=== PATIENT | male | born 1965 | race Caucasian/White ===

== ENCOUNTER 2017-04-18 20:29 | Emergency (ER) | payer BC, OTHER ==
[~2017-04-18] VITALS: Ht 185.4 cm; Wt 71.7 kg
[~2017-04-18 20:29] MED LIST: DPKEC500 PO; IBUP200C11 PO; KPP/250 PO
[2017-04-18 20:32] VITALS: TEMP 36.3; Ht 185.4 cm; Wt 71.7 kg
[2017-04-18] MEDS ORDERED: DPKEC250 PO (21:20)
[2017-04-18] MEDS ORDERED: ONDANSETRON INJ 2 MG/ML 2 ML VIAL IV STA (21:35)
[2017-04-18] MEDS ORDERED: SODIUM CHLORIDE 0.9% 1000ML 1,000 ML IV STA (21:35)
--- NOTE | 2017-04-18 21:39 | EMERGENCY ROOM VISIT NOTE ---
History Report prepared by Rajesh: Bobby Wolff Under the Supervision of: Dr. Bimal Ferreira D.O. First contact with patient: 21:31 Chief Complaint: DIZZY Stated Complaint: NAUSEA,DIZZY,FEVER,MIGRAINE Nursing Triage Summary: Pt c/o dizziness, nausea, mid abd pain since Friday. "I've been jane wobbly". Hx of Epilepsy History of Present Illness The patient is a 52 year old male who presents to the Emergency Room with complaints of a headache that began 2 days ago. He has a past medical history of migraines, and this is quite normal for him. He also has a history of epilepsy. However, his symptoms worsened today. 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 He denies any fevers, vomiting, diarrhea, or abnormal urinary symptoms. Source of History: patient Onset: 2 days ago Position: head Symptom Intensity: moderate Quality: ache Timing: worsening Associated Symptoms: + nausea, + abdominal pain, No fevers, No vomiting, No diarrhea, No urinary symptoms Note: He is also dizzy. Review of Systems See HPI for pertinent positives and negatives. A total of ten systems were reviewed and were otherwise negative. Past Medical & Surgical Medical Problems: (1) Epilepsy Unspec W/O Mention Intractable Epilepsy (2) Low back pain (3) Nasal Bone Fx-Open (4) Spasm of back muscles (5) Tobacco Use Disorder Family History Cancer Diabetes mellitus Lung disease Seizures Social History Smoking Status: Current Some Day Smoker Alcohol Use: none Housing Status: lives alone Occupation Status: employed Current/Historical Medications Scheduled Divalproex Sodium (Divalproex Sodium Dr), 1,000 MG PO BID Divalproex Sodium (Divalproex Sodium Dr), 250 MG PO BID Scheduled PRN Ibuprofen (Advil Migraine), 200 MG PO BID PRN for Headache Allergies Coded Allergies: Mushroom (Verified Allergy, Unknown, ., 02/05/16) Physical Exam Vital Signs Date Time Temp Pulse Resp B/P (MAP) Pulse Ox O2 Delivery O2 Flow Rate FiO2 04/18/17 21:47 61 18 113/78 96 Room Air 04/18/17 21:41 98 Room Air 04/18/17 21:12 96 Room Air 04/18/17 21:11 67 18 109/75 96 Room Air 04/18/17 21:02 68 04/18/17 20:32 36.3 91 18 107/75 97 Room Air Physical Exam GENERAL: Awake, alert, well-appearing, in no distress HENT: Normocephalic, atraumatic. Oropharynx unremarkable. Poor dentition. EYES: Normal conjunctiva. Sclera non-icteric. NECK: Supple. No nuchal rigidity. FROM. No JVD. RESPIRATORY: Clear to auscultation. CARDIAC: Regular rate, normal rhythm. Extremities warm and well perfused. Pulses equal. ABDOMEN: Soft, non-distended. No tenderness to palpation. No rebound or guarding. No masses. RECTAL: Deferred. MUSCULOSKELETAL: Chest examination reveals no tenderness. The back is symmetrical on inspection without obvious abnormality. There is no CVA tenderness to palpation. No joint edema. LOWER EXTREMITIES: Calves are equal size bilaterally and non-tender. No edema. No discoloration. NEURO: Normal sensorium. No sensory or motor deficits noted. SKIN: No rash or jaundice noted. Medical Decision & Procedures Laboratory Results 04/18/17 21:10 Red Blood Count 4.26, Mean Corpuscular Volume 90.4, Mean Corpuscular Hemoglobin 31.9, Mean Corpuscular Hemoglobin Concent 35.3, Mean Platelet Volume 10.1, Neutrophils (%) (Auto) 73.3, Lymphocytes (%) (Auto) 18.7, Monocytes (%) (Auto) 7.5, Eosinophils (%) (Auto) 0.3, Basophils (%) (Auto) 0.1, Neutrophils # (Auto) 5.47, Lymphocytes # (Auto) 1.40, Monocytes # (Auto) 0.56, Eosinophils # (Auto) 0.02, Basophils # (Auto) 0.01 04/18/17 21:10 Test 04/18/17 21:10 White Blood Count 7.47 K/uL (4.8-10.8) Red Blood Count 4.26 M/uL (4.7-6.1) Hemoglobin 13.6 g/dL (14.0-18.0) Hematocrit 38.5 % (42-52) Mean Corpuscular Volume 90.4 fL (80-100) Mean Corpuscular Hemoglobin 31.9 pg (25-34) Mean Corpuscular Hemoglobin Concent 35.3 g/dl (32-36) Platelet Count 154 K/uL (130-400) Mean Platelet Volume 10.1 fL (7.4-10.4) Neutrophils (%) (Auto) 73.3 % Lymphocytes (%) (Auto) 18.7 % Monocytes (%) (Auto) 7.5 % Eosinophils (%) (Auto) 0.3 % Basophils (%) (Auto) 0.1 % Neutrophils # (Auto) 5.47 K/uL (1.4-6.5) Lymphocytes # (Auto) 1.40 K/uL (1.2-3.4) Monocytes # (Auto) 0.56 K/uL (0.11-0.59) Eosinophils # (Auto) 0.02 K/uL (0-0.5) Basophils # (Auto) 0.01 K/uL (0-0.2) RDW Standard Deviation 43.2 fL (36.4-46.3) RDW Coefficient of Variation 13.1 % (11.5-14.5) Immature Granulocyte % (Auto) 0.1 % Immature Granulocyte # (Auto) 0.01 K/uL (0.00-0.02) Anion Gap 7.0 mmol/L (3-11) Est Creatinine Clear Calc Drug Dose 77.9 ml/min Estimated GFR () 87.7 Estimated GFR (Non- 75.7 BUN/Creatinine Ratio 29.3 (10-20) Calcium Level 8.4 mg/dl (8.5-10.1) Total Bilirubin 0.2 mg/dl (0.2-1) Direct Bilirubin < 0.1 mg/dl (0-0.2) Aspartate Amino Transf (AST/SGOT) 15 U/L (15-37) Alanine Aminotransferase (ALT/SGPT) 21 U/L (12-78) Alkaline Phosphatase 41 U/L (45-117) Total Protein 6.3 gm/dl (6.4-8.2) Albumin 3.2 gm/dl (3.4-5.0) Laboratory results reviewed by me Medications Administered Medications (Trade) Dose Ordered Sig/Juan Route Start Time Stop Time Status Last Admin Dose Admin Sodium Chloride 1,000 ml @ 999 mls/hr Q1H1M STAT IV 04/18/17 21:35 04/18/17 22:35 04/18/17 21:44 999 MLS/HR Ondansetron HCl (Zofran Inj) 4 mg NOW STAT IV 04/18/17 21:35 04/18/17 21:37 DC 04/18/17 21:44 4 MG ECG Indication: nausea Rate (beats per minute): 64 Rhythm: sinus rhythm Findings: RBBB, no acute ischemic change, other (Normal axis) ED Course 2130: The patient was evaluated in room B4B. A complete history and physical exam was performed. 2134: Ordered Zofran Inj 4 mg IV, Sodium Chloride 1000 ml @ 999 mls/hr IV 2215: I reevaluated the patient. Discussed results and discharge instructions: He verbalized understanding and agreement. The patient is ready for discharge. Medical Decision Differential diagnoses include dehydration, metabolic derangement, viral syndrome, and gastroenteritis. 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 I suspect that his symptoms are suggestive of dehydration. Patient states much improved at 2218 on reexamination. Patient is nonfocal neurologically. Medication Reconcilliation Current Medication List: was personally reviewed by me Blood Pressure Screening Patient's blood pressure: Normal blood pressure Blood pressure disposition: Did not require urgent referral Impression Primary Impression: Dizziness Additional Impression: Mild dehydration Scribe Attestation The scribe's documentation has been prepared under my direction and personally reviewed by me in its entirety. I confirm that the note above accurately reflects all work, treatment, procedures, and medical decision making performed by me. Departure Information Dispostion Home / Self-Care Referrals Faraz Downey, Corina.O. (PCP) Forms HOME CARE DOCUMENTATION FORM, IMPORTANT VISIT INFORMATION Patient Instructions ED Dehydration, My [facility] Health Problem Qualifiers
[2017-04-18 21:41] VITALS: O2SAT 98
[2017-04-18 21:45] LABS: BASO % 0.1 %; BASO ABS # 0.01 K/uL (0-0.2); COMPLETE YES; EOS % 0.3 %; HEMATOCRIT 38.5 % (42-52); IG% 0.1 %; LYMPH % 18.7 %; MEAN CELL VOLUME 90.4 fL (80-100); MEAN CORPUSCULAR HEMOGLOBIN 31.9 pg (25-34); MEAN CORPUSCULAR HGB CONC 35.3 g/dl (32-36); MEAN PLATELET VOLUME 10.1 fL (7.4-10.4); MONO % 7.5 %; NEUT % 73.3 %; PLATELET COUNT 154 K/uL (130-400); RED BLOOD COUNT 4.26 M/uL (4.7-6.1); WHITE BLOOD COUNT 7.47 K/uL (4.8-10.8)
[2017-04-18 21:52] LABS: ALT/SGPT 21 U/L (12-78); BLOOD UREA NITROGEN 32 mg/dl (7-18); BUN/CREATININE RATIO 29.3 (10-20); CALCIUM 8.4 mg/dl (8.5-10.1); CARBON DIOXIDE 27 mmol/L (21-32); CHLORIDE 103 mmol/L (98-107); GLUCOSE 197 mg/dl (70-99); POTASSIUM 3.7 mmol/L (3.5-5.1); SODIUM 137 mmol/L (136-145)
[2017-04-18 21:55] LABS: ALKALINE PHOSPHATASE 41 U/L (45-117); AST/SGOT 15 U/L (15-37)
[2017-04-18 22:26] VITALS: BP 127/80; PULSE 75; O2SAT 100
== END 2017-04-18 22:43 | disposition home or self-care (01) ==
LOC: C.EDB 20:30
DX: R42 Dizziness and giddiness (principal); E86.0 Dehydration; G40.909 Epilepsy, unspecified, not intractable, without status epilepticus; F17.210 Nicotine dependence, cigarettes, uncomplicated; Z80.9 Family history of malignant neoplasm, unspecified; Z83.3 Family history of diabetes mellitus; Z82.0 Family history of epilepsy and other diseases of the nervous system; Z79.899 Other long term (current) drug therapy

== ENCOUNTER 2017-07-17 21:35 | Emergency (ER) | payer OTHER ==
[~2017-07-17] VITALS: Ht 185.4 cm; Wt 68.4 kg
[~2017-07-17 21:35] MED LIST changes: +DPKEC250 PO; -KPP/250 PO
[2017-07-17 21:42] VITALS: Ht 185.4 cm; Wt 68.4 kg
--- NOTE | 2017-07-17 22:03 | EMERGENCY ROOM VISIT NOTE ---
History Report prepared by Rajesh: Leonard Tobin Under the Supervision of: Dr. Melodie Clark D.O. First contact with patient: 21:48 Chief Complaint: SEIZURE Stated Complaint: POSSIBLE SEIZURE RELATED SX History of Present Illness The patient is a 52 year old male with a history of epilepsy who presents to the Emergency Room with complaints of a possible seizure episode that most likely occurred yesterday. He says that he has not had a seizure "in years", but notes that he does not remember anything yesterday, and thinks that he slept through all of yesterday. 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 The patient states that he woke up this morning with soreness around his mouth, gums, and lips. He notes that he has been taking his medications (Depakote and Keppra). He denies any recent illnesses, falls, bruises or other trauma. He also denies any changes in his medications recently. He adds that he has a family history of seizures. He states that the only thing he can think of recently was that at work recently it has been hot, and says that he should be drinking more electrolytes, but he states that he has been keeping up with drinking water. The patient says that he is not aware of any triggers of his seizures. Currently, he states that he feels a little dizzy, with a bit of a headache. He denies any urinary incontinence. Source of History: patient, nursing staff Onset: Most likely occurred yesterday Position: other (global - possible seizure) Symptom Intensity: woke up with facial soreness Quality: other (does not remember any of yesterday) Timing: other (episode) Associated Symptoms: + headache, No urinary symptoms Note: Associated symptoms: Currently dizzy. Has soreness around mouth, gums, lips. Denies recent illnesses or falls. Denies bruises. Review of Systems See HPI for pertinent positives & negatives. A total of 10 systems reviewed and were otherwise negative. Past Medical & Surgical Medical Problems: (1) Epilepsy Unspec W/O Mention Intractable Epilepsy (2) Low back pain (3) Nasal Bone Fx-Open (4) Spasm of back muscles (5) Tobacco Use Disorder Family History Cancer Diabetes mellitus Lung disease Seizures Social History Smoking Status: Light Tobacco Smoker Alcohol Use: none Housing Status: lives alone Occupation Status: employed Current/Historical Medications Scheduled Divalproex Sodium (Divalproex Sodium Dr), 1,000 MG PO BID Divalproex Sodium (Divalproex Sodium Dr), 250 MG PO BID Levetiracetam (Keppra), 500 MG PO BID Scheduled PRN Ibuprofen (Advil Migraine), 200 MG PO BID PRN for Headache Allergies Coded Allergies: Mushroom (Verified Allergy, Unknown, "ENDED UP IN HOSPITAL", 07/17/17) Physical Exam Vital Signs Date Time Temp Pulse Resp B/P (MAP) Pulse Ox O2 Delivery O2 Flow Rate FiO2 07/18/17 01:44 36.6 74 18 119/87 98 07/18/17 01:30 74 18 119/87 98 Room Air 07/18/17 00:37 64 18 129/83 98 Room Air 07/17/17 22:50 67 18 107/58 98 Room Air 07/17/17 21:42 36.6 79 18 121/76 97 Room Air Physical Exam GENERAL: alert, well appearing, well nourished, no distress, non-toxic, odd affect, poor personal hygiene EYE EXAM: normal conjunctiva, PERRL and EOM's grossly intact OROPHARYNX: no exudate, no erythema, lips, buccal mucosa, and tongue has no evidence of contusion, and mucous membranes are moist NECK: supple, no nuchal rigidity, no adenopathy, non-tender LUNGS: Clear to auscultation. Normal chest wall mechanics HEART: no murmurs, S1 normal and S2 normal ABDOMEN: abdomen soft, non-tender, normo-active bowel sounds, no masses, no rebound or guarding. BACK: Back is symmetrical on inspection and there is no deformity, no midline tenderness, no CVA tenderness. SKIN: no rashes and no bruising UPPER EXTREMITIES: upper extremities are grossly normal. LOWER EXTREMITIES: No pitting edema. NEURO EXAM: Normal sensorium, cranial nerves II-XII grossly intact, normal speech, no gross weakness of arms, no gross weakness of legs. Medical Decision & Procedures ER Provider Diagnostic Interpretation: Radiology results have been interpreted by the radiologist and reviewed by me. CT OF THE HEAD WITHOUT CONTRAST CLINICAL HISTORY: Possible seizure. COMPARISON STUDY: Head CT March 22, 2016. CT DOSE: 614.27 mGy.cm TECHNIQUE: Helical axial images of the head were obtained without IV contrast. Automated exposure control was utilized for the study. A dose lowering technique was utilized adhering to the principles of ALARA. FINDINGS: No acute intracranial hemorrhage, midline shift or mass effect is present. Ventricular system is normal. Basilar cisterns are patent. There are no extra-axial collections. Ellis-white differentiation is maintained. There are no findings to suggest acute dural sinus thrombosis or acute territorial infarct. Old nasal bone deformity is noted. There is no acute calvarial fracture. Bilateral mastoid air cells are partially opacified. This is unchanged since previous exams. IMPRESSION: No acute intracranial findings. Electronically signed by: Tin Tinoco M.D. 07/17/2017 10:59 PM Dictated Date/Time: 07/17/2017 10:55 PM CHEST ONE VIEW PORTABLE CLINICAL HISTORY: Altered mental status. COMPARISON STUDY: Chest radiograph March 07, 2007. FINDINGS: There are several old bilateral rib fractures. No pneumothorax or pleural effusion is present. Pulmonary vascularity is normal. Cardiomediastinal silhouette is normal. There is a possible 2.3 cm airspace opacity with the left upper lung. This is likely artifactual. IMPRESSION: No definite acute cardiopulmonary findings. Equivocal 2.3 cm left upper lung airspace opacity. This is likely artifactual however a small focus of pneumonia or less likely a pulmonary nodule could appear similar. Short-term follow-up PA and shallow oblique radiographs of the chest are recommended. Electronically signed by: Tin Tinoco M.D. 07/17/2017 11:04 PM Dictated Date/Time: 07/17/2017 11:01 PM Laboratory Results 07/17/17 22:29 Red Blood Count 3.98, Mean Corpuscular Volume 97.2, Mean Corpuscular Hemoglobin 31.4, Mean Corpuscular Hemoglobin Concent 32.3, Mean Platelet Volume 9.8, Neutrophils (%) (Auto) 62.5, Lymphocytes (%) (Auto) 26.3, Monocytes (%) (Auto) 9.8, Eosinophils (%) (Auto) 0.8, Basophils (%) (Auto) 0.4, Neutrophils # (Auto) 3.11, Lymphocytes # (Auto) 1.31, Monocytes # (Auto) 0.49, Eosinophils # (Auto) 0.04, Basophils # (Auto) 0.02 07/17/17 22:29 Test 12/7/17 22:29 07/17/17 23:14 White Blood Count 4.98 K/uL (4.8-10.8) Red Blood Count 3.98 M/uL (4.7-6.1) Hemoglobin 12.5 g/dL (14.0-18.0) Hematocrit 38.7 % (42-52) Mean Corpuscular Volume 97.2 fL (80-100) Mean Corpuscular Hemoglobin 31.4 pg (25-34) Mean Corpuscular Hemoglobin Concent 32.3 g/dl (32-36) Platelet Count 143 K/uL (130-400) Mean Platelet Volume 9.8 fL (7.4-10.4) Neutrophils (%) (Auto) 62.5 % Lymphocytes (%) (Auto) 26.3 % Monocytes (%) (Auto) 9.8 % Eosinophils (%) (Auto) 0.8 % Basophils (%) (Auto) 0.4 % Neutrophils # (Auto) 3.11 K/uL (1.4-6.5) Lymphocytes # (Auto) 1.31 K/uL (1.2-3.4) Monocytes # (Auto) 0.49 K/uL (0.11-0.59) Eosinophils # (Auto) 0.04 K/uL (0-0.5) Basophils # (Auto) 0.02 K/uL (0-0.2) RDW Standard Deviation 51.6 fL (36.4-46.3) RDW Coefficient of Variation 14.4 % (11.5-14.5) Immature Granulocyte % (Auto) 0.2 % Immature Granulocyte # (Auto) 0.01 K/uL (0.00-0.02) Prothrombin Time 10.7 SECONDS (9.0-12.0) Prothromb Time International Ratio 1.0 (0.9-1.1) Anion Gap 4.0 mmol/L (3-11) Est Creatinine Clear Calc Drug Dose 154.2 ml/min Estimated GFR () 139.0 Estimated GFR (Non- 120.0 BUN/Creatinine Ratio 47.7 (10-20) Calcium Level 8.2 mg/dl (8.5-10.1) Phosphorus Level 2.5 mg/dl (2.5-4.9) Magnesium Level 1.8 mg/dl (1.8-2.4) Total Bilirubin 0.2 mg/dl (0.2-1) Aspartate Amino Transf (AST/SGOT) 9 U/L (15-37) Alanine Aminotransferase (ALT/SGPT) 17 U/L (12-78) Alkaline Phosphatase 35 U/L (45-117) Total Creatine Kinase 67 U/L (39-308) Troponin I < 0.015 ng/ml (0-0.045) Total Protein 6.3 gm/dl (6.4-8.2) Albumin 3.3 gm/dl (3.4-5.0) Globulin 3.0 gm/dl (2.5-4.0) Albumin/Globulin Ratio 1.1 (0.9-2) Thyroid Stimulating Hormone (TSH) 1.110 uIu/ml (0.300-4.500) Valproic Acid (Depakene) Level 73 mcg/ml (50-100) Ethyl Alcohol mg/dL < 3.0 mg/dl (0-3) Urine Color YELLOW Urine Appearance CLEAR (CLEAR) Urine pH 7.0 (4.5-7.5) Urine Specific [place] 1.025 (1.000-1.030) Urine Protein NEG (NEG) Urine Glucose (UA) NEG (NEG) Urine Ketones TRACE (NEG) Urine Occult Blood NEG (NEG) Urine Nitrite NEG (NEG) Urine Bilirubin NEG (NEG) Urine Urobilinogen NEG (NEG) Urine Leukocyte Esterase NEG (NEG) Urine Opiates Screen NEG (NEG) Urine Methadone, Qualitative NEG (NEG) Urine Barbiturates NEG (NEG) Urine Phencyclidine (PCP) Level NEG (NEG) Ur Amphetamine/Methamphetamine NEG (NEG) MDMA (Ecstasy) Screen NEG (NEG) Urine Benzodiazepines Screen NEG (NEG) Urine Cocaine Metabolite NEG (NEG) Urine Marijuana (THC) NEG (NEG) Laboratory results per my review. ECG Indication: other (seizure) Rate (beats per minute): 68 Rhythm: normal sinus Findings: no acute ischemic change, no ectopy, other (normal axis, normal intervals) ED Course 2153: The patient was evaluated in room B7. A complete history and physical exam was performed. 0055: Upon reevaluation, the patient is feeling better without any recurrent symptoms. I discussed the findings and the treatment plan with the patient. He verbalizes agreement and understanding. He will be discharged home. Medical Decision Differential diagnosis includes etiologies such as infection, hypoglycemia, electrolyte abnormalities, cardiac sources, intracerebral event, trauma, toxicologic, neurologic, as well as others were entertained. Unclear etiology of pt's stated complaint, however seizure highly probable given pt's hx, lack of other findings, and small lip lac. Pt typically well controlled with seizure and no clear triggers that he recalls. Denies any recent illness, no fevers/chills. Denies missing meds or any recent med changes. Pt doesn't drive. Sees a neurologist at [facility] once a year. Labs and imaging reassuring. Pt states he awoke in bed, low suspicion for any occult traumatic injury. Do not suspect abnormality on cxr pneumonia given lack of other sx, no fever or leukocytosis. I do not suspect related to drug/ etoh use. Pt well appearing here, tolerating po, and ambulating with a steady gait. DIscussed close f/u with his neurologist, pt couldn't remember the name here, but states has the number at home to call. Discussed sx to watch/return for, continued use of his meds, he verbalized understanding and was agreeable with plan. Medication Reconcilliation Current Medication List: was personally reviewed by me Blood Pressure Screening Patient's blood pressure: Normal blood pressure Impression Primary Impression: Seizure Scribe Attestation The scribe's documentation has been prepared under my direction and personally reviewed by me in its entirety. I confirm that the note above accurately reflects all work, treatment, procedures, and medical decision making performed by me. Departure Information Dispostion Home / Self-Care Referrals Faraz Downey D.O. (PCP) Patient Instructions My [facility] Additional Instructions Please follow up with your neurologist given your suspected recurrent seizure. Please continue your medications as prescribed. Please do not drive or use alcohol. Please continue to eat and drink regularly. If you notice any abnormal headaches, have recurrent episodes of possible seizures, develop vomiting, vision changes, fevers, you've any other new concerns, please return the emergency room.
[2017-07-17] MEDS ORDERED: LEVE250T PO (22:13)
[2017-07-17 22:40] LABS: BASO % 0.4 %; BASO ABS # 0.02 K/uL (0-0.2); COMPLETE YES; EOS % 0.8 %; HEMATOCRIT 38.7 % (42-52); IG% 0.2 %; LYMPH % 26.3 %; LYMPH ABS # 1.31 K/uL (1.2-3.4); MEAN CELL VOLUME 97.2 fL (80-100); MEAN CORPUSCULAR HEMOGLOBIN 31.4 pg (25-34); MEAN CORPUSCULAR HGB CONC 32.3 g/dl (32-36); MEAN PLATELET VOLUME 9.8 fL (7.4-10.4); MONO % 9.8 %; NEUT % 62.5 %; PLATELET COUNT 143 K/uL (130-400); RED BLOOD COUNT 3.98 M/uL (4.7-6.1); WHITE BLOOD COUNT 4.98 K/uL (4.8-10.8)
[2017-07-17 22:51] LABS: PROTHROMBIN TIME (PATIENT) 10.7 SECONDS (9.0-12.0)
[2017-07-17 22:59] LABS: ALT/SGPT 17 U/L (12-78); BLOOD UREA NITROGEN 25 mg/dl (7-18); BUN/CREATININE RATIO 47.7 (10-20); CALCIUM 8.2 mg/dl (8.5-10.1); CARBON DIOXIDE 29 mmol/L (21-32); CHLORIDE 108 mmol/L (98-107); CREATININE 0.53 mg/dl (0.60-1.40); GLUCOSE 94 mg/dl (70-99); MAGNESIUM 1.8 mg/dl (1.8-2.4); POTASSIUM 4.5 mmol/L (3.5-5.1); SODIUM 140 mmol/L (136-145)
--- NOTE | 2017-07-17 23:00 | DIAGNOSTIC IMAGING REPORT ---
CT OF THE HEAD WITHOUT CONTRAST CLINICAL HISTORY: Possible seizure. COMPARISON STUDY: Head CT March 22, 2016. CT DOSE: 614.27 mGy.cm TECHNIQUE: Helical axial images of the head were obtained without IV contrast. Automated exposure control was utilized for the study. A dose lowering technique was utilized adhering to the principles of ALARA. FINDINGS: No acute intracranial hemorrhage, midline shift or mass effect is present. Ventricular system is normal. Basilar cisterns are patent. There are no extra-axial collections. Ellis-white differentiation is maintained. There are no findings to suggest acute dural sinus thrombosis or acute territorial infarct. Old nasal bone deformity is noted. There is no acute calvarial fracture. Bilateral mastoid air cells are partially opacified. This is unchanged since previous exams. IMPRESSION: No acute intracranial findings. Electronically signed by: Tin Tinoco M.D. 07/17/2017 10:59 PM Dictated Date/Time: 07/17/2017 10:55 PM
--- NOTE | 2017-07-17 23:06 | DIAGNOSTIC IMAGING REPORT ---
CHEST ONE VIEW PORTABLE CLINICAL HISTORY: Altered mental status. COMPARISON STUDY: Chest radiograph March 07, 2007. FINDINGS: There are several old bilateral rib fractures. No pneumothorax or pleural effusion is present. Pulmonary vascularity is normal. Cardiomediastinal silhouette is normal. There is a possible 2.3 cm airspace opacity with the left upper lung. This is likely artifactual. IMPRESSION: No definite acute cardiopulmonary findings. Equivocal 2.3 cm left upper lung airspace opacity. This is likely artifactual however a small focus of pneumonia or less likely a pulmonary nodule could appear similar. Short-term follow-up PA and shallow oblique radiographs of the chest are recommended. Electronically signed by: Tin Tinoco M.D. 07/17/2017 11:04 PM Dictated Date/Time: 07/17/2017 11:01 PM
[2017-07-17 23:10] LABS: ALB/GLOB RATIO 1.1 (0.9-2); ALKALINE PHOSPHATASE 35 U/L (45-117); AST/SGOT 9 U/L (15-37); PHOSPHORUS 2.5 mg/dl (2.5-4.9)
[2017-07-17 23:30] LABS: URINE APPEARANCE CLEAR (CLEAR); URINE BILIRUBIN NEG (NEG); URINE COLOR YELLOW; URINE NITRITE NEG (NEG); URINE SPECIFIC GRAVITY 1.025 (1.000-1.030); UROBILINOGEN NEG (NEG); ZZUR CULT IF INDIC CLEAN CATCH NO
[2017-07-17 23:34] LABS: MANUAL MICROSCOPIC REQUIRED? NO; REVIEW REQ? NO
[2017-07-17 23:50] LABS: BENZODIAZEPINE, URINE NEG (NEG); COCAINE,URINE NEG (NEG); PHENCYCLIDINE, URINE NEG (NEG)
[2017-07-18 01:44] VITALS: BP 119/87; PULSE 74; TEMP 36.6; O2SAT 98
== END 2017-07-18 01:45 | disposition home or self-care (01) ==
LOC: C.EDB 21:36
DX: G40.909 Epilepsy, unspecified, not intractable, without status epilepticus (principal); F17.210 Nicotine dependence, cigarettes, uncomplicated; Z80.9 Family history of malignant neoplasm, unspecified; Z83.3 Family history of diabetes mellitus; Z82.0 Family history of epilepsy and other diseases of the nervous system

== ENCOUNTER 2024-10-09 00:59 | Inpatient (IN) ==
[2024-10-09 01:41] LABS: Basophils # (auto) 0.04 K/uL (0.00-0.20); Basophils % (auto) 0.5 %; Eosinophils # (auto) 0.01 K/uL (0.00-0.50); Eosinophils % (auto) 0.1 %; Hemoglobin 13.9 g/dl (14.0-18.0); Immature Granulocytes # (auto) 0.02 K/uL (0.01-0.20); Immature Granulocytes % (auto) 0.2 %; Lymphocytes # (auto) 1.86 K/uL (1.20-3.40); Mean Corpuscular Hemoglobin 30.3 pg (25.0-34.0); Mean Corpuscular Hgb Conc 33.1 g/dL (32.0-36.0); Mean Corpuscular Volume 91.7 fL (80.0-100.0); Monocytes # (auto) 0.58 K/uL (0.11-0.59); Monocytes % (auto) 6.6 %; Neutrophils # (auto) 6.33 K/uL (1.40-6.50); Neutrophils % (auto) 71.6 %; Platelet Count 189 K/uL (130-400); RDW Coefficient of Variation 13.2 % (11.5-14.5); RDW Standard Deviation 44.5 fL (36.4-46.3); Red Blood Count 4.58 M/uL (4.70-6.10); White Blood Count 8.84 K/ul (4.8-10.8)
[2024-10-09 01:55] LABS: Albumin Globulin Ratio 1.6 (0.9-2); Albumin Level 4.2 gm/dl (3.4-5.0); BUN Creatinine Ratio 45.8 (10-20); Bilirubin,Total 0.3 mg/dl (0.2-1.0); Calcium 9.4 mg/dl (8.6-10.3); Creatinine Clr Calc Pharmacy 139.5 ml/min; Globulin 2.6 gm/dl (2.5-4.0); Magnesium 1.8 mg/dl (1.7-2.4); Potassium 4.7 mmol/L (3.5-5.1); Total Protein 6.8 gm/dl (6.0-8.3)
[2024-10-09 01:56] LABS: Acetaminophen < 3 ug/ml (10-30); Salicylate < 3.0 mg/dl (3.0-30)
[2024-10-09 02:11] LABS: Partial Thromboplastin Ratio 0.9; Partial Thromboplastin Time 24 Seconds (21-31); Prothrombin Time 10.9 Seconds (9.0-12.0)
--- NOTE | 2024-10-09 02:56 | CT Scan Report ---
EXAM: CT head/brain wo con CLINICAL HISTORY: Seizure, hx of parkinsons. TECHNIQUE: Axial non-contrast CT scan of the brain was performed from the skull base to the high parietal region. One of the following dose reduction techniques were utilized for this exam: Automated exposure control, adjustment of the mA and/or kV according to patient size, use of iterative reconstruction. CTDI: 75.22 mGy. DLP: 859.95 mGy.cm. COMPARISON: 07/17/2017 CT. FINDINGS: Brain Parenchyma: Normal attenuation of the cerebral hemispheres, cerebellum, and brainstem. Age-related parenchymal volume loss with capacious CSF spaces. No acute brain hemorrhage or major territorial infarct. Ventricular System: No evidence of hydrocephalus or ventricular enlargement. Subarachnoid Spaces: No evidence of subarachnoid hemorrhage or extra-axial fluid collections. Cerebellum and Brainstem: No masses, lesions, or areas of abnormal densities. Orbits: No evidence of orbital masses or abnormal densities. Sinuses: Mucosal thickening of both maxillary antra with air-fluid leveling noted on the left. Minimal opacification of the ethmoid air cells. Mastoid Air Cells: Unchanged opacification and hypo-pneumatization of the mastoid air cells. Skull: Unchanged left nasal bone deformity/old fracture. Unchanged right occipital bone posterior. No acute displaced fractures. IMPRESSION: 1. No acute brain hemorrhage or major territorial infarct. 2. Newly appreciated mucosal thickening/partial opacification of the mastoid air cells and minimal opacification of the ethmoid sinus. Clinical correlation is advised to assess for sinusitis. 3. Unchanged hypopneumatization and partial opacification of the mastoid air cells. 4. No other significant interval change. Electronically signed by Gianna Cavanaugh 10-09-2024 02:56 AM
--- NOTE | 2024-10-09 04:25 | Emergency Department Note ---
History of Present Illness General Chief complaint: Seizure Stated complaint: Possible Seizure Time Seen by Provider: 10/09/24 01:08 History of Present Illness Provider complaint: Possible seizure 59-year-old male with history of Parkinson's, seizure disorder presents to the emergency department for possible seizure. Patient works at [employer] and while working he reportedly passed out. Patient reports a seizure yesterday. Patient states he does not remember what happened. Patient [place] any headache or neck pain. No falls. No fevers. Home Medications Medication Instructions Recorded Confirmed Type divalproex 250 mg tablet,delayed 250 mg PO BID 04/21/19 10/09/24 History release divalproex 500 mg tablet,delayed 1,000 mg PO BID 04/21/19 10/09/24 History release levetiracetam 250 mg tablet 500 mg PO BID 04/21/19 10/09/24 History tgeievn-ykmaxpdqbzdek-jngnahjm 250 1 tab PO BID PRN Headache 06/04/19 10/09/24 History mg-250 mg-65 mg tablet (Excedrin Migraine) ibuprofen 200 mg tablet 200 mg PO Q6H PRN Pain 06/04/19 10/09/24 History carbidopa ER 50 mg-levodopa 200 mg 1 tab PO BID 10/09/24 10/09/24 History tablet,extended release Allergies Allergy/AdvReac Type Severity Reaction Status Date / Time mushroom Allergy Unknown "ENDED UP Verified 10/09/24 04:03 IN HOSPITAL" Past Med/Surg History Problem List (Updated 10/09/24 @ 04:25 by Hemanth Zhu MD) Seizure-like activity (Acute) Grand mal seizure (Acute) Seizure (Acute) Medical History Parkinson disease Epilepsy Surgical History No significant past surgical history Family History Other Lung cancer Social History Smoking Status: Light tobacco smoker Preferred Language: Hebrew marital status: Single Current Living Situation: Alone current occupational status: employed Feels Safe at Home: Yes Physical Exam Vital Signs Vital Signs - 24 hr 10/09/24 01:05 10/09/24 01:20 10/09/24 02:00 Temperature 36.5 C Temperature Source Oral Pulse Rate 85 80 Pulse Rate [Apical] 80 Respiratory Rate 24 20 Blood Pressure 144/85 H Blood Pressure [Left Arm] 131/97 Blood Pressure Mean 104 Blood Pressure Mean [Left Arm] 108 Pulse Oximetry 96 94 Oxygen Delivery Method Room Air Room Air Sepsis Recent Fever Within 48 Hours No Sepsis New/Unexplained Change in Mental Status No Sepsis Action Taken by Nursing No Action Required 10/09/24 03:00 Temperature Temperature Source Pulse Rate Pulse Rate [Apical] 72 Respiratory Rate 18 Blood Pressure Blood Pressure [Left Arm] 117/67 Blood Pressure Mean Blood Pressure Mean [Left Arm] 83 Pulse Oximetry 93 Oxygen Delivery Method Room Air Sepsis Recent Fever Within 48 Hours Sepsis New/Unexplained Change in Mental Status Sepsis Action Taken by Nursing Physical Exam GENERAL: He is oriented to person, place, and time. HENT: Exam performed. - Head: Normocephalic and atraumatic. NECK: Normal range of motion. Neck supple. No JVD present. No rigidity. No tracheal deviation and normal range of motion present. CV: Normal rate, regular rhythm, normal heart sounds and intact distal pulses. There is no peripheral edema. Palpable radial pulses bue. PULM/CHEST: Effort normal and breath sounds normal. No respiratory distress. No stridor. He has no wheezes. He has no rales. ABD: The abdomen is soft. He has no distension. No mass is present. There is no tenderness. There is no rebound, no guarding, no Bonilla's sign and no tenderness at McBurney's point. Rovsig negative. MUSC/SKEL: Normal range of motion. There is no peripheral edema, tenderness or deformity. NEURO: He is alert and oriented to person, place, and time. Patient has tremor. He has normal strength. No cranial nerve deficit or sensory deficit. Coordination and gait normal. PSYCH: Bizarre affect Course Course 0108: The patient was evaluated in room B9. A complete history and physical exam was performed Cardiac monitoring: An order was placed for continuous cardiac monitoring. The monitor shows a rate of 80 with sinus rhythm interpreted by me Patient presents with large amount of pills randomly placed in an empty prescription bottle stating take in case of emergency. The pills. Different size and shape and it is not clear what they are for. 0315: Vital signs stable. Labs and imaging are unremarkable. Is unclear if the patient had a seizure or syncopal episode. Patient will be admitted for possible workup of seizure versus syncope. Medical Decision Making Laboratory Data Attestation: I reviewed the patient's lab results. 10/09/24 01:16 10/09/24 01:16 Lab Results 10/09/24 Range/Units 01:16 WBC 8.84 (4.8-10.8) K/ul RBC 4.58 L (4.70-6.10) M/uL Hgb 13.9 L (14.0-18.0) g/dl Hct 42.0 (42.0-52.0) % MCV 91.7 (80.0-100.0) fL MCH 30.3 (25.0-34.0) pg MCHC 33.1 (32.0-36.0) g/dL RDW Std Deviation 44.5 (36.4-46.3) fL RDW Coeff of Alley 13.2 (11.5-14.5) % Plt Count 189 (130-400) K/uL MPV 10.0 (9.4-12.4) fL Immature Gran % (Auto) 0.2 % Neut % (Auto) 71.6 % Lymph % (Auto) 21.0 % Swift % (Auto) 6.6 % Eos % (Auto) 0.1 % Baso % (Auto) 0.5 % Neut # (Auto) 6.33 (1.40-6.50) K/uL Lymph # (Auto) 1.86 (1.20-3.40) K/uL Swift # (Auto) 0.58 (0.11-0.59) K/uL Eos # (Auto) 0.01 (0.00-0.50) K/uL Baso # (Auto) 0.04 (0.00-0.20) K/uL Immature Gran # (Auto) 0.02 (0.01-0.20) K/uL PT 10.9 (9.0-12.0) Seconds INR 1.0 (0.9-1.1) APTT 24 (21-31) Seconds PTT Ratio 0.9 Sodium 133 L (136-145) mmol/L Potassium 4.7 (3.5-5.1) mmol/L Chloride 100 (98-107) mmol/L Carbon Dioxide 27 (21-32) mmol/L Anion Gap 6 (3-11) BUN 27 H (6-23) mg/dl Creatinine 0.59 L (0.6-1.4) mg/dl Est Cr Clr Drug Dosing 139.5 ml/min eGFR 110.39 BUN/Creatinine Ratio 45.8 H (10-20) Glucose 86 (70-99(Fasting)) mg/dl Lactate 1.5 (0.4-2.0) mmol/L Calcium 9.4 (8.6-10.3) mg/dl Magnesium 1.8 (1.7-2.4) mg/dl Total Bilirubin 0.3 (0.2-1.0) mg/dl AST 16 (13-39) U/L ALT 11 (7-52) U/L Alkaline Phosphatase 44 (34-104) U/L Ammonia 49.0 (18-72) umol/L Total Protein 6.8 (6.0-8.3) gm/dl Albumin 4.2 (3.4-5.0) gm/dl Globulin 2.6 (2.5-4.0) gm/dl Albumin/Globulin Ratio 1.6 (0.9-2) Prolactin 20.85 ng/ml Salicylates < 3.0 L (3.0-30) mg/dl Acetaminophen < 3 L (10-30) ug/ml Ethyl Alcohol mg/dL < 10.0 (<10.0) mg/dl Imaging Data Radiologist's Impression: Head CT 10/09/24 01:05 EXAM: CT head/brain wo con CLINICAL HISTORY: Seizure, hx of parkinsons. TECHNIQUE: Axial non-contrast CT scan of the brain was performed from the skull base to the high parietal region. One of the following dose reduction techniques were utilized for this exam: Automated exposure control, adjustment of the mA and/or kV according to patient size, use of iterative reconstruction. CTDI: 75.22 mGy. DLP: 859.95 mGy.cm. COMPARISON: 07/17/2017 CT. FINDINGS: Brain Parenchyma: Normal attenuation of the cerebral hemispheres, cerebellum, and brainstem. Age-related parenchymal volume loss with capacious CSF spaces. No acute brain hemorrhage or major territorial infarct. Ventricular System: No evidence of hydrocephalus or ventricular enlargement. Subarachnoid Spaces: No evidence of subarachnoid hemorrhage or extra-axial fluid collections. Cerebellum and Brainstem: No masses, lesions, or areas of abnormal densities. Orbits: No evidence of orbital masses or abnormal densities. Sinuses: Mucosal thickening of both maxillary antra with air-fluid leveling noted on the left. Minimal opacification of the ethmoid air cells. Mastoid Air Cells: Unchanged opacification and hypo-pneumatization of the mastoid air cells. Skull: Unchanged left nasal bone deformity/old fracture. Unchanged right occipital bone posterior. No acute displaced fractures. IMPRESSION: 1. No acute brain hemorrhage or major territorial infarct. 2. Newly appreciated mucosal thickening/partial opacification of the mastoid air cells and minimal opacification of the ethmoid sinus. Clinical correlation is advised to assess for sinusitis. 3. Unchanged hypopneumatization and partial opacification of the mastoid air cells. 4. No other significant interval change. Electronically signed by Gianna Cavanaugh 10-09-2024 02:56 AM MDM Narrative 0108: The patient was evaluated in room B9. A complete history and physical exam was performed Cardiac monitoring: An order was placed for continuous cardiac monitoring. The monitor shows a rate of 80 with sinus rhythm interpreted by me Patient presents with large amount of pills randomly placed in an empty prescription bottle stating take in case of emergency. The pills. Different size and shape and it is not clear what they are for. 0315: Vital signs stable. Labs and imaging are unremarkable. Is unclear if the patient had a seizure or syncopal episode. Patient will be admitted for possible workup of seizure versus syncope. Impression & Plan Seizure-like activity Discharge Plan Visit Data Chief Complaint: Seizure Stated Complaint: Possible Seizure ED Provider: Hemanth Zhu Discharge Problem: Seizure-like activity Patient Disposition: Being Evaluated by Hospitalist Forms Stand Alone Forms: [facility] Prescriptions Prescriptions: No Action divalproex 250 mg tablet,delayed release (DR/EC) 250 mg PO BID Rx Instructions: takes at 0300 and 1500 divalproex 500 mg tablet,delayed release (DR/EC) 1,000 mg PO BID Rx Instructions: takes at 0300 and 1500 levetiracetam 250 mg tablet 500 mg PO BID Rx Instructions: takes at 0300 and 1500 ibuprofen 200 mg Tablet 200 mg PO Q6H PRN (Reason: Pain) Excedrin Migraine 250-250-65 mg Tablet 1 tab PO BID PRN (Reason: Headache) Patient Comments: Patient states he normally takes daily. (06/03/19) carbidopa-levodopa 50-200 mg tablet extended release 1 tab PO BID Referrals Referrals: Faraz Downey, [Primary Care Provider] -
[2024-10-09] MEDS: DIVALPROEX DELAY RELEASE 500 MG TAB PO STA (05:16)
[2024-10-09] MEDS: DIVALPROEX DELAY RELEASE 250 MG TABEC PO STA (05:17)
[2024-10-09] MEDS: LORazepam 1 MG TAB SL STA (05:17)
[2024-10-09] MEDS: CARBIDOPA/LEVODOPA 50/200MG EXT REL TAB PO STA (05:17)
[2024-10-09] MEDS: levETIRAcetam 500 MG TAB PO STA (05:17)
--- NOTE | 2024-10-09 05:59 | History & Physical Report ---
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 Patient works in [employer]. Around 12 midnight at work he seems to have passed out and had a possible seizures. Patient does not remember anything. Patient says he does not remember anything from 12 midnight -1 30 a.m. when he woke up in the ER. Patient has tremors in his extremities. Patient states he has Parkinson's and takes carbidopa levodopa. Denies any headache. No fevers. No runny nose or sore throat. No cough. Appetite is okay. Denies chest pain or shortness of breath. No nausea. No abdominal pain. Normal bowel improvements. Currently hemodynamics are okay. Patient lives alone. Says his family is in [place]. States he takes his medications at 3 AM and 3 PM because of his work. Seizure-like activity Patient has history of seizures At work around midnight patient possibly had seizures possible syncope? 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 Patient works in [employer]. A round 12 midnight at work he seems to have passed out and had a possible seizures. Patient does not remember anything. Patient says he does not remember anything from 12 midnight -1 30 a.m. when he woke up in the ER. Patient has tremors in his extremities. Patient states he has Parkinson's and takes carbidopa levodopa. Denies any headache. No fevers. No runny nose or sore throat. No cough. Appetite is okay. Denies chest pain or shortness of breath. No nausea. No abdominal pain. Normal bowel improvements. Currently hemodynamics are okay. Patient lives alone. Says his family is in [place]. States he takes his medications at 3 AM and 3 PM because of his work. Past medical history. As mentioned above. Past surgical history. Colonoscopy. Reconstruction of the nose. Social history. Smoked average of 0.3 pack a day for 17 years. Alcohol rarely. No drug use. Family history. No family history on file Allergies Allergy/AdvReac Type Severity Reaction Status Date / Time mushroom Allergy Unknown "ENDED UP Verified 10/09/24 04:03 IN HOSPITAL" Home Medications Medication Instructions Recorded Confirmed Type divalproex 250 mg tablet,delayed 250 mg PO UD 04/21/19 10/09/24 History release divalproex 500 mg tablet,delayed 1,000 mg PO UD 04/21/19 10/09/24 History release levetiracetam 250 mg tablet 500 mg PO UD 04/21/19 10/09/24 History wiwwtvx-utzbuqoblfkij-epsrpqrc 250 1 tab PO BID PRN Headache 06/04/19 10/09/24 History mg-250 mg-65 mg tablet (Excedrin Migraine) ibuprofen 200 mg tablet 200 mg PO Q6H PRN Pain 06/04/19 10/09/24 History carbidopa ER 50 mg-levodopa 200 mg 1 tab PO UD 10/09/24 10/09/24 History tablet,extended release Past Med/Surg History Problem List (Updated 10/09/24 @ 04:25 by Hemanth Zhu MD) Seizure-like activity (Acute) Grand mal seizure (Acute) Seizure (Acute) Medical History Parkinson disease Epilepsy Surgical History No significant past surgical history Family History Other Lung cancer Social History Smoking Status: Current every day smoker Tobacco Type: Cigarettes Cigarettes Per Day: 5-6; Second Hand Exposure: No; Do You Dip or Chew Tobacco: No; Tobacco Cessation Education Requested by Patient: No Hx Alcohol Use: Yes Alcohol type: beer Hx Substance Use: No Preferred Language: Belarusian Communication Ability: Effective [employer] Required: No Beliefs That Will Affect Care: None marital status: Single Current Living Situation: Alone current occupational status: employed Feels Safe at Home: Yes Safety Concerns: Feels Safe At This Time Assistive Devices: Brace/Splint/Immobilizer Assistive Devices Comment: back brace Review of Systems Review of Systems: All systems reviewed & are unremarkable except as noted in HPI & below Physical Exam Physical Exam: General- Not in distress. Tremors of extremities more in upper extremity Head- atraumatic Eyes- PERRL. ENT- oropharynx clear Neck- supple, no JVD. Lungs- clear to auscultation no wheezing or crackles Heart- regular rate and rhythm; no murmur, no gallop. Abdomen- normal bowel sounds, soft, nontender, no distension Extremities- no pretibial edema, no erythema seen Neuro- alert, oriented PERRL, having tremors, no facial palsy; no dysarthria; motor 5/5 bilaterally; Results & Data Results & Data Vital Signs (Past 12 Hours) Vital Signs Temp Pulse Pulse Resp BP BP Pulse Ox 10/09/24 04:53 74 18 152/65 H 96 10/09/24 03:00 72 18 117/67 93 10/09/24 02:00 80 20 131/97 94 10/09/24 01:20 80 10/09/24 01:05 36.5 C 85 24 144/85 H 96 O2 Del Method 10/09/24 04:53 Room Air 10/09/24 03:00 Room Air 10/09/24 02:00 Room Air 10/09/24 01:20 10/09/24 01:05 Room Air Diagnostic Findings Laboratory Results WBC 8.84 K/ul (4.8-10.8) 10/09/24 01:16 RBC 4.58 M/uL (4.70-6.10) L 10/09/24 01:16 Hgb 13.9 g/dl (14.0-18.0) L 10/09/24 01:16 Hct 42.0 % (42.0-52.0) 10/09/24 01:16 MCV 91.7 fL (80.0-100.0) 10/09/24 01:16 MCH 30.3 pg (25.0-34.0) 10/09/24 01:16 MCHC 33.1 g/dL (32.0-36.0) 10/09/24 01:16 RDW Std Deviation 44.5 fL (36.4-46.3) 10/09/24 01:16 RDW Coeff of Alley 13.2 % (11.5-14.5) 10/09/24 01:16 Plt Count 189 K/uL (130-400) 10/09/24 01:16 MPV 10.0 fL (9.4-12.4) 10/09/24 01:16 Immature Gran % (Auto) 0.2 % 10/09/24 01:16 Neut % (Auto) 71.6 % 10/09/24 01:16 Lymph % (Auto) 21.0 % 10/09/24 01:16 [place] % (Auto) 6.6 % 10/09/24 01:16 Eos % (Auto) 0.1 % 10/09/24 01:16 Baso % (Auto) 0.5 % 10/09/24 01:16 Neut # (Auto) 6.33 K/uL (1.40-6.50) 10/09/24 01:16 Lymph # (Auto) 1.86 K/uL (1.20-3.40) 10/09/24 01:16 [place] # (Auto) 0.58 K/uL (0.11-0.59) 10/09/24 01:16 Eos # (Auto) 0.01 K/uL (0.00-0.50) 10/09/24 01:16 Baso # (Auto) 0.04 K/uL (0.00-0.20) 10/09/24 01:16 Immature Gran # (Auto) 0.02 K/uL (0.01-0.20) 10/09/24 01:16 PT 10.9 Seconds (9.0-12.0) 10/09/24 01:16 INR 1.0 (0.9-1.1) 10/09/24 01:16 APTT 24 Seconds (21-31) 10/09/24 01:16 PTT Ratio 0.9 10/09/24 01:16 Sodium 133 mmol/L (136-145) L 10/09/24 01:16 Potassium 4.7 mmol/L (3.5-5.1) 10/09/24 01:16 Chloride 100 mmol/L (98-107) 10/09/24 01:16 Carbon Dioxide 27 mmol/L (21-32) 10/09/24 01:16 Anion Gap 6 (3-11) 10/09/24 01:16 BUN 27 mg/dl (6-23) H 10/09/24 01:16 Creatinine 0.59 mg/dl (0.6-1.4) L 10/09/24 01:16 Est Cr Clr Drug Dosing 139.5 ml/min 10/09/24 01:16 eGFR 110.39 10/09/24 01:16 BUN/Creatinine Ratio 45.8 (10-20) H 10/09/24 01:16 Glucose 86 mg/dl (70-99(Fasting)) 10/09/24 01:16 Lactate 1.5 mmol/L (0.4-2.0) 10/09/24 01:16 Calcium 9.4 mg/dl (8.6-10.3) 10/09/24 01:16 Magnesium 1.8 mg/dl (1.7-2.4) 10/09/24 01:16 Total Bilirubin 0.3 mg/dl (0.2-1.0) 10/09/24 01:16 AST 16 U/L (13-39) 10/09/24 01:16 ALT 11 U/L (7-52) 10/09/24 01:16 Alkaline Phosphatase 44 U/L (34-104) 10/09/24 01:16 Ammonia 49.0 umol/L (18-72) 10/09/24 01:16 Total Protein 6.8 gm/dl (6.0-8.3) 10/09/24 01:16 Albumin 4.2 gm/dl (3.4-5.0) 10/09/24 01:16 Globulin 2.6 gm/dl (2.5-4.0) 10/09/24 01:16 Albumin/Globulin Ratio 1.6 (0.9-2) 10/09/24 01:16 Prolactin 20.85 ng/ml 10/09/24 01:16 Salicylates < 3.0 mg/dl (3.0-30) L 10/09/24 01:16 Acetaminophen < 3 ug/ml (10-30) L 10/09/24 01:16 Ethyl Alcohol mg/dL < 10.0 mg/dl (<10.0) 10/09/24 01:[address] 10/09/24 01:05 EXAM: CT head/brain wo con CLINICAL HISTORY: Seizure, hx of parkinsons. TECHNIQUE: Axial non-contrast CT scan of the brain was performed from the skull base to the high parietal region. One of the following dose reduction techniques were utilized for this exam: Automated exposure control, adjustment of the mA and/or kV according to patient size, use of iterative reconstruction. CTDI: 75.22 mGy. DLP: 859.95 mGy.cm. COMPARISON: 07/17/2017 CT. FINDINGS: Brain Parenchyma: Normal attenuation of the cerebral hemispheres, cerebellum, and brainstem. Age-related parenchymal volume loss with capacious CSF spaces. No acute brain hemorrhage or major territorial infarct. Ventricular System: No evidence of hydrocephalus or ventricular enlargement. Subarachnoid Spaces: No evidence of subarachnoid hemorrhage or extra-axial fluid collections. Cerebellum and Brainstem: No masses, lesions, or areas of abnormal densities. Orbits: No evidence of orbital masses or abnormal densities. Sinuses: Mucosal thickening of both maxillary antra with air-fluid leveling noted on the left. Minimal opacification of the ethmoid air cells. Mastoid Air Cells: Unchanged opacification and hypo-pneumatization of the mastoid air cells. Skull: Unchanged left nasal bone deformity/old fracture. Unchanged right occipital bone posterior. No acute displaced fractures. IMPRESSION: 1. No acute brain hemorrhage or major territorial infarct. 2. Newly appreciated mucosal thickening/partial opacification of the mastoid air cells and minimal opacification of the ethmoid sinus. Clinical correlation is advised to assess for sinusitis. 3. Unchanged hypopneumatization and partial opacification of the mastoid air cells. 4. No other significant interval change. Electronically signed by Gianna Cavanaugh 10-09-2024 02:56 AM ECG Additional Comments: ECG. Normal sinus rhythm rate of 75. QTc 413. Code Status & VTE Plan VTE Prophylaxis Plan VTE Prophylaxis will be ordered: Yes
--- OUTSIDE RECORDS SUMMARY | 2024-10-09 06:04 | External Medical Summary | Summary of Care ---
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 Active Acetaminophen 500 MG Oral Tablet (TYLENOL) Take 1 Tablet by mouth in the morning and 1 Tablet before bedtime. Active Divalproex Sodium 250 MG Oral Tablet Delayed Release (Flash TEJEDA)Indications:Gener alized nonconvulsive epilepsy without intractable epilepsy (HCC) Take 1 Tablet by mouth in the morning and 1 Tablet before bedtime. 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 180 Tablet 3 04/26/2024 Active Divalproex Sodium 500 MG Oral Tablet Delayed Release (Flash TEJEDA)Indications:Gener alized nonconvulsive epilepsy without intractable epilepsy (HCC),Myoclonus TAKE 2 TABLETS BY MOUTH TWICE A DAY 360 Tablet 3 05/26/2024 Active Divalproex Sodium 500 MG Oral Tablet Delayed Release (Flash TEJEDA)Indications:Gener alized nonconvulsive epilepsy without intractable epilepsy (HCC),Myoclonus TAKE 2 TABLETS BY MOUTH TWICE A DAY 360 Tablet 3 06/04/2023 4 Discontinued documented as of this encounter (statuses as of 05/26/2024) Active Problems Problem Noted Date Diagnosed Date Mixed action and resting tremor 01/20/2023 Migraine variant 03/16/2019 Tobacco abuse 11/04/2017 Generalized nonconvulsive ep ilepsy without intractable epilepsy 08/07/2016 Breakthrough seizure 08/07/2016 Cephalalgia 05/30/2015 No advance directive on file 03/19/2005 Overview: No, Advance Directive brochure offered , patient declined. 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 Convulsions documented as of this encounter (statuses as of 05/26/2024) Resolved Problems Problem Noted Date Diagnosed Date Resolved Date Headache 07/23/2004 05/30/2015 documented as of this encounter (statuses as of 05/26/2024) Immunizations Name Administration Dates Next Due Pneumococcal Conjugate Vacc, 13 Valent (Prevnar) 05/30/2015 Pneumococcal Polysaccharide PPV23 (Pneumovax) 07/25/2010 Seasonal Influenza Vac., MDV , IM, 0.5 mL (Fluzone) 05/25/2014,10/14/2012,07/25/2010 05/16/2013 Seasonal Influenza, PF, 6 M & above, IM , (FluLaval or Fluzone) 08/12/2023,07/16/2022,06/26/2021,11/0 12/2019,05/04/2018,05/06/2017 Seasonal Influenza, Ghadaiva nehal, No Preserve, IM 05/10/2016,05/30/2015 TDAP (age 10 and older)(Boostrix) 06/26/2021 TDAP, Age 7 and older, IM (Adacel) 06/13/2010 documented as of this encounter Social History Tobacco Use Types Packs/Day Years Used Date Smoking Tobacco: Every Day Cigarettes 0.3 17 Smokeless Tobacco: Never Comments:believes smoking he lps epilepsy Alcohol Use Standard Drinks/Week Comments Yes 0 (1 standard drink = 0.6 oz pur e alcohol) very rarely PHQ-2 Answer Date Recorded PHQ-2 Score 0 06/16/2020 Utilities Answer Date Recorded Do you have trouble paying y our heating, water, or electric bill? (Adult - for ages 18 years and over) Not on file 01/27/2024 Is your family able to pay t he heat, water, or electric bill? (Household - for ages 0-17 years) Not on file 01/27/2024 Does your family have access to good internet? (Household - for ages 0-17 years) Not on file 01/27/2024 Social Connections Answer Date Recorded How often do you feel lonely or isolated from those around you? (Adult - for ages 18 years and over) Not on file 01/27/2024 Sex and Gender Information Value Date Recorded Sex Assigned at Not on file Gender Identity Not on file Sexual Orientation Not on file Job Start Date Occupation Industry Not on file Not on file Not on file documented as of this encounter Miscellaneous Notes * Telephone Encounter - Charlene Bains DO - 05/26/2024 4:12 PM EDTSigned Prescriptions: Disp Refills Divalproex Sodium 500 MG Oral Tablet Delay*360 Ta*3 Sig: TAKE 2 TABLETS BY MOUTH TWICE A DAY Authorizing Provider: CHARLENE BAINS * Telephone Encounter - Brianna Fong CMA - 05/26/2024 3:27 PM EDTPending Prescriptions: Disp Refills Divalproex Sodium 500 MG Oral Tablet Delay*360 Ta*3 Sig: TAKE 2 TABLETS BY MOUTH TWICE A DAY * Telephone Encounter - Brianna Fong CMA - 05/26/2024 3:26 PM EDT Did you pend patient's preferred pharmacy and medication before forwarding?yes Pharmacy: [id number] Pending Prescriptions: Disp Refills Divalproex Sodium 500 MG Oral Tablet Essie*360 Ta*3 Sig: TAKE 2 TABLETS BY MOUTH TWICE A DAY Last Visit: 08/12/2023 (in office), Visit date not found (telemedicine) Next Visit: Visit date not found If no future appointments scheduled, and last appointment is greater than a year ago, please schedule patient for a follow-up appointment Last date the medication was ordered: 06/04/23 Urine Drug Screen:No results found for this or any previous visit. Patient Phone Numbers [employer] [phone] Labs: Lab Results Component Value Date/Time CREAT 0.7 08/12/2023 12:15 PM CREAT 0.8 03/31/2019 10:35 AM POTASSIUM 4.9 08/12/2023 12:15 PM POTASSIUM 4.5 03/31/2019 10:35 AM TSH 1.45 08/12/2023 12:15 PM TSH 0.50 04/09/2006 04:47 PM LDL 87 08/12/2023 12:15 PM LDL 68 05/04/2018 12:29 PM LDL NOT APPLICABLE 05/04/2018 12:29 PM ALT 18 08/12/2023 12:15 PM ALT 23 03/31/2019 10:35 AM HGBA1C 5.2 03/25/2016 10:25 AM * Telephone Encounter - Brandan Aranda - 05/26/2024 4:08 AM EDTPending Prescriptions: Disp Refills Divalproex Sodium 500 MG Oral Tablet Delay*360 Ta*3 Sig: TAKE 2TABLETS BY MOUTH TWICE A DAY documented in this encounter Plan of Treatment Upcoming Encounters Date Type Department Care Team (Late st Contact Info) Description 10/26/2024 1:40 PM EDT Office Visit Neurology [facility] [address] [place] [address] Lazaro Garcia MD [address] [place] [address] Scheduled Procedures Name Priority Associated Diagnoses Date/Ti me COLONOSCOPY FLEXIBLE PROXIMA L DIAGNOSTIC Recall Encounter for screening colonoscopy Health Maintenance Due Date Last Done Comments Cologuard 02/02/2008 Fecal Occult Blood Test 02/02/2008 Sigmoidoscopy 02/02/2008 Zoster Vaccines (1 of 2) 2013 Depression Screening 06/16/2021 06/16/2020 COVID-19 Vaccine (1 - season) 2024 Influenza Vaccine (FLU shot) (#1) 2024 08/12/2023, 07/16/2022, 06/26/2021, Additional history exists Colonoscopy 08/02/2025 08/02/2015, 08/02/2015 Colorectal Cancer Screening 08/02/2025 Pneumococcal Vaccine: Pediatrics (0 to 5 Years) and At-Risk Patients (6 to 64 Years) (3 of 3 - PPSV23 or PCV20) 02/02/2028 05/30/2015, 07/25/2010 Lipid Panel 08/12/2028 08/12/2023, 04/12, 04/14/2013, Additional history exists DTap/Tdap Vaccines (3 - Td or Tdap) 06/26/2031 06/26/2021, 06/13/2010 HPV (Gardasil) Vaccine Aged Out No lo nger eligible based on patient's age to complete this topic Hepatitis B Vaccine Aged Out No longe r eligible based on patient's age to complete this topic MENINGOCOCCAL (MENACTRA/MENVEO) Aged Out No longer eligible based on patient's age to complete this topic documented as of this encounter Medical Devices Not on filedocumented as of this encounter Visit Diagnoses Diagnosis 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
--- OUTSIDE RECORDS SUMMARY | 2024-10-09 06:04 | External Medical Summary | Summary of Care ---
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 Active Acetaminophen 500 MG Oral Tablet (TYLENOL) Take 1 Tablet by mouth in the morning and 1 Tablet before bedtime. 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 180 Tablet 3 04/26/20 24 Active Divalproex Sodium 500 MG Oral Tablet Delayed Release (Flash TEJEDA)Indications:Gen eralized nonconvulsive epilepsy without intractable epilepsy (HCC),Myoclonus TAKE 2 TABLETS BY MOUTH TWICE A DAY 360 Tablet 3 05/26/20 24 Active Divalproex Sodium 250 MG Oral Tablet Delayed Release (Flash TEJEDA)Indications:Gen eralized nonconvulsive epilepsy without intractable epilepsy (HCC) TAKE 1 TABLET BY MOUTH IN THE MORNING AND BEFORE BEDTIME 180 Tablet 3 07/28/20 24 Active Divalproex Sodium 250 MG Oral Tablet Delayed Release (Flash TEJEDA)Indications:Gen eralized nonconvulsive epilepsy without intractable epilepsy (HCC) Take 1 Tablet by mouth in the morning and 1 Tablet before bedtime. 180 Tablet 3 08/12/19 24 024 Discontinued documented as of this encounter (statuses as of 07/28/2024) Active Problems Problem Noted Date Diagnosed Date Mixed action and resting tremor 01/20/2023 Migraine variant 03/16/2019 Tobacco abuse 11/04/2017 Generalized nonconvulsive ep ilepsy without intractable epilepsy 08/07/2016 Breakthrough seizure 08/07/2016 Cephalalgia 05/30/2015 No advance directive on file 03/19/2005 Overview (03/19/2005): No, Advance Directive brochure offered , patient declined. 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 Convulsions documented as of this encounter (statuses as of 07/28/2024) Resolved Problems Problem Noted Date Diagnosed Date Resolved Date Headache 07/23/2004 05/30/2015 documented as of this encounter (statuses as of 07/28/2024) Immunizations Name Administration Dates Next Due Pneumococcal Conjugate Vacc, 13 Valent (Prevnar) 05/30/2015 Pneumococcal Polysaccharide PPV23 (Pneumovax) 07/25/2010 Seasonal Influenza Vac., MDV , IM, 0.5 mL (Fluzone) 05/25/2014,10/14/2012,07/25/2010 05/16/2013 Seasonal Influenza, PF, 6 M & above, IM , (FluLaval or Fluzone) 08/12/2023,07/16/2022,06/26/2021,11/0 12/2019,05/04/2018,05/06/2017 Seasonal Influenza, Domo calvert, No Preserve, IM 05/10/2016,05/30/2015 TDAP (age 10 [...] Answer Date Recorded PHQ-2 Score 0 06/16/2020 Sex and Gender Information Value Date Recorded Sex Assigned at Not on file Legal Sex Male 5:36 AM EST Gender Identity Not on file Sexual Orientation Not on file 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 Not on file Not on file documented as of this encounter Miscellaneous Notes * Telephone Encounter - Charlene Bains DO - 07/28/2024 4:48 PM ESTSigned Prescriptions: Disp Refills Divalproex Sodium 250 MG Oral Tablet Delay*180 Ta*3 Sig: TAKE 1 TABLET BY MOUTH IN THE MORNING AND BEFORE BEDTIME Authorizing Provider: CHARLENE BAINS * Telephone Encounter - Nasreen Nathan LPN - 07/28/2024 2:42 PM ESTPending Prescriptions: Disp Refills Divalproex Sodium 250 MG Oral Tablet Delay*180 Ta*3 Sig: TAKE 1 TABLET BY MOUTH IN THE MORNING AND BEFORE BEDTIME * Telephone Encounter - Nasreen Nathan LPN - 07/28/2024 2:41 PM EST Did you pend patient's preferred pharmacy and medication before forwarding?yes Pharmacy: [id number] Pending Prescriptions: Disp Refills Divalproex Sodium 250 MG Oral Tablet Essie*180 Ta*3 Sig: TAKE 1 TABLET BY MOUTH IN THE MORNING AND BEFORE BEDTIME Last Visit: 08/12/2023 (in office), Visit date not found (telemedicine) Next Visit: Visit date not found If no future appointments scheduled, and last appointment is greater than a year ago, please schedule patient for a follow-up appointment Last date the medication was ordered: 08/12/23 Is this request for a controlled substance?No Urine Drug Screen:No results found for this or any previous visit. Patient Phone Numbers Labs: Lab Results Component Value Date/Time CREAT [...] * Telephone Encounter - Brandan Aranda - 07/28/2024 2:01 PM ESTPending Prescriptions: Disp Refills Divalproex Sodium 250 MG Oral Tablet Delay*180 Ta*3 Sig: TAKE 1TABLET BY MOUTH IN THE MORNING AND BEFORE BEDTIME documented in this encounter Plan of Treatment Upcoming Encounters Date Type Department Care Team (Late st Contact Info) Description 10/26/2024 1:40 PM EDT Office Visit Neurology [facility] [place] [address] [place] [address] Lazaro Garcia MD [address] [place] [address] Scheduled Procedures Name Priority Associated Diagnoses Date/Ti me COLONOSCOPY FLEXIBLE PROXIMA L DIAGNOSTIC Recall Encounter for screening colonoscopy Health Maintenance Due Date Last Done Comments Cologuard 02/02/2008 Fecal Occult Blood Test 02/02/2008 Sigmoidoscopy 02/02/2008 Zoster Vaccines (1 of 2) 2013 Depression Screening 06/16/2021 06/16/2020 COVID-19 Vaccine ( season) 2024 Influenza Vaccine (FLU shot) (#1) [...] nonconvulsive epilepsy without mention of intractable epilepsy documented in this encounter Care Teams Orthotic/Prosthetic Clinician Relationship Specialty Start Date End Date Charlene Bains DO [address] [place] [address] PCP - General Family Medicine 05/10/16 documented as of this encounter
--- OUTSIDE RECORDS SUMMARY | 2024-10-09 06:04 | External Medical Summary | Summary of Care ---
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 Name Role Phone Faraz Downey DO Primary Care Provider [phone] Reason for Visit * Reason Comments NEW PATIENT Parkinsons * Evaluate & Treat - Unlimited Visits (Within 10 days (routine)) - Pending Review Specialty Diagnoses / Procedures Referred By Radhika holland Referred To Contact Neurology Diagnoses Parkinson's disease without dyskinesia or fluctuating manifestations (HCC) Lisa Rose PA-C [address] [facility] [place] [address] Referral ID Status Reason Start Date Expiration Date Visits Requested Visits Authorized [id number] Pending Review Specialty Services Required 12/16/[phone] Encounter Details Date Type Department Care Team (Latest Contact Info) Description 04/26/2024 1:00 PM EDT Office Visit Neurology [facility] [address] [facility] [place] [address] Lazaro Garcia MD [address] [place] [address] Parkinson's disease without dyskinesia or fluctuating manifestations (HCC)*; 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 Active Acetaminophen 500 MG Oral Tablet (TYLENOL) Take 1 Tablet by mouth in the morning and 1 Tablet before bedtime. Active Divalproex Sodium 500 MG Oral Tablet Delayed Release (Jihanakote )Indications:Gener alized nonconvulsive epilepsy without intractable epilepsy (HCC),Myoclonus TAKE 2 TABLETS BY MOUTH TWICE A DAY 360 Tablet 3 06/04/2023 Active Divalproex Sodium 250 MG Oral Tablet [...] at 3pm. 180 Tablet 3 04/26/2024 Active Carbidopa-Levodopa 25-100 MG Oral Tablet (Sinemet) TAKE 1 TABLET BY MOUTH THREE TIMES A DAY 90 Tablet 5 03/12/2024 4 Discontinue d(Medicatio n/Dose Changed) documented as of this encounter (statuses as of 04/26/2024) Active Problems Problem Noted Date Diagnosed Date Mixed action and resting tremor 01/20/2023 Migraine variant 03/16/2019 Tobacco abuse 11/04/2017 Generalized nonconvulsive ep ilepsy without intractable epilepsy 08/07/2016 Breakthrough seizure 08/07/2016 Cephalalgia 05/30/2015 No advance directive on file 03/19/2005 Overview: No, Advance Directive brochure offered , patient declined. 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 Convulsions documented as of this encounter (statuses as of 04/26/2024) Resolved Problems Problem Noted Date Diagnosed Date Resolved Date Headache 07/23/2004 05/30/2015 documented as of this encounter (statuses as of 04/26/2024) Immunizations Name Administration Dates Next Due Pneumococcal Conjugate Vacc, 13 Valent (Prevnar) 05/30/2015 Pneumococcal Polysaccharide PPV23 (Pneumovax) 07/25/2010 Seasonal Influenza, PF, 6 M & above, IM , (FluLaval or Fluzone) 08/12/2023,07/16/2022,06/26/2021,1112/2019,05/04/2018,05/06/2017 Seasonal Influenza, Quadriva lent, No Preserve, IM 05/10/2016,05/30/2015 Seasonal Influenza, Trivalen t, (IIV3), with Preserv, (Fluzone) 05/25/2014,10/14/2012,07/25/2010 05/16/2013 TDAP (age 10 and older)(Boostrix) 06/26/2021 TDAP, [...] on file documented as of this encounter Last Filed Vital Signs Vital Sign Reading Time Taken Comments Blood Pressure 118/68 04/26/2024 12:58 PM EDT Pulse 86 04/26/2024 12:58 PM EDT Temperature 35.4 C (95.8 F) 04/26/2024 1 2:58 PM EDT Respiratory Rate - - Oxygen Saturation 97% 04/26/2024 12: 58 PM EDT Inhaled Oxygen Concentration - - Weight 68.8 kg (151 lb 11.2 oz) 024 12:58 PM EDT Height - - Body Mass Index 20.64 08/12/2023 11:37 AM EST documented in this encounter Progress Notes * Lazaro Garcia MD - 04/26/2024 12:40 PM EDT 04/26/2024 12:40 PM Edis Crockett 59 year old male REF: LISA ROSE [address] [place] [address] (office) [phone] (fax) Asked by Faraz Downey DO to render opinion regarding follow-up management of Parkinson's CC: No chief complaint on file. 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 His DaTSCAN showed asymmetric radiotracer uptake with more truncation on the right than the left, nevertheless he has had symptoms in his right hand with a resting tremor and decreased arm swing. Henoticed symptoms about a year ago. He was started on low-dose carbidopa levodopa 25/100 3 times a day. He was levodopa responsive. He is also on Keppra 500 milligrams twice a day and 750 milligrams of Depakote twice a day. He has not had seizures for a while. He feel that Carbidopa/Levodopa was working but not completely. He took Dilantin for years. 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 He was not always taking it on an empty stomach. His first dose of C/L is at 4PM (he takes it on an empty stomach). He takes the second dose at 2:30AM. He was taking 2 tablets at 4PM. He has no hallucinations. 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 juvenile myoclonic seizures [G25.3] 09/08/2002 Convulsions (HCC) [R56.9] MEDICATIONS: Current Outpatient Medications Medication Sig Dispense Refill ibuprofen (MOTRIN) 200 MG Tablet Take 2 Tablets by mouth in the morning and 2 Tablets before bedtime. Acetaminophen 500 MG Oral Tablet (TYLENOL) Take 1 Tablet by mouth in the morning and 1 Tablet before bedtime. Divalproex Sodium 500 MG Oral Tablet Delayed Release (Depakote DR) TAKE 2 TABLETS BY MOUTH TWICE A DAY 360 Tablet 3 Divalproex Sodium 250 MG Oral Tablet Delayed Release (Depakote DR) Take 1 Tablet by mouth in the morning and 1 Tablet before bedtime. 180 Tablet 3 levETIRAcetam 250 MG Oral Tablet (Keppra) TAKE 2 TABLETS BY MOUTH IN THE MORNING AND BEFORE [id number] Tablet 11 Carbidopa-Levodopa 25-100 MG Oral Tablet (Sinemet) TAKE 1 TABLET BY MOUTH THREE TIMES A DAY 90 Tablet 5 No current facility-administered medications for this visit. 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 Occupation: [employer] Comment: the [employer] Tobacco Use Smoking status: Every Day Current packs/day: 0.25 Average packs/day: 0.3 packs/day for 17.0 years (4.3 ttl pk-yrs) Types: Cigarettes Smokeless tobacco: Never Tobacco comments: believes smoking helps epilepsy Vaping Use Vaping status: Never Used Substance and Sexual Activity Alcohol use: Yes Comment: very rarely Drug use: No Sexual activity: Not Currently Other Topics Concern Service No Blood Transfusions No Caffeine Concern No Occupational Exposure No Hobby Hazards No Sleep Concern No Stress Concern No Weight Concern No Special Diet No Back Care No Exercise Yes Comment: walks Bike Helmet Not Asked Seat Belt Not Asked Self-Exams Not Asked Social History Narrative born in [place], [place] lives in [facility] since 01/1998 Social Determinants of Health Financial Resource Strain: Not on file Food Insecurity: Not on file Transportation Needs: Not on file Social Connections: Unknown (01/27/2024) Social Connections How often do you feel lonely or isolated from those around you? 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 Family Status Relation Status Mo Alive lives out the area in [place], raised by Beverly, a stepmother Fa at age 73 former heavy smoker, diabetes diagnosed at age 64, lives in [facility] Alive asthma, medical discharge from [facility] Alive Bro Alive diabetes at age 48, regional truck driver Sis Alive Sis MVA PGFA at age 85 natural causes, Parkinsons MGFA at age 73 hemolytic anemia MGMA at age 78s natural causes PGMA at age 78 cancer of colon REVIEW OF SYSTEMS: The patient denies new cardiac, lung, kidney, liver, skin, thyroid, bladder, or digestive problems.The patient also denies acute changes in hearing or vision. Otherwise, all other systems are negative or as noted above. There were no vitals taken for this visit. The patient is a 59 year old male who is well developed and appears to be their stated age. NEUROLOGIC EXAMINATION: He has mild bradykinesia on the right and resting tremor on the same side which increases in amplitude when he walks. Mild cogwheeling rigidity. No hypophonia or hypomimia. IMPRESSION: The patient has well-controlled tremor dominant Parkinson's which has responded to immediate release carbidopa levodopa. He was not always taking the medication on an empty stomach and not fully adhering to the dosing. He would benefit from a slow release twice a day dosing. RECOMMENDATIONS: I will switch the patient to carbidopa/levodopa 50/200 twice a day. He will stay on Depakote 750 milligrams twice a day and Keppra 500 milligrams twice a day. He can follow up with me again in 6 months. Thank-you for letting me participate in the care of this patient. Lazaro Garcia MD Neurology [address] [facility] [address] Please send copy to requesting physician, Faraz Downey DO documented in this encounter Nursing Notes * Palmira Iniguez LPN - 04/26/2024 12:58 PM EDT Chief Complaint Patient presents with NEW PATIENT Parkinsons documented in this encounter Plan of Treatment Upcoming Encounters Date Type Department Care Team (Late st Contact Info) Description 10/26/2024 1:40 PM EDT Office Visit Neurology [facility] [address] [facility] [place], [place] [address] Lazaro Garcia MD [address] [place] [address] Scheduled Procedures Name Priority Associated Diagnoses Date/Ti me COLONOSCOPY FLEXIBLE PROXIMA L DIAGNOSTIC Recall Encounter for screening colonoscopy Health Maintenance Due Date Last Done Comments Cologuard 02/02/2008 Fecal Occult Blood Test 02/02/2008 Sigmoidoscopy 02/02/2008 Zoster Vaccines (1 of 2) 2013 Depression Screening 06/16/2021 06/16/2020 COVID-19 Vaccine ( - 2023- season) 2024 Influenza Vaccine (FLU shot) (#1) [...] as of this encounter Visit Diagnoses Diagnosis Parkinson's disease without dyskinesia or fluctuating manifestations (HCC)- Primary 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
--- OUTSIDE RECORDS SUMMARY | 2024-10-09 06:04 | External Medical Summary | Summary of Care ---
Author Name Unknown Organization [facility] Address [address] [place] [facility] [place] [address] Phone [phone] Care Team Providers Care Solutions Engineer Name Role Phone Faraz Downey DO Primary Care Provider [phone] Reason for Visit * Reason Comments Return Neuro Encounter Details Date Type Department Care Team (Late st Contact Info) Description 08/12/2024 1:30 PM EST Office Visit Neurology [facility] [place] [address] [facility] [place] [address] Sera Gonzalez PA-C [address] [facility] [place] [id number] Parkinson's disease without dyskinesia or fluctuating manifestations (HCC)* Allergies Active Allergy Reactions Criticality Noted Date Comments Food (See Comments) Other (Please comment) 07/11 mushrooms documented as of this encounter (statuses as of 08/12/2024) Medications ibuprofen (MOTRIN) 200 MG Tablet Take 2 Tablets by mouth in the morning and 2 Tablets before bedtime. Active Acetaminophen 500 MG Oral Tablet (TYLENOL) Take 1 Tablet by mouth in the morning and 1 Tablet before bedtime. 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 180 Tablet 3 4 Active Divalproex Sodium 500 MG Oral Tablet Delayed Release (Flash TO)Indications:Gene ralized nonconvulsive epilepsy without intractable epilepsy (HCC),Myoclonus TAKE 2 TABLETS BY MOUTH TWICE A DAY 360 Tablet 3 4 Active Divalproex Sodium 250 MG Oral Tablet Delayed Release (Flash TO)Indications:Gene ralized nonconvulsive epilepsy without intractable epilepsy (HCC) TAKE 1 TABLET BY MOUTH IN THE MORNING AND BEFORE BEDTIME 180 Tablet 3 4 Active documented as of this encounter (statuses as of 08/12/2024) Active Problems Problem Noted Date Diagnosed Date Mixed action and resting tremor 01/20/2023 Migraine variant 03/16/2019 Tobacco abuse 11/04/2017 Generalized nonconvulsive ep ilepsy without intractable epilepsy 08/07/2016 Breakthrough seizure 08/07/2016 Cephalalgia 05/30/2015 No advance directive on file 03/19/2005 Overview (03/19/2005): No, Advance Directive brochure offered , patient declined. 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 Convulsions documented as of this encounter (statuses as of 08/12/2024) Resolved Problems Problem Noted Date Diagnosed Date Resolved Date Headache 07/23/2004 05/30/2015 documented as of this encounter (statuses as of 08/12/2024) Immunizations Name Administration Dates Next Due Pneumococcal Conjugate Vacc, 13 Valent (Prevnar) 05/30/2015 Pneumococcal Polysaccharide PPV23 (Pneumovax) 07/25/2010 Seasonal Influenza Vac., MDV , IM, 0.5 mL (Fluzone) 05/25/2014,10/14/2012,07/25/2010 05/16/2013 Seasonal Influenza, PF, 6 M & above, IM , (FluLaval or Fluzone) 08/12/2023,07/16/2022,06/26/2021,11/0 12/2019,05/04/2018,05/06/2017 Seasonal Influenza, Quadriva lent, No Preserve, IM 05/10/2016,05/30/2015 TDAP (age 10 [...] file Not on file Not on file 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 Not on file Not on file Not on file documented as of this encounter Last Filed Vital Signs Vital Sign Reading Time Taken Comments Blood Pressure 118/60 08/12/2024 1:32 PM EST Pulse 89 08/12/2024 1:32 PM EST Temperature 36.5 C (97.7 F) 08/12/2024 1:32 PM ES T Respiratory Rate 16 08/12/2024 1:32 PM EST Oxygen Saturation 96% 08/12/2024 1:32 PM EST Inhaled Oxygen Concentration - - Weight 69.6 kg (153 lb 8 oz) 08/12/2024 1:32 PM EST Height - - Body Mass Index 20.88 08/12/2023 11:37 AM EST documented in this encounter Progress Notes * Sera Gonzalez PA-C - 08/12/2024 1:30 PM EST HISTORY & PHYSICAL EXAMINATION - NEUROLOGY Name: Edis Crockett Date: 08/12/2024 Time: 7:37 AM Chief Complaint Patient presents with Return Neuro SUBJECTIVE: Edis Crockett is a 59 year old male who presents today for follow- up of primary generalized epilepsy (juvenile myoclonic epilepsy) and Parkinson's disease. He was last seen by Dr. Garcia on 04/26/24: "His DaTSCAN showed asymmetric radiotracer uptake withmore truncation on the right than the left, nevertheless he has had symptoms in his right hand witha resting tremor and decreased arm swing. He noticed symptoms about a year ago. He was started on low-dose carbidopa levodopa 25/100 3 times a day. He was levodopa responsive. He is also on Keppra 500 milligrams twice a day and 750 milligrams of Depakote twice a day. He has not had seizures for a while. The patient has well-controlled tremor dominant Parkinson's [...] follow up with me again in 6 months." Today states he made this appointment due to worsening tremor. He is taking carbidopa/levodopa regularly, around 2:00 p.m. and 2:00 a.m.. Has been trying to take it on an empty stomach. Tolerating well. Feels his tremor has worsened since the end of April. Otherwise feels okay. No change in gait. No recent falls. Denies lightheadedness. 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 Acetaminophen 500 MG Oral Tablet (TYLENOL) Take 1 Tablet by mouth in the morning and 1 Tablet before bedtime. levETIRAcetam 250 MG Oral Tablet (Keppra) TAKE 2 TABLETS BY MOUTH IN THE MORNING AND BEFORE [id number] Tablet 11 Carbidopa-Levodopa ER 50-200 MG Oral Tablet Extended Release (Sinemet CR) Take 1 tablet per mouth twice a day at 3AM and at 3pm. 180 Tablet 3 Divalproex Sodium 500 MG Oral Tablet Delayed Release (Depakote DR) TAKE 2 TABLETS BY MOUTH TWICE A DAY 360 Tablet 3 Divalproex Sodium 250 MG Oral Tablet Delayed Release (Depakote DR) TAKE 1 TABLET BY MOUTH IN THE MORNING AND BEFORE BEDTIME 180 Tablet 3 No current facility-administered medications for this visit. Family History: No family history on file. SOCIAL HISTORY: Social History Tobacco Use Smoking status: Every Day Current packs/day: 0.25 Average packs/day: 0.3 packs/day for 17.0 years (4.3 ttl pk-yrs) Types: Cigarettes Smokeless tobacco: Never Tobacco comments: believes smoking helps epilepsy Vaping Use Vaping status: Never Used Substance Use Topics Alcohol use: Yes Comment: very rarely Drug use: No REVIEW OF SYSTEMS: As above OBJECTIVE: Physical Examination: BP 118/60 | Pulse 89 | Temp 36.5 C (97.7 F) (Tympanic) | Resp 16 | Wt 69.6 kg (153 lb 8 oz) | SpO2 96% | BMI 20.88 kg/m | BSA 1.88 m General appearance: healthy, alert, no distress Physical Exam: Constitutional: Appearance normally developed,well nourished,no deformities,well groomed Head and face: No hypophonia or decreased blink normocephalic,atraumatic Respiratory: normal effort,clear to auscultation Cardiovascular: normal heart sounds and regular rhythm Psychiatric: normal judgement and insight,normal mood,normal affect NEUROLOGIC EXAMINATION: Mental Status Exam: alert,oriented to time, place, person,normal recent memory,normal remote memory,normal attention span,normal concentration,normal language,normal fund of knowledge Cranial Nerves: CN 5 - Facial sensation intact and equal bilaterally CN 7 - no facial assymetry CN 8 - hearing grossly intact Coordination: Prominent right hand resting tremor. Gait/station: Arises from chair easily, normal gait with good turn. Tremor increases with ambulation. Muscle exam: Mild cogwheel rigidity right wrist LABORATORY: Results for orders placed or performed in visit on 08/12/23 CBC Result Value Ref Range WBC 6.39 4.00 - 10.80 K/uL RBC 4.03 4.50 - 5.25 M/uL HGB 12.5 (L) 14.0 - 16.8 g/dL HCT 38.8 (L) 40.0 - 48.4 % MCV 96.3 82.0 - 99.5 fL MCH 31.0 27.0 - 34.0 pg MCHC 32.2 32.0 - 36.0 g/dL RDW 13.8 11.5 - 15.5 % PLT 170 140 - 400 K/uL MPV 9.9 6.6 - 11.1 fL Results for orders placed or performed in visit on 08/12/23 LIPID PANEL WITH DIRECT LDL IF TG IS HIGH Result Value Ref Range Triglycerides 66 <=174 mg/dL Cholesterol 166 <200 mg/dL HDL Cholesterol 66 >39 mg/dL Non-HDL Cholesterol 100 <=159 mg/dL LDL Cholesterol 87 <=129 mg/dL Lab Results Component Value Date/Time TSH - [facility] 1.45 08/12/2023 12:15 PM TSH - [facility] 0.50 04/09/2006 04:47 PM Review of prior Studies: IMPRESSION/PLAN: Edis Crockett is a 59 year old male who presents today for follow- up of primary generalized epilepsy (juvenile myoclonic epilepsy) and Parkinson's disease. Tremor predominant Parkinson's disease with worsening tremor. Currently taking carbidopa/levodopa 50/200 twice daily. Discussed medication options including adding Artane. Will send a message to Dr. Garcia for continuity of care and update patient with recommendations. Follow up as scheduled. I spent a total of 30 minutes on the date of service in preparation, delivery, and documentation of the care provided to Edis Crockett. Angela Pradhan MD available for direct consultation. Sera Gonzalez PA-C, Neurology [address] [address] 08/12/2024 2:10 PM documented in this encounter Nursing Notes * Fanny Marquis MED ASSIST - 08/12/2024 1:31 PM EST Chief Complaint Patient presents with Return Neuro documented in this encounter Plan of Treatment Upcoming Encounters Date Type Department Care Team (Late st Contact Info) Description 10/26/2024 1:40 PM EDT Office Visit Neurology [facility] [place] [address] [facility] [place] [address] Lazaro Garcia MD [address] [place] [address] Scheduled Procedures Name Priority Associated Diagnoses Date/Ti me COLONOSCOPY FLEXIBLE PROXIMA L DIAGNOSTIC Recall Encounter for screening colonoscopy Health Maintenance Due Date Last Done Comments Cologuard 02/02/2008 Fecal Occult Blood Test 02/02/2008 Sigmoidoscopy 02/02/2008 Zoster Vaccines (1 of 2) 2013 Pneumococcal Vaccine: 50+ Years (3 of 3 - PCV20 or PCV21) 05/30/2020 05/30/2015, 07/25/2010 Depression Screening 06/16/2021 06/16/2020 COVID-19 Vaccine ( season) 2024 Influenza Vaccine (FLU shot) (#1) 2024 08/12/2023, 07/16/2022, 06/26/2021, Additional history exists Colonoscopy 08/02/2025 08/02/2015, 08/02/2015 Colorectal Cancer Screening 08/02/2025 Lipid Panel 08/12/2028 08/12/2023, 04/12, 04/14/2013, Additional [...] without dyskinesia or fluctuating manifestations (HCC)- Primary documented in this encounter Care Teams Solutions Engineer Relationship Specialty Start Date End Date Faraz Downey DO [address] [facility] [place] [address] PCP - General Family Medicine 05/10/16 documented as of this encounter
[2024-10-09] MEDS ORDERED: NITROGLYCERIN SL 0.4 MG/TAB TAB SL PRN (06:28)
[2024-10-09] MEDS ORDERED: POLYETHYLENE (MIRALAX) 17 GM PACK PO PRN (06:28)
[2024-10-09] MEDS ORDERED: LORazepam 2 MG/1 ML VIAL IV PRN (06:28)
[2024-10-09] MEDS ORDERED: NON-FORMULARY MEDICATION (Aspirin-Acetaminophen-Caffeine [Excedrin Migraine] 250-250-65 mg PO PRN (06:28)
[2024-10-09] MEDS ORDERED: ACETAMINOPHEN 325 MG TAB PO PRN (06:28)
[2024-10-09] MEDS: SODIUM CHLORIDE 0.9% 1,000 ML IV SCH (07:06)
[2024-10-09 08:01] LABS: Basophils # (auto) 0.03 K/uL (0.00-0.20); Basophils % (auto) 0.4 %; Eosinophils # (auto) 0.05 K/uL (0.00-0.50); Eosinophils % (auto) 0.6 %; Hematocrit (blood only) 37.4 % (42.0-52.0); Hemoglobin 12.6 g/dl (14.0-18.0); Immature Granulocytes # (auto) 0.02 K/uL (0.01-0.20); Immature Granulocytes % (auto) 0.2 %; Lymphocytes # (auto) 2.93 K/uL (1.20-3.40); Lymphocytes % (auto) 35.3 %; Mean Corpuscular Hemoglobin 30.9 pg (25.0-34.0); Mean Corpuscular Hgb Conc 33.7 g/dL (32.0-36.0); Mean Corpuscular Volume 91.7 fL (80.0-100.0); Mean Platelet Volume 9.8 fL (9.4-12.4); Monocytes # (auto) 0.86 K/uL (0.11-0.59); Monocytes % (auto) 10.4 %; Neutrophils % (auto) 53.1 %; Platelet Count 160 K/uL (130-400); RDW Coefficient of Variation 13.1 % (11.5-14.5); RDW Standard Deviation 44.5 fL (36.4-46.3); Red Blood Count 4.08 M/uL (4.70-6.10); White Blood Count 8.29 K/ul (4.8-10.8)
[2024-10-09 08:09] LABS: BUN Creatinine Ratio 27.5 (10-20); Calcium 8.7 mg/dl (8.6-10.3); Creatinine Clr Calc Pharmacy 102.2 ml/min; Magnesium 1.8 mg/dl (1.7-2.4); Potassium 4.2 mmol/L (3.5-5.1)
[2024-10-09 08:15] VITALS: RESP 20
[2024-10-09] MEDS: ENOXAPARIN INJ 40 MG/0.4 ML SYR SQ SCH (09:03)
--- NOTE | 2024-10-09 12:24 | Neurology Consultation ---
Date of Consultation October 09, 2024 Assessment & Plan (1) Syncope and collapse: No Driving per [place] state law following syncopal event Communicated directly with primary/hospitalist team Recommend continued work up to include the following: CTA head & neck MRI brain and cervical spine with and without contrast Echocardiogram as part of complete workup Monitor orthostatic vital signs Continue to monitor/control blood pressure & blood glucose Recommend continue current antiepileptic medications Continue to monitor serum valproic acid level Recommend obtain EEG Provide seizure precautions Utilize benzodiazepines emergently for any breakthrough clinical seizure like activity Continue frequent neurological assessments Obtain stat CT brain without contrast for any acute neurological decline Continue to monitor telemetry closely Recommend ZioPatch at DC if no evidence of arrhythmia during inpatient monit oring Continue to monitor renal and hepatic function, keep euvolemic Metabolic workup should include hgbA1c, fasting lipids Ok from neurology perspective for VTE prophylaxis PT/OT/SLT to eval and treat Recommend eval for MALENA and consider outpatient polysomnography (2) Seizure-like activity: See above Telehealth Consultation Telehealth Information Telehealth Information: I performed this visit using a real-time telehealth connection between my location and the patients location ([facility]). After connecting through interactive tele-video, patient was identified by name and date of and/or wristband check.Patient (or authorized healthcare r epresentative) was informed that this was a telemedicine visit and it was being conducted confidentially over secure lines. My office door was closed and no one else was present in the room with me.Patient (or authorized healthcare brewery representative) provided consent to proceed with the visit, expressed an understanding of privacy and security of the telemedicine visit, and gave permission to have a hospital brewery representative in the room in order to assist with the visit and to conduct portions of the visit, as needed. I informed the patient (or authorized healthcare brewery representative) that I reviewed their record and presented the opportunity for them to ask any questions regarding the visit today. The patient agreed to participate. History of Present Illness Reason for Consultation: Possible seizure Requesting Physician: Dr. Gilbert Attending Physician: Allan Iraheta MD History of Present Illness 59yo right handed male with documented past medical hx of epilepsy, Parkinson's Disease presented to ER following episode of syncope versus seizure while he was at work overnight. He has undergone a CT brain without contrast, personally reviewed, revealing no overt evidence of hemorrhage or acute intracranial pathology. He denies recent changes in medication. Reports continued adherence with antiseizure medications. States he usually works until 2-3AM and remembers going to work without incident and remember it being about 12 midnight then cannot recall any events until about 1:30AM when he was in hospital. He is unable to recall visual auditory olfactory gustatory or gastrointestinal sensation leading up to the event. There was no reported loss of bowel or bladder. No evidence of tongue biting. Currently he has no reported cephalgia but reports cervicalgia. Denies chest pain/palpitations or shortness of breath. No reported changes in vision hearing or paresthesia. Denies recent fevers chills nausea vomiting changes in bowels or bladder. No reported recent weight loss or weight gain. Denies recent medication changes, recent illness or sick contacts, no reported recent travel. I have performed televideo consultation. He is alert & oriented; able to answer all questions appropriately, name objects on televideo monitor, repeat phrases and perform complex/embedded commands without deficit. Neurological exam is non lateralizing/nonfocal in terms of motor strength and coordination. There is no overt evidence of facial asymmetry. I do not appreciate dysarthria. There is noted BUE tremor. Allergies Allergy/AdvReac Type Severity Reaction Status Date / Time mushroom Allergy Unknown "ENDED UP Verified 10/09/24 04:03 IN HOSPITAL" Home Medications Medication Instructions Recorded Confirmed Type divalproex 250 mg tablet,delayed 250 mg PO UD 04/21/19 10/09/24 History release divalproex 500 mg tablet,delayed 1,000 mg PO UD 04/21/19 10/09/24 History release levetiracetam 250 mg tablet 500 mg PO UD 04/21/19 10/09/24 History uyyhtzn-ywcubyycdhvgk-cuvxgcjc 250 1 tab PO BID PRN Headache 06/04/19 10/09/24 History mg-250 mg-65 mg tablet (Excedrin Migraine) ibuprofen 200 mg tablet 200 mg PO Q6H PRN Pain 06/04/19 10/09/24 History carbidopa ER 50 mg-levodopa 200 mg 1 tab PO UD 10/09/24 10/09/24 History tablet,extended release Patient History Medical History Parkinson disease Epilepsy Surgical History No significant past surgical history Family History Other Lung cancer Social History Smoking Status: Current every day smoker Tobacco Type: Cigarettes Cigarettes Per Day: 5-6; Second Hand Exposure: No; Do You Dip or Chew Tobacco: No; Tobacco Cessation Education Requested by Patient: No Hx Alcohol Use: Yes Alcohol type: beer Hx Substance Use: No Preferred Language: Jamaican Communication Ability: Effective Black Topper Required: No Beliefs That Will Affect Care: None marital status: Single Current Living Situation: Alone current occupational status: employed Feels Safe at Home: Yes Safety Concerns: Feels Safe At This Time Assistive Devices: Brace/Splint/Immobilizer Assistive Devices Comment: back brace Physical Exam Neurological Examination: Mental Status: Awake and alert. Oriented to person, place, and time. Fluency naming repetition and comprehension appear grossly intact. Affect remains appropriate. CN testing: I: Deferred II:Reports no changes in visual acuity III/IV/: No evidence of gaze preference, hippus, nystagmus or roving eye movements V: Facial sensation reportedly grossly intact to light touch bilaterally VII: Facial movements appear without evidence of asymmetry VIII: Hearing appears grossly intact to loud voice bilaterally IX/X: Palate is unable to be accurately visualized via telemedicine XI: Shoulder shrug appears symmetric/ grossly intact bilaterally XII: Tongue protrudes midline without evidence of biting Motor exam: Strength appears grossly intact/symmetric in all extremities Sensory: Sensation is reportedly grossly intact throughout Coordination: There is tremor BUE, resting and intentional Reflexes: Deferred Gait: Deferred Results & Data Vital Signs (Past 12 Hours) Vital Signs Temp Pulse Pulse Pulse Resp BP BP 10/09/24 08:14 36.3 C L 96 H 90 20 145/93 H 10/09/24 08:00 72 10/09/24 06:28 10/09/24 06:02 36.4 C L 65 16 129/76 10/09/24 05:43 73 16 141/82 H 10/09/24 04:53 74 18 152/65 H 10/09/24 03:00 72 18 117/67 10/09/24 02:00 80 20 131/97 10/09/24 01:20 80 10/09/24 01:05 36.5 C 85 24 144/85 H Pulse Ox Pulse Ox O2 Del Method O2 Del Method 10/09/24 08:14 96 Room Air 10/09/24 08:00 10/09/24 06:28 96 Room Air 10/09/24 06:02 96 Room Air 10/09/24 05:43 97 Room Air 10/09/24 04:53 96 Room Air 10/09/24 03:00 93 Room Air 10/09/24 02:00 94 Room Air 10/09/24 01:20 10/09/24 01:05 96 Room Air Laboratory Results Abnormal lab results 10/09/24 10/09/24 10/09/24 Range/Units 01:16 07:39 07:44 RBC 4.58 L 4.08 L (4.70-6.10) M/uL Hgb 13.9 L 12.6 L (14.0-18.0) g/dl Hct 37.4 L (42.0-52.0) % [place] # (Auto) 0.86 H (0.11-0.59) K/uL Sodium 133 L (136-145) mmol/L Carbon Dioxide 33 H (21-32) mmol/L BUN 27 H (6-23) mg/dl Creatinine 0.59 L (0.6-1.4) mg/dl BUN/Creatinine Ratio 45.8 H 27.5 H (10-20) Salicylates < 3.0 L (3.0-30) mg/dl Acetaminophen < 3 L (10-30) ug/ml Valproic Acid 121 H (50-100) mcg/ml Diagnostic Findings Head CT 10/09/24 01:05 EXAM: CT head/brain wo con CLINICAL HISTORY: Seizure, hx of parkinsons. TECHNIQUE: Axial non-contrast CT scan of the brain was performed from the skull base to the high parietal region. One of the following dose reduction techniques were utilized for this exam: Automated exposure control, adjustment of the mA and/or kV according to patient size, use of iterative reconstruction. CTDI: 75.22 mGy. DLP: 859.95 mGy.cm. COMPARISON: 07/17/2017 CT. FINDINGS: Brain Parenchyma: Normal attenuation of the cerebral hemispheres, cerebellum, and brainstem. Age-related parenchymal volume loss with capacious CSF spaces. No acute brain hemorrhage or major territorial infarct. Ventricular System: No evidence of hydrocephalus or ventricular enlargement. Subarachnoid Spaces: No evidence of subarachnoid hemorrhage or extra-axial fluid collections. Cerebellum and Brainstem: No masses, lesions, or areas of abnormal densities. Orbits: No evidence of orbital masses or abnormal densities. Sinuses: Mucosal thickening of both maxillary antra with air-fluid leveling noted on the left. Minimal opacification of the ethmoid air cells. Mastoid Air Cells: Unchanged opacification and hypo-pneumatization of the mastoid air cells. Skull: Unchanged left nasal bone deformity/old fracture. Unchanged right occipital bone posterior. No acute displaced fractures. IMPRESSION: 1. No acute brain hemorrhage or major territorial infarct. 2. Newly appreciated mucosal thickening/partial opacification of the mastoid air cells and minimal opacification of the ethmoid sinus. Clinical correlation is advised to assess for sinusitis. 3. Unchanged hypopneumatization and partial opacification of the mastoid air cells. 4. No other significant interval change. Electronically signed by Gianna Cavanaugh 10-09-2024 02:56 AM Medications Administered Home Medications Medication Instructions Recorded Confirmed Last Taken divalproex 250 mg tablet,delayed 250 mg PO UD 04/21/19 10/09/24 06/04/19 release divalproex 500 mg tablet,delayed 1,000 mg PO UD 04/21/19 10/09/24 06/04/19 release levetiracetam 250 mg tablet 500 mg PO UD 04/21/19 10/09/24 06/04/19 lvhtqcj-cfkzrlieglovm-outrmyan 250 1 tab PO BID PRN Headache 06/04/19 10/09/24 06/04/19 mg-250 mg-65 mg tablet (Excedrin Migraine) ibuprofen 200 mg tablet 200 mg PO Q6H PRN Pain 06/04/19 10/09/24 06/04/19 400 mg carbidopa ER 50 mg-levodopa 200 mg 1 tab PO UD 10/09/24 10/09/24 Unknown tablet,extended release Active Medications Generic Name Dose Route Start Last Admin Trade Name Freq PRN Reason Stop Dose Admin Enoxaparin Sodium 40 mg 10/09/24 09:00 10/09/24 09:03 Enoxaparin Inj 40 Mg/0.4 Ml Syr SQ 11/08/24 06:27 40 mg Q24H GALILEA Administration Sodium Chloride 1,000 mls @ 80 mls/hr 10/09/24 06:28 10/09/24 07:06 Nss IV 10/10/24 06:27 80 mls/hr .[id number] GALILEA Administration
--- NOTE | 2024-10-09 13:15 | Communication Note ---
Patient seen and examined at bedside. Mr. Crockett is doing ok today. He states he takes all meds as prescribed. Feels relatively close to baseline. States he feels fairly certain he had a seizure, but has not had seizures in quite a while. Neurology consulted, recommended imaging which has been ordered. EEG and labs ordered as well. Date of Service: October 09, 2024
[2024-10-09] MEDS: GADOBUTROL 30ML VIAL IV ONE (14:20)
[2024-10-09] MEDS: OPTIRAY 320 125ml IV ONE (14:39)
--- NOTE | 2024-10-09 14:43 | Magnetic Resonance Report ---
HISTORY: Seizure at work early this morning. On multiple seizure medications TECHNIQUE: Multiplanar multiecho MR imaging of the brain was performed prior to and following uneventful administration of 6.3 mL of Gadavist IV contrast. COMPARISON: Head CT without contrast dated 10/09/2024. FINDINGS: The cerebellar tonsils do not extend below the foramen magnum. The sella is not expanded. Included upper cervical spinal cord is unremarkable. No areas of restricted diffusion to suggest acute infarct.The brain parenchyma demonstrates normal signal intensity on T2 weighted imaging. There is mild diffuse volume loss. Ventricular caliber is appropriate. Fourth ventricle is midline. The basal cisterns are patent. The globes and orbits are unremarkable. Moderate maxillary sinus mucosal thickening. No air-fluid levels. Bilateral mastoid effusion. Major intracranial flow voids are maintained. No abnormal intracranial enhancement. IMPRESSION: 1. No evidence of acute infarct, intracranial hemorrhage, enhancing mass, or mass effect. 2. Mild diffuse volume loss. Electronically signed by Medhat Whittaker 10-09-2024 2:42 PM
--- NOTE | 2024-10-09 15:09 | CT Scan Report ---
HISTORY: New onset seizure TECHNIQUE: Helical CT angiography of the neck was performed following uneventful administration of 115 mL of Optiray 320 IV contrast. Images are presented in axial, sagittal, and coronal reformats. Coronal and sagittal 3D MIP reconstructions are also provided COMPARISON: None. FINDINGS: Arch vessel origins are incompletely included. The common carotid arteries are patent. The internal carotid arteries are patent. Carotid bifurcations are unremarkable. The cervical vertebral arteries are patent. Intradural vertebral arteries are patent. The left vertebral artery is slightly dominant. The included lung apices are clear. The soft tissues of the neck are unremarkable. The included intracranial contents are unremarkable. Globes and orbits are unremarkable. Maxillary sinus mucosal thickening. Mild degenerative changes of the cervical spine. No acute osseous abnormality. IMPRESSION: No evidence of cervical arterial occlusion, focal hemodynamically significant stenosis, or dissection. Electronically signed by Medhat Whittaker 10-09-2024 3:09 PM
--- NOTE | 2024-10-09 15:12 | CT Scan Report ---
HISTORY: New onset seizure TECHNIQUE: Helical CT angiography of the head following uneventful administration 115 mL of Optiray 320 IV contrast. Images are presented in axial and coronal reformats. Coronal and sagittal 3D MIP reconstructions are also provided. COMPARISON: None FINDINGS: The distal internal carotid arteries are patent. Both A1 segments are present and patent. Patent anterior communicating artery. The anterior cerebral artery branches are patent. The M1 and proximal M2 segment branches are patent. The more distal MCA branches appear symmetric. The superior sagittal sinus and transverse sinuses appear patent. The intradural vertebral arteries are patent. Basilar artery is patent. The posterior cerebral arteries are patent. No enhancing intracranial mass or vascular malformation is evident. The globes and orbits are unremarkable. The soft tissues of the skull base and scalp are unremarkable. There is mucosal thickening of the maxillary sinuses with mucous retention cysts or polyps. No paranasal sinus air-fluid levels. Mastoid air cells are well aerated. IMPRESSION: 1. No evidence of central vessel occlusion or focal hemodynamically significant stenosis. 2. No enhancing intracranial mass or vascular malformation is evident. Electronically signed by Medhat Whittaker 10-09-2024 3:11 PM
[2024-10-09] MEDS: DIVALPROEX DELAY RELEASE 250 MG TABEC PO SCH (16:10)
[2024-10-09] MEDS: DIVALPROEX DELAY RELEASE 500 MG TAB PO SCH (16:10)
[2024-10-09] MEDS: CARBIDOPA/LEVODOPA 50/200MG EXT REL TAB PO SCH (16:11)
[2024-10-09] MEDS: levETIRAcetam 500 MG TAB PO SCH (16:12)
[2024-10-09 16:50] VITALS: BP 128/82; TEMP 97.5; O2SAT 99
[2024-10-09 17:07] LABS: Appearance Urine Clear (Clear); Bacteria Urine Automated 4+ (None Seen); Bilirubin Urine Negative (Negative); Blood Urine Negative (Negative); Cast Urine Automated 0-2 /lpf (0-2); Color Urine Yellow; Epithelial Cell Urine Auto 0-2 /hpf (0-2); Glucose Urine UA Negative (Negative); Ketones Urine Negative (Negative); Leukocyte Esterase Urine 1+ (Negative); Nitrite Urine Positive (Negative); Protein Urine Negative (Negative); RBC Urine Automated 0-2 /hpf (0-2); Specific Gravity Urine 1.039 (1.000-1.030); Urobilinogen Urine Negative (Negative); WBC Urine Automated 0-5 /hpf (0-5); pH Urine 7.5 (4.5-7.5)
[2024-10-09] MEDS ORDERED: cefTRIAXone SODIUM 2,000 MG/50 ML BAG IV SCH (17:30)
[2024-10-09 17:36] LABS: Amphetamines+Metham, Urine Neg (Neg); Barbiturates, Urine Neg (Neg); Benzodiazepine, Urine Neg (Neg); Cocaine, Urine Neg (Neg); Fentanyl, Urine Neg (Neg); MDMA (Ecstacy), Urine Neg (Neg); Marijuana, Urine Neg (Neg); Methadone, Urine Neg (Neg); Opiate, Urine Neg (Neg); Phencyclidine, Urine Neg (Neg)
--- NOTE | 2024-10-09 17:51 | Discharge Summary ---
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 Patient works in [employer]. Around 12 midnight at work he seems to have passed out and had a possible seizures. Patient does not remember anything. Patient says he does not remember anything from 12 midnight -1 30 a.m. when he woke up in the ER. Patient has tremors in his extremities. Patient states he has Parkinson's and takes carbidopa levodopa. Denies any headache. No fevers. No runny nose or sore throat. No cough. Appetite is okay. Denies chest pain or shortness of breath. No nausea. No abdominal pain. Normal bowel improvements. Currently hemodynamics are okay. Patient lives alone. Says his family is in [place]. States he takes his medications at 3 AM and 3 PM because of his work. 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 Admitted to medicine for possible seizure. On medicine, neurology consulted, recommended EEG and imaging. Imaging unrevealing for cause of seizure. EEG performed. Patient insisted on going home before EEG read and final neurology recs, understands workup for breakthrough seizure not complete. On 10/09/2024 patient discharged home, will need f/u with neurology and PCP. Of note, urine positive for bacteria and infection, could be cause of lowered seizure threshold. 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 Patient works in [employer]. Around 12 midnight at work he seems to have passed out and had a possible seizures. Patient does not remember anything. Patient says he does not remember anything from 12 midnight -1 30 a.m. when he woke up in the ER. Patient has tremors in his extremities. Patient states he has Parkinson's and takes carbidopa levodopa. Denies any headache. No fevers. No runny nose or sore throat. No cough. Appetite is okay. Denies chest pain or shortness of breath. No nausea. No abdominal pain. Normal bowel improvements. Currently hemodynamics are okay. Patient lives alone. Says his family is in [place]. States he takes his medications at 3 AM and 3 PM because of his work. Past medical history. As mentioned above. Past surgical history. Colonoscopy. Reconstruction of the nose. Social history. Smoked average of 0.3 pack a day for 17 years. Alcohol rarely. No drug use. Family history. No family history on file Discharge Exam Gen: A&O 3 NAD HEENT: NCAT, EOMI, not icteric. External ears normal. No rhinorrhea. Moist mucous membranes. Neck: Supple, full range of motion, no observable masses, No meningeal sign. Lungs: No Respiratory distress. CV: RRR, no edema. Abdomen: Soft, nondistended, No rebound tenderness. MSK: No joint swelling, no redness. Skin: No rashes, petechiae, lesions. Normal color per patient. Neuro: Normal Gait, Grossly intact. Pill roll tremor in hands noted, flattened facial expressions also noted Psych: Appropriate for situation. Updated Medication List Medication Instructions Recorded Confirmed Type divalproex 250 mg tablet,delayed 250 mg PO UD 04/21/19 10/09/24 History release divalproex 500 mg tablet,delayed 1,000 mg PO UD 04/21/19 10/09/24 History release levetiracetam 250 mg tablet 500 mg PO UD 04/21/19 10/09/24 History xgiyoti-nngseauefwews-igducpww 250 1 tab PO BID PRN Headache 06/04/19 10/09/24 History mg-250 mg-65 mg tablet (Excedrin Migraine) ibuprofen 200 mg tablet 200 mg PO Q6H PRN Pain 06/04/19 10/09/24 History carbidopa ER 50 mg-levodopa 200 mg 1 tab PO UD 10/09/24 10/09/24 History tablet,extended release ciprofloxacin HCl 500 mg tablet 500 mg PO BID 5 days #10 tabs 10/09/24 Rx Hospital Stay Data Consultations 10/09/24 03:15 ED Decision to Admit Stat 10/09/24 08:00 Consult Neurology Routine Diagnostic Imagining Performed 10/09/24 01:05 CT head/brain wo con Stat 10/09/24 12:57 MR brain wo/w con Urgent 10/09/24 12:58 CTA head w con [CT angio head w con] Urgent CTA neck with con [CT angio neck with con] Urgent Pending Results Patient Have Any Pending Studies at Discharge: No Discharge Instructions Given to Patient (Per Discharging Provider) 1. Please do not miss any doses of your seizure medication. 2. Follow up with PCP and neurologist within next month. 3. Finish course of antibiotics for UTI. Total Time Total Time Spent Total Time Spent (In Minutes): I spent a total of 35 minutes in direct patient care, including [id number] time with the patient and/or family, reviewing medical records, ordering and reviewing diagnostic tests, and coordinating care with other healthcare providers. This time includes: history taking, physical examination, medical decision making, counseling, ECG interpretation, imaging interpretation, lab interpretation, orders, and education, excluding time spent in the performance of separately billed services.
[2024-10-09 17:53] VITALS: PULSE 96
[2024-10-09] MEDS ORDERED: CIPROFLOXACIN 500 MG TAB PO STA (18:13)
--- NOTE | 2024-10-11 06:34 | Electroencephalogram ---
EEG Procedure Note Date of Service October 09, 2024 Start / End Times Start Time: 1529 End Time: [address] Esequiel Lemus History A 59 yo M w history of epilepsy. EEG performed for evaluation of epileptiform activity. Home Medication List Medication Instructions Recorded Confirmed Type divalproex 250 mg tablet,delayed 250 mg PO UD 04/21/19 10/09/24 History release divalproex 500 mg tablet,delayed 1,000 mg PO UD 04/21/19 10/09/24 History release levetiracetam 250 mg tablet 500 mg PO UD 04/21/19 10/09/24 History fhzfwdu-hmnzdqfmhknxt-ktdnzbse 250 1 tab PO BID PRN Headache 06/04/19 10/09/24 History mg-250 mg-65 mg tablet (Excedrin Migraine) ibuprofen 200 mg tablet 200 mg PO Q6H PRN Pain 06/04/19 10/09/24 History carbidopa ER 50 mg-levodopa 200 mg 1 tab PO UD 10/09/24 10/09/24 History tablet,extended release ciprofloxacin HCl 500 mg tablet 500 mg PO BID 5 days #10 tabs 10/09/24 Rx Inpatient Medication List Discontinued Medications Carbidopa/Levodopa (Carbidopa/Levodopa 50/200mg Ext Rel Tab) 1 tab PO NOW STA Stop: 10/09/24 04:53 Last Admin: 10/09/24 05:17 Dose: 1 tab Documented By: CARLOS Carbidopa/Levodopa (Carbidopa/Levodopa 50/200mg Ext Rel Tab) 1 tab PO BID@0300,1500 [facility] Stop: 11/08/24 14:59 Last Admin: 10/09/24 16:11 Dose: 1 tab Documented By: MISAEL Divalproex Sodium (Divalproex Delay Release 500 Mg Tab) 1,000 mg PO NOW STA Stop: 10/09/24 04:51 Last Admin: 10/09/24 05:16 Dose: 1,000 mg Documented By: AN Divalproex Sodium (Divalproex Delay Release 250 Mg Tabec) 250 mg PO NOW STA Stop: 10/09/24 04:51 Last Admin: 10/09/24 05:17 Dose: 250 mg Documented By: AN Divalproex Sodium (Divalproex Delay Release 250 Mg Tabec) 250 mg PO BID@0300,1500 [facility] Stop: 11/08/24 14:59 Last Admin: 10/09/24 16:10 Dose: 250 mg Documented By: MISAEL Divalproex Sodium (Divalproex Delay Release 500 Mg Tab) 1,000 mg PO BID@0300,1500 [facility] Stop: 11/08/24 14:59 Last Admin: 10/09/24 16:10 Dose: 1,000 mg Documented By: MISAEL Enoxaparin Sodium (Enoxaparin Inj 40 Mg/0.4 Ml Syr) 40 mg SQ Q24H [facility]A Stop: 11/08/24 06:27 Last Admin: 10/09/24 09:03 Dose: 40 mg Documented By: MISAEL Gadobutrol (Gadobutrol 30ml Vial) 6.3 ml IV ONCE ONE Stop: 10/09/24 14:25 Last Admin: 10/09/24 14:20 Dose: 6.3 ml Documented By: LASHAY Sodium Chloride (Nss) 1,000 mls @ 80 mls/hr IV .[id number] [facility] Stop: 10/10/24 06:27 Last Admin: 10/09/24 07:06 Dose: 80 mls/hr Documented By: CK Ioversol (Optiray 320 125ml) 115 ml IV ONCE ONE Stop: 10/09/24 14:39 Last Admin: 10/09/24 14:39 Dose: 115 ml Documented By: ALFREDO Levetiracetam (Levetiracetam 500 Mg Tab) 500 mg PO NOW STA Stop: 10/09/24 04:54 Last Admin: 10/09/24 05:17 Dose: 500 mg Documented By: CARLOS Levetiracetam (Levetiracetam 500 Mg Tab) 500 mg PO BID@0300,1500 [facility] Stop: 11/08/24 14:59 Last Admin: 10/09/24 16:12 Dose: 500 mg Documented By: MISAEL Lorazepam (Lorazepam 1 Mg Tab) 1 mg SL NOW STA Stop: 10/09/24 03:15 Last Admin: 10/09/24 05:17 Dose: 1 mg Documented By: CARLOS Description This is a 21 electrode EEG with a single channel dedicated to limited EKG. The electrodes were placed in accordance with the International 10-20 system. REPORT: At the onset the EEG the patient is awake and the background is symmetric. The posterior dominant rhythm is 9-10 Hz. There is intermittent IV artifact throughout the study. No sleep transients are seen. Interpretation IMPRESSION: This is a normal awake routine EEG. No electrographic seizures are seen. An outpatient routine EEG may be beneficial given the frequent IV artifact noted.
--- NOTE | 2024-10-11 13:49 | Electrocardiogram Report ---
Test Reason : Blood Pressure : */* mmHG Vent. Rate : 75 BPM Atrial Rate : 75 BPM P-R Int : 122 ms QRS Dur : 84 ms QT Int : 370 ms P-R-T Axes : 17 6 31 degrees QTcB Int : 413 ms Poor data quality, interpretation may be adversely affected Normal sinus rhythm Septal infarct , age undetermined Abnormal ECG When compared with ECG of 21-Apr-2019 16:26, Septal infarct is now Present Confirmed by Balwinder Boone ([id number]) on 10/11/2024 1:49:39 PM Referred By: REFERRED SELF Confirmed By: Balwinder Boone
== END 2024-10-09 18:47 | disposition home or self-care (01) | DRG 101 ==
LOC: ED 00:59 → 2S 04:56

== ENCOUNTER 2025-06-06 17:40 | Inpatient (IN) ==
[2025-06-06] MEDS: SODIUM CHLORIDE 0.9% 1,000 ML IV SCH (18:45)
--- NOTE | 2025-06-06 18:57 | Emergency Department Note ---
Impression & Plan AMS (altered mental status), Generalized weakness, Weight loss, Recurrent falls, Unable to care for self ED Provider Note ED Provider Note NAME: PANFILO MILLS AGE:60 SEX: Male : 1965 ARRIVES VIA: private vehicle INFORMANT: Patient ED PROVIDER(s): Melodie Clark DO CHIEF COMPLAINT: confusion, weakness, weight loss, fall HPI: This is a 60-year-old male presents emergency department due to concern for evaluation by friend/advocate at bedside as well as family after recent visit for patient's confusion, weakness, weight loss, and recent falls. Friend who is on the patient for years and has become an advocate helping him as healthcare is at bedside helps to provide history. He states patient did have a fall at home last night when he was trying to open the door for this friend and a fall earlier today. This friend states that family has only recently become aware of his condition and is concerned. The friend did take him to his neurology visit last week as the patient does have a history of Parkinson's and epilepsy. Patient states that one of his medications was decreased and they were concerned as to whether or not the patient was taking it correctly. Friend states that in the interim he did begin to examine all the patient's pill bottles which will scattered all over his apartment and try and put them in a container on a timer to help him remember to appropriately take his medications. Friend is also noticed significant 20+ pound weight loss in the last few months. Friend at bedside states he had been estranged from family however his sister states he has come to see him within the last few days and is concerned for his overall condition. Friend states there is no formal power of senior enterprise architect established. No use of antiplatelet or anticoagulation medication. PAST MEDICAL HISTORY:See Below PAST SURGICAL HISTORY:See Below FAMILY HISTORY:See Below SOCIAL HISTORY:See Below HOME MEDICATIONS:See Below ALLERGIES:See Below VITALS:See Below PHYSICAL EXAMINATION: GENERAL: alert, unwell appearing, well nourished, no distress, non-toxic HEAD: nc/at, small contusion noted central inferior forehead, small infraorbital ecchymosis laterally EYE EXAM: normal conjunctiva, PERRL and EOM's grossly intact OROPHARYNX: no exudate, no erythema, lips, buccal mucosa, and tongue normal and mucous membranes are dry NECK: supple, no nuchal rigidity, no adenopathy, non-tender, FROM LUNGS: Clear to auscultation. Normal chest wall mechanics, no w/r/r HEART: no murmurs, S1 normal and S2 normal CHEST WALL: no crepitus, no step off ABDOMEN: abdomen soft, non-tender, normo-active bowel sounds, no masses, no rebound or guarding. PELVIS: stable to compression, nontender with palpation SKIN: no rashes, petechiae, orbruising UPPER EXTREMITIES: upper extremities are grossly normal. FROM, nml pulses b/l. No evidence of trauma or deformity. LOWER EXTREMITIES: No pitting edema. FROM, nml pulses b/l. No evidence of trauma or deformity. NEURO EXAM: Knows name/place - difficulty answering questions about his health or chronology of events, cranial nerves II-XII grossly intact, normal speech, no facial droop,moving all extremities b/l. Gross sensation intact. No limb ataxia. Vital Signs: reviewed and remarkable Differential Diagnosis: dehydration, stroke, anemia, hypoglycemia, hyponatremia, hypernatremia, urinary tract infection, pneumonia, bronchitis, sepsis, gastroenteritis, additional abdominal pathology, metabolic abnormalities, as well as others were considered MEDICAL DECISION MAKING: This is a 60-year-old male presents the emergency department with a friend/advocate due to concern for increased weakness, weight loss, confusion, and inability to appropriately care for himself. Patient does look alone. Friend has been trying to help manage his ongoing medical issues and also reconnect the patient with family. Patient was afebrile and hemodynamically stable. Did not appear clinically dehydrated. Labs drawn and sent, IV established, EKG and chest were performed at bedside and interpreted by me and patient was monitored on telemetry. Patient was started on IV fluids. No ectopy or dysrhythmia noted. Patient's mental status seem to wax and wane while in the department. No obvious focal neuro deficit. Patient's friend at bedside helps to provide additional history. Patient's labs reassuring, he was sent for CT head/face/C-spine as well as CT abdomen and pelvis given complaints as well as recent falls. No evidence of acute traumatic injury. No evidence of intracranial hemorrhage or obvious stroke to otherwise explain his recent decline. Friend denies any recent change in medications or other recent focal illness. Urine specimen obtained via straight cath did not reveal any obvious infection. Case discussed with the hospitalist team for additional evaluation and management. Consultation(s): 1115: Discussed with Dr. Gilbert, [facility] hospitalist team, for additional evaluation and mgmt. ER Treatment Provided: See below Diagnostics Interpreted By Me: -ECG: nsr at 89, nml intervals, nml axis, no acute ST/T wave changes -Cardiac Monitoring: An order was placed for continuous cardiac monitoring. The monitor shows a rate of 90 with normal sinus rhythm. -Laboratory studies: As stated above and show below. -Imaging studies: ct head: no ich Triage Nursing Note Reviewed Prior/Outside Records Reviewed Past Med/Surg History Problem List (Updated 06/06/25 @ 23:07 by Melodie Clark, ) Unable to care for self (Acute) Recurrent falls (Acute) Weight loss (Acute) Generalized weakness (Acute) AMS (altered mental status) (Acute) Syncope and collapse Seizure-like activity (Acute) Grand mal seizure (Acute) Seizure (Acute) Medical History Parkinson disease Epilepsy Surgical History No significant past surgical history Family History Other Lung cancer Social History Smoking Status: Never smoker Tobacco Type: Cigarettes Cigarettes Per Day: 5-6; Second Hand Exposure: No; Do You Dip or Chew Tobacco: No; Hx Alcohol Use: Yes Alcohol type: beer Hx Substance Use: No Preferred Language: Amharic Communication Ability: Effective Senior 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: No Beliefs That Will Affect Care: None marital status: Single Current Living Situation: Alone current occupational status: employed Feels Safe at Home: Yes Assistive Devices: Brace/Splint/Immobilizer Allergies Allergies Allergy/AdvReac Type Severity Reaction Status Date / Time mushroom Allergy Unknown "ENDED UP Verified 10/09/24 04:03 IN HOSPITAL" Home Meds Home Medications Medication Instructions Recorded Confirmed divalproex 250 mg tablet,delayed 250 mg PO UD 04/21/19 10/09/24 release divalproex 500 mg tablet,delayed 1,000 mg PO UD 04/21/19 10/09/24 release levetiracetam 250 mg tablet 500 mg PO UD 04/21/19 10/09/24 gvespcq-poxxzzogyfujr-vzqrhlog 250 1 tab PO BID PRN Headache 06/04/19 10/09/24 mg-250 mg-65 mg tablet (Excedrin Migraine) ibuprofen 200 mg tablet 200 mg PO Q6H PRN Pain 06/04/19 10/09/24 carbidopa ER 50 mg-levodopa 200 mg 1 tab PO UD 10/09/24 10/09/24 tablet,extended release Results & Data (ED) Vital Signs Vital Signs - 24 hr 06/06/25 18:02 06/06/25 18:25 06/06/25 18:47 Temperature 36.6 C Temperature Source Temporal Artery Scan Pulse Rate 114 H 90 Pulse Rate [Apical] 92 H Pulse Rhythm [Apical] Regular Pulse Strength [Apical] Normal Respiratory Rate 20 37 H Respiratory Effort / Characteristics Non-Labored Spontaneous Non-Labored Spontaneous Respiratory Depth Normal Normal Respiratory Pattern Regular Regular Blood Pressure 78/55 L Blood Pressure [Left Arm] 124/73 Blood Pressure Mean 62 Blood Pressure Mean [Left Arm] 90 Blood Pressure Position [Left Arm] Sitting Pulse Oximetry 95 97 Oxygen Delivery Method Room Air Room Air Sepsis Recent Fever Within 48 Hours No Sepsis New/Unexplained Change in Mental Status No Sepsis Action Taken by Nursing No Action Required 06/06/25 19:10 06/06/25 20:00 06/06/25 22:00 Temperature Temperature Source Pulse Rate Pulse Rate [Apical] 82 77 Pulse Rhythm [Apical] Pulse Strength [Apical] Respiratory Rate 16 16 Respiratory Effort / Characteristics Respiratory Depth Respiratory Pattern Blood Pressure Blood Pressure [Left Arm] 158/96 H 143/72 H Blood Pressure Mean Blood Pressure Mean [Left Arm] 116 95 Blood Pressure Position [Left Arm] Pulse Oximetry 96 Oxygen Delivery Method Room Air Sepsis Recent Fever Within 48 Hours Sepsis New/Unexplained Change in Mental Status Sepsis Action Taken by Nursing 06/06/25 22:31 Temperature Temperature Source Pulse Rate 85 Pulse Rate [Apical] Pulse Rhythm [Apical] Pulse Strength [Apical] Respiratory Rate Respiratory Effort / Characteristics Respiratory Depth Respiratory Pattern Blood Pressure Blood Pressure [Left Arm] Blood Pressure Mean Blood Pressure Mean [Left Arm] Blood Pressure Position [Left Arm] Pulse Oximetry Oxygen Delivery Method Sepsis Recent Fever Within 48 Hours Sepsis New/Unexplained Change in Mental Status Sepsis Action Taken by Nursing Laboratory Data 06/06/25 18:29 06/06/25 18:29 Lab Results 06/06/25 06/06/25 06/06/25 Range/Units 18:29 18:36 22:52 WBC 8.09 (4.8-10.8) K/ul RBC 4.14 L (4.70-6.10) M/uL Hgb 12.0 L (14.0-18.0) g/dl POC Hgb 13.3 L (14.0-18.0) g/dl Hct 36.0 L (42.0-52.0) % POC Hct 39 L (42-52) % MCV 87.0 (80.0-100.0) fL MCH 29.0 (25.0-34.0) pg MCHC 33.3 (32.0-36.0) g/dL RDW Std Deviation 42.9 (36.4-46.3) fL RDW Coeff of Alley 13.4 (11.5-14.5) % Plt Count 96 L (130-400) K/uL MPV 11.4 (9.4-12.4) fL Immature Gran % (Auto) 0.6 % Neut % (Auto) 68.3 % Lymph % (Auto) 20.3 % Whiteside % (Auto) 9.0 % Eos % (Auto) 1.4 % Baso % (Auto) 0.4 % Neut # (Auto) 5.53 (1.40-6.50) K/uL Lymph # (Auto) 1.64 (1.20-3.40) K/uL Whiteside # (Auto) 0.73 H (0.11-0.59) K/uL Eos # (Auto) 0.11 (0.00-0.50) K/uL Baso # (Auto) 0.03 (0.00-0.20) K/uL Immature Gran # (Auto) 0.05 (0.01-0.20) K/uL Platelet Estimate Decreased L (Normal) PT 12.4 H (9.0-12.0) Seconds INR 1.2 H (0.9-1.1) POC Sodium 138 (135-144) mmol/L Sodium 139 (136-145) mmol/L POC Potassium 3.3 (3.3-5.0) mmol/L Potassium 3.5 (3.5-5.1) mmol/L POC Chloride 95 L (101-112) mmol/L Chloride 94 L (98-107) mmol/L Carbon Dioxide 33 H (21-32) mmol/L POC Total CO2 32 H (24-31) mmol/L Anion Gap 12 H (3-11) POC Anion Gap 15.0 L (16-25) mmol/L POC BUN 47 H (7-18) mg/dl BUN 52 H (6-23) mg/dl Creatinine 1.19 (0.6-1.4) mg/dl POC Creatinine 1.2 (0.6-1.3) mg/dl Est Cr Clr Drug Dosing Not Reportable eGFR 69.06 BUN/Creatinine Ratio 43.7 H (10-20) Glucose 111 H (70-99(Fasting)) mg/dl POC Glucose (other) 109 H (70-99) mg/dl Calcium 9.3 (8.6-10.3) mg/dl POC Ioniz Calcium Omar 1.09 L (1.12-1.32) mmol/l Magnesium 2.3 (1.7-2.4) mg/dl Total Bilirubin 0.5 (0.2-1.0) mg/dl AST 11 L (13-39) U/L ALT < 3 L (7-52) U/L Alkaline Phosphatase 72 (34-104) U/L Troponin I High Sens 8.2 (0-20) pg/ml Total Protein 6.9 (6.0-8.3) gm/dl Albumin 3.5 (3.4-5.0) gm/dl Globulin 3.4 (2.5-4.0) gm/dl Albumin/Globulin Ratio 1.0 (0.9-2) Lipase 73 (11-82) U/L TSH 1.494 (0.300-4.500) uIu/ml Urine Color Dark Yellow Urine Appearance Clear (Clear) Urine pH 6.0 (4.5-7.5) Ur Specific [place] 1.026 (1.000-1.030) Urine Protein Trace H (Negative) Urine Glucose (UA) Negative (Negative) Urine Ketones 1+ H (Negative) Urine Blood Negative (Negative) Urine Nitrite Negative (Negative) Urine Bilirubin Negative (Negative) Urine Urobilinogen Negative (Negative) Ur Leukocyte Esterase Trace H (Negative) Urine Comment Valproic Acid 102 H (50-100) mcg/ml Administered Medications Sodium Chloride (Nss) 1,000 mls @ 200 mls/hr IV .Q5H GALILEA Stop: 06/09/25 18:44 Last Admin: 06/06/25 18:45 Dose: 200 mls/hr Documented By: TOBIAS Discontinued Medications Ioversol (Optiray 320 100ml) 90 ml IV ONCE ONE Stop: 06/06/25 19:45 Last Admin: 06/06/25 19:45 Dose: 90 ml Documented By: TRELL Lorazepam (Lorazepam 1 Mg/1 Ml Syr Ed Inj Use) 0.25 mg IV ONE STA Stop: 06/06/25 20:59 Last Admin: 06/06/25 21:53 Dose: 0.25 mg Documented By: TOBIAS Imaging Data Radiologist's Impression: Abdomen/Pelvis CT 06/06/25 18:42 Exam(s): CT ABDOMEN + PELVIS With Contrast IV Amt: 90cc opti 320 EXAM: CT Abdomen and Pelvis With Intravenous Contrast CLINICAL HISTORY: Reason for exam: weight loss, hypotension. TECHNIQUE: Axial computed tomography images of the abdomen and pelvis with intravenous contrast. CTDI is 6 years 13 mGy and DLP is 648 mGy-cm. Automated exposure control was utilized for the study. A dose lowering technique was utilized adhering to the principles of ALARA. CONTRAST: Patient received 90cc opti 320 of IV contrast COMPARISON: No relevant prior studies available. FINDINGS: Lung bases: Unremarkable. No mass. No consolidation. ABDOMEN: Liver: Unremarkable. No mass. Gallbladder and bile ducts: Unremarkable. No calcified stones. No ductal dilation. Pancreas: Unremarkable. No mass. No ductal dilation. Spleen: Unremarkable. No splenomegaly. Adrenals: Unremarkable. No mass. Kidneys and ureters: Scattered bilateral renal cortical cysts are seen, the largest one measuring up to 3.4 cm in diameter. Stomach and bowel: Mild sigmoid colonic diverticulosis. No obstruction. No mucosal thickening. PELVIS: Appendix: No findings to suggest acute appendicitis. Bladder: Unremarkable. No mass. Reproductive: Unremarkable as visualized. ABDOMEN and PELVIS: Intraperitoneal space: Unremarkable. No free air. No significant fluid collection. Bones/joints: There is T12 chronic anterior wedge compression deformity. No dislocation. Soft tissues: Unremarkable. Vasculature: Unremarkable. No abdominal aortic aneurysm. Lymph nodes: Unremarkable. No enlarged lymph nodes. IMPRESSION: No neoplastic process seen in the abdomen Electronically signed by: Ian Calderon MD 06/06/25 21:[address] 06/06/25 18:42 Exam(s): CT C SPINE EXAM: CT Cervical Spine Without Intravenous Contrast CLINICAL HISTORY: Reason for exam: trauma. TECHNIQUE: Axial computed tomography images of the cervical spine without intravenous contrast. CTDI is 26 mGy and DLP is 731 mGy-cm. Automated exposure control was utilized for the study. A dose lowering technique was utilized adhering to the principles of ALARA. COMPARISON: No relevant prior studies available. FINDINGS: Vertebrae: Unremarkable. No acute fracture. Discs/spinal canal/neural foramina: No acute findings. No spinal canal stenosis. Moderately degenerative disc disease changes seen in the cervical spine. Soft tissues: Unremarkable. IMPRESSION: Normal cervical spine CT. Electronically signed by: Ian Calderon MD 06/06/25 20:44 PM Chest X-Ray 06/06/25 18:42 Exam: Chest one view portable. Reason for exam: Weakness. Previous studies: 06/04/2019. FINDINGS: Cardiac size remains normal. Emphysematous changes noted. No acute lung infiltrate or edema seen. Old fracture left fourth rib. IMPRESSION: Probable COPD. Otherwise negative for acute disease. Electronically signed by Bimal Bess 06-06-2025 9:[address] 06/06/25 18:42 Exam(s): CT FACIAL Without Contrast EXAM: CT Maxillofacial Without Intravenous Contrast CLINICAL HISTORY: Reason for exam: trauma. TECHNIQUE: Axial computed tomography images of the face without intravenous contrast. CTDI is 26 mGy and DLP is 731 mGy-cm. Automated exposure control was utilized for the study. A dose lowering technique was utilized adhering to the principles of ALARA. COMPARISON: No relevant prior studies available. FINDINGS: Bones/joints: No acute fracture. Soft tissues: Unremarkable. Orbits: Unremarkable. Sinuses: Mucus retention cysts are seen in the right maxillary sinus. No air-fluid levels. IMPRESSION: No acute facial fracture Electronically signed by: Ian Calderon MD 06/06/25 21:[address] 06/06/25 18:42 Exam(s): CT HEAD Without Contrast EXAM: CT Head Without Intravenous Contrast CLINICAL HISTORY: Reason for exam: trauma. TECHNIQUE: Axial computed tomography images of the head/brain without intravenous contrast. CTDI is 36.79 mGy and DLP is 624 mGy-cm. Automated exposure control was utilized for the study. A dose lowering technique was utilized adhering to the principles of ALARA. COMPARISON: No relevant prior studies available. FINDINGS: Brain: Unremarkable. No hemorrhage. No significant white matter disease. No edema. Ventricles: Unremarkable. No ventriculomegaly. Bones/joints: Unremarkable. No acute fracture. Soft tissues: Unremarkable. Sinuses: Unremarkable as visualized. No acute sinusitis. Mastoid air cells: Unremarkable as visualized. No mastoid effusion. IMPRESSION: Normal head/brain CT. Electronically signed by: Ian Calderon MD 06/06/25 20:58 PM Discharge Plan Visit Data Chief Complaint: Neuro Symptoms/Deficit Stated Complaint: PARKINSON DISEASE, EPILEPTIC, COMMUNICATION ED Provider: Melodie Clark Discharge Problem: AMS (altered mental status), Generalized weakness, Weight loss, Recurrent falls, Unable to care for self Patient Disposition: Being Evaluated by Hospitalist Condition: Fair Forms Stand Alone Forms: [facility] [employer] Prescriptions Prescriptions: No Action divalproex 250 mg tablet,delayed release (DR/EC) 250 mg PO UD Rx Instructions: BID, takes at 0300 and 1500 divalproex 500 mg tablet,delayed release (DR/EC) 1,000 mg PO UD Rx Instructions: BID, takes at 0300 and 1500 levetiracetam 250 mg tablet 500 mg PO UD Rx Instructions: BID, takes at 0300 and 1500 ibuprofen 200 mg Tablet 200 mg PO Q6H PRN (Reason: Pain) Excedrin Migraine 250-250-65 mg Tablet 1 tab PO BID PRN (Reason: Headache) Patient Comments: Patient states he normally takes daily. (06/03/19) carbidopa-levodopa 50-200 mg tablet extended release 1 tab PO UD Rx Instructions: Twice daily at 3am and 3pm Referrals Referrals: Faraz Downey DO [Primary Care Provider] -
[2025-06-06 19:14] LABS: Anion Gap 12 (3-11); Blood Urea Nitrogen 52 mg/dl (6-23); Calcium 9.3 mg/dl (8.6-10.3); Carbon Dioxide 33 mmol/L (21-32); Chloride 94 mmol/L (98-107); Glucose 111 mg/dl (70-99(Fasting)); Potassium 3.5 mmol/L (3.5-5.1); Sodium 139 mmol/L (136-145)
[2025-06-06 19:27] LABS: INR 1.2 (0.9-1.1); Prothrombin Time 12.4 Seconds (9.0-12.0)
[2025-06-06 19:30] LABS: Thyroid Stimulating Hormone 1.494 uIu/ml (0.300-4.500)
[2025-06-06 19:33] LABS: Alanine Aminotransferase < 3 U/L (7-52); Albumin Globulin Ratio 1.0 (0.9-2); Albumin Level 3.5 gm/dl (3.4-5.0); Alkaline Phosphatase 72 U/L (34-104); Bilirubin,Total 0.5 mg/dl (0.2-1.0); Globulin 3.4 gm/dl (2.5-4.0); Lipase 73 U/L (11-82); Magnesium 2.3 mg/dl (1.7-2.4); Total Protein 6.9 gm/dl (6.0-8.3)
[2025-06-06 19:35] LABS: Hematocrit (blood only) 36.0 % (42.0-52.0); Hemoglobin 12.0 g/dl (14.0-18.0); Immature Granulocytes # (auto) 0.05 K/uL (0.01-0.20); Immature Granulocytes % (auto) 0.6 %; Mean Corpuscular Hemoglobin 29.0 pg (25.0-34.0); Mean Corpuscular Volume 87.0 fL (80.0-100.0); Platelet Count 96 K/uL (130-400); RDW Standard Deviation 42.9 fL (36.4-46.3); Red Blood Count 4.14 M/uL (4.70-6.10); White Blood Count 8.09 K/ul (4.8-10.8)
[2025-06-06] MEDS: OPTIRAY 320 100ml IV ONE (19:45)
--- NOTE | 2025-06-06 20:46 | CT Scan Report ---
Exam(s): CT C SPINE EXAM: CT Cervical Spine Without Intravenous Contrast CLINICAL HISTORY: Reason for exam: trauma. TECHNIQUE: Axial computed tomography images of the cervical spine without intravenous contrast. CTDI is 26 mGy and DLP is 731 mGy-cm. Automated exposure control was utilized for the study. A dose lowering technique was utilized adhering to the principles of ALARA. COMPARISON: No relevant prior studies available. FINDINGS: Vertebrae: Unremarkable. No acute fracture. Discs/spinal canal/neural foramina: No acute findings. No spinal canal stenosis. Moderately degenerative disc disease changes seen in the cervical spine. Soft tissues: Unremarkable. IMPRESSION: Normal cervical spine CT. Electronically signed by: Ian Calderon MD 06/06/25 20:44 PM
--- NOTE | 2025-06-06 20:58 | CT Scan Report ---
Exam(s): CT HEAD Without Contrast EXAM: CT Head Without Intravenous Contrast CLINICAL HISTORY: Reason for exam: trauma. TECHNIQUE: Axial computed tomography images of the head/brain without intravenous contrast. CTDI is 36.79 mGy and DLP is 624 mGy-cm. Automated exposure control was utilized for the study. A dose lowering technique was utilized adhering to the principles of ALARA. COMPARISON: No relevant prior studies available. FINDINGS: Brain: Unremarkable. No hemorrhage. No significant white matter disease. No edema. Ventricles: Unremarkable. No ventriculomegaly. Bones/joints: Unremarkable. No acute fracture. Soft tissues: Unremarkable. Sinuses: Unremarkable as visualized. No acute sinusitis. Mastoid air cells: Unremarkable as visualized. No mastoid effusion. IMPRESSION: Normal head/brain CT. Electronically signed by: Ian Calderon MD 06/06/25 20:58 PM
--- NOTE | 2025-06-06 21:02 | CT Scan Report ---
Exam(s): CT FACIAL Without Contrast EXAM: CT Maxillofacial Without Intravenous Contrast CLINICAL HISTORY: Reason for exam: trauma. TECHNIQUE: Axial computed tomography images of the face without intravenous contrast. CTDI is 26 mGy and DLP is 731 mGy-cm. Automated exposure control was utilized for the study. A dose lowering technique was utilized adhering to the principles of ALARA. COMPARISON: No relevant prior studies available. FINDINGS: Bones/joints: No acute fracture. Soft tissues: Unremarkable. Orbits: Unremarkable. Sinuses: Mucus retention cysts are seen in the right maxillary sinus. No air-fluid levels. IMPRESSION: No acute facial fracture Electronically signed by: Ian Calderon MD 06/06/25 21:01 PM
--- NOTE | 2025-06-06 21:05 | CT Scan Report ---
Exam(s): CT ABDOMEN + PELVIS With Contrast IV Amt: 90cc opti 320 EXAM: CT Abdomen and Pelvis With Intravenous Contrast CLINICAL HISTORY: Reason for exam: weight loss, hypotension. TECHNIQUE: Axial computed tomography images of the abdomen and pelvis with intravenous contrast. CTDI is 6 years 13 mGy and DLP is 648 mGy-cm. Automated exposure control was utilized for the study. A dose lowering technique was utilized adhering to the principles of ALARA. CONTRAST: Patient received 90cc opti 320 of IV contrast COMPARISON: No relevant prior studies available. FINDINGS: Lung bases: Unremarkable. No mass. No consolidation. ABDOMEN: Liver: Unremarkable. No mass. Gallbladder and bile ducts: Unremarkable. No calcified stones. No ductal dilation. Pancreas: Unremarkable. No mass. No ductal dilation. Spleen: Unremarkable. No splenomegaly. Adrenals: Unremarkable. No mass. Kidneys and ureters: Scattered bilateral renal cortical cysts are seen, the largest one measuring up to 3.4 cm in diameter. Stomach and bowel: Mild sigmoid colonic diverticulosis. No obstruction. No mucosal thickening. PELVIS: Appendix: No findings to suggest acute appendicitis. Bladder: Unremarkable. No mass. Reproductive: Unremarkable as visualized. ABDOMEN and PELVIS: Intraperitoneal space: Unremarkable. No free air. No significant fluid collection. Bones/joints: There is T12 chronic anterior wedge compression deformity. No dislocation. Soft tissues: Unremarkable. Vasculature: Unremarkable. No abdominal aortic aneurysm. Lymph nodes: Unremarkable. No enlarged lymph nodes. IMPRESSION: No neoplastic process seen in the abdomen Electronically signed by: Ian Calderon MD 06/06/25 21:04 PM
--- NOTE | 2025-06-06 21:27 | XRay Report ---
Exam: Chest one view portable. Reason for exam: Weakness. Previous studies: 06/04/2019. FINDINGS: Cardiac size remains normal. Emphysematous changes noted. No acute lung infiltrate or edema seen. Old fracture left fourth rib. IMPRESSION: Probable COPD. Otherwise negative for acute disease. Electronically signed by Bimal Bess 06-06-2025 9:26 PM
[2025-06-06] MEDS: LORazepam 1 MG/1 ML SYR ED Inj Use IV STA (21:53)
[2025-06-06 23:21] LABS: Appearance Urine Clear (Clear); Bacteria Urine Automated 2+ (None Seen); Epithelial Cell Urine Auto 0-2 /hpf (0-2); Glucose Urine UA Negative (Negative); RBC Urine Automated 0-2 /hpf (0-2); WBC Urine Automated 0-5 /hpf (0-5)
[2025-06-07] MEDS ORDERED: NITROGLYCERIN SL 0.4 MG/TAB TAB SL PRN (03:02)
[2025-06-07] MEDS: VALPROATE SOD 500 MG in DEXTROSE 5% 50 ML IV STA (03:53)
[2025-06-07] MEDS: CARBIDOPA/LEVODOPA 50/200MG EXT REL TAB PO SCH (05:04)
[2025-06-07] MEDS: D5W AND 1/2NSS 1,000 ML IV SCH (05:30)
[2025-06-07 06:24] LABS: Folate (Folic Acid),Ser orPlas 3.08 ng/ml (>5.38)
[2025-06-07 06:25] LABS: Vitamin B12 633.0 pg/ml (180-914)
--- NOTE | 2025-06-07 06:48 | History & Physical Report ---
Date of Service June 07, 2025 Assessment & Plan (1) AMS (altered mental status): Plan: 60-year-old male with past medical history significant for generalized nonconvulsive epilepsy, juvenile seizure disorder, cephalgia, migraine variant, Parkinson disease, history of tobacco abuse, history of mixed action and resting tremor was brought in because of confusion. As per ER patient's friend/advocate brought the patient to the hospital. Patient seems falling at home. Seems friend came to know about patient condition recently and became concerned. Friend also took the patient recently to neurology on 06/01/2025. As patient is getting confused at times neurology stopped trihexyphenidyl. Not able to reach his friend currently. His phone number is not on the chart. Called his sister. Sister states on Friday she and her daughter went to check on the patient. Patient seemed very confused. Was trying to talk but not able to speak much. He was speaking 1 or 2 words per sister. He seemed very weak. Seemed not eating. Patient was walking holding furniture. There is no signs of diarrhea or nausea or vomiting per sister. Currently in ER patient received Ativan and Zyprexa. He was trying to answer but not able to speak. Mostly drowsy. Altered mental status Falls CT head, face CT, CT cervical spine: Chest x-ray, CT abdomen pelvis no acute findings No leukocytosis. B12 633 B1 pending Urine pending Folate 3.08 will replace TSH normal at 1.4 UA negative for nitrate and WBC but shows 2+ bacteria- will check cultures Valproic acid level Keppra level pending Will check ammonia levels Will follow MRI scan of the head Possible dehydration Continue fluids Neuro consult for further recommendation History of seizures Continue home Keppra and divalproex If not able to take p.o. will change to IV IV Ativan as needed for breakthrough seizures Await neurology consult Thrombocytopenia new Will follow labs History of Parkinson's Continue carbidopa levodopa DVT prophylaxis Heparin subcu Monitor platelets Disposition Telemetry Full code for now Admission and Anticipated Discharge Date Admission Date: June 07, 2025 History of Present Illness Chief Complaint: Confusion Primary Care Provider: Faraz Downey DO 60-year-old male with past medical history significant for generalized nonconvulsive epilepsy, juvenile seizure disorder, cephalgia, migraine variant, Parkinson disease, history of tobacco abuse, history of mixed action and resting tremor was brought in because of confusion. As per ER patient's friend/advocate brought the patient to the hospital. Patient seems falling at home. Seems friend came to know about patient condition recently and became concerned. Friend also took the patient recently to neurology on 06/01/2025. As patient is getting confused at times neurology stopped trihexyphenidyl. Not able to reach his friend currently. His phone number is not on the chart. Called his sister. Sister states on Friday she and her daughter went to check on the patient. Patient seemed very confused. Was trying to talk but not able to speak much. He was speaking 1 or 2 words per sister. He seemed very weak. Seemed not eating. Patient was walking holding furniture. There is no signs of diarrhea or nausea or vomiting per sister. Currently in ER patient received Ativan and Zyprexa. He was trying to answer but not able to speak. Mostly drowsy. Past medical history. As mentioned above Past surgical history. Colonoscopy. Reconstruction of nose. Social history. Smoked 0.3 packs a day. Alcohol rarely. No drug use. Family history. Father had diabetes. Brother has asthma. Diabetes. Maternal grandmother had hemolytic anemia. Paternal grandmother had colon cancer. Allergies Allergy/AdvReac Type Severity Reaction Status Date / Time mushroom Allergy Unknown "ENDED UP Verified 10/09/24 04:03 IN HOSPITAL" Home Medications Medication Instructions Recorded Confirmed Type carbidopa ER 50 mg-levodopa 200 mg 1 tab PO UD 06/07/25 06/07/25 History tablet,extended release divalproex 250 mg tablet,delayed 250 mg PO BID 06/07/25 06/07/25 History release divalproex 500 mg tablet,delayed 1,000 mg PO BID 06/07/25 06/07/25 History release levetiracetam 250 mg tablet 500 mg PO BID 06/07/25 06/07/25 History Past Med/Surg History Problem List (Updated 06/06/25 @ 23:07 by Melodie Clark DO) Unable to care for self (Acute) Recurrent falls (Acute) Weight loss (Acute) Generalized weakness (Acute) AMS (altered mental status) (Acute) Syncope and collapse Seizure-like activity (Acute) Grand mal seizure (Acute) Seizure (Acute) Medical History Parkinson disease Epilepsy Surgical History No significant past surgical history Family History Other Lung cancer Social History Smoking Status: Never smoker Tobacco Type: Cigarettes Cigarettes Per Day: 5-6; Second Hand Exposure: No; Do You Dip or Chew Tobacco: No; Hx Alcohol Use: Yes Alcohol type: beer Hx Substance Use: No Preferred Language: Bruneian Communication Ability: Effective 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 Head- atraumatic Eyes- PERRL. ENT- oropharynx clear Neck- supple, no JVD Lungs- clear to auscultation no wheezing or crackles Heart- regular rhythm; no murmur, no gallop. Abdomen- normal bowel sounds, soft, nontender, no distension Extremities- no pretibial edema, no erythema seen Neuro- Drowsy; PERRL, no facial palsy; minimal movement of extremities Results & Data Results & Data Vital Signs (Past 12 Hours) Vital Signs Temp Pulse Pulse Resp BP BP Pulse Ox 06/07/25 02:32 92 H 06/06/25 22:31 85 06/06/25 22:00 77 16 143/72 H 06/06/25 20:00 82 16 158/96 H 06/06/25 19:10 96 06/06/25 18:47 92 H 37 H 124/73 97 06/06/25 18:25 90 06/06/25 18:02 36.6 C 114 H 20 78/55 L 95 O2 Del Method 06/07/25 02:32 06/06/25 22:31 06/06/25 22:00 06/06/25 20:00 06/06/25 19:10 Room Air 06/06/25 18:47 Room Air 06/06/25 18:25 06/06/25 18:02 Room Air Diagnostic Findings Laboratory Results WBC 8.09 K/ul (4.8-10.8) 06/06/25 18: RBC 4.14 M/uL (4.70-6.10) L 06/06/25 18: Hgb 12.0 g/dl (14.0-18.0) L 06/06/25 18: POC Hgb 13.3 g/dl (14.0-18.0) L 06/06/25 18: Hct 36.0 % (42.0-52.0) L 06/06/25 18: POC Hct 39 % (42-52) L 06/06/25 18: MCV 87.0 fL (80.0-100.0) 06/06/25 18: MCH 29.0 pg (25.0-34.0) 06/06/25 18: MCHC 33.3 g/dL (32.0-36.0) 06/06/25 18: RDW Std Deviation 42.9 fL (36.4-46.3) 06/06/25 18: RDW Coeff of Alley 13.4 % (11.5-14.5) 06/06/25 18: Plt Count 96 K/uL (130-400) L 06/06/25 18: MPV 11.4 fL (9.4-12.4) 06/06/25 18: Immature Gran % (Auto) 0.6 % 06/06/25 18: Neut % (Auto) 68.3 % 06/06/25 18: Lymph % (Auto) 20.3 % 06/06/25 18: [place] % (Auto) 9.0 % 06/06/25 18: Eos % (Auto) 1.4 % 06/06/25 18: Baso % (Auto) 0.4 % 06/06/25 18: Neut # (Auto) 5.53 K/uL (1.40-6.50) 06/06/25 18: Lymph # (Auto) 1.64 K/uL (1.20-3.40) 06/06/25 18: [place] # (Auto) 0.73 K/uL (0.11-0.59) H 06/06/25 18: Eos # (Auto) 0.11 K/uL (0.00-0.50) 06/06/25 18:29 Baso # (Auto) 0.03 K/uL (0.00-0.20) 06/06/25 18: Immature Gran # (Auto) 0.05 K/uL (0.01-0.20) 06/06/25 18:29 Platelet Estimate Decreased (Normal) L 06/06/25 18: PT 12.4 Seconds (9.0-12.0) H 06/06/25 18: INR 1.2 (0.9-1.1) H 06/06/25 18:29 POC Sodium 138 mmol/L (135-144) 06/06/25 18:36 Sodium 139 mmol/L (136-145) 06/06/25 18: POC Potassium 3.3 mmol/L (3.3-5.0) 06/06/25 18:36 Potassium 3.5 mmol/L (3.5-5.1) 06/06/25 18: POC Chloride 95 mmol/L (101-112) L 06/06/25 18:36 Chloride 94 mmol/L (98-107) L 06/06/25 18:29 Carbon Dioxide 33 mmol/L (21-32) H 06/06/25 18: POC Total CO2 32 mmol/L (24-31) H 06/06/25 18:36 Anion Gap 12 (3-11) H 06/06/25 18:29 POC Anion Gap 15.0 mmol/L (16-25) L 06/06/25 18:36 POC BUN 47 mg/dl (7-18) H 06/06/25 18:36 BUN 52 mg/dl (6-23) H 06/06/25 18:29 Creatinine 1.19 mg/dl (0.6-1.4) 06/06/25 18: POC Creatinine 1.2 mg/dl (0.6-1.3) 06/06/25 18: Est Cr Clr Drug Dosing Not Reportable 06/06/25 18:29 eGFR 69.06 06/06/25 18:29 BUN/Creatinine Ratio 43.7 (10-20) H 06/06/25 18:29 Glucose 111 mg/dl (70-99(Fasting)) H 06/06/25 18:29 POC Glucose (other) 109 mg/dl (70-99) H 06/06/25 18:36 Calcium 9.3 mg/dl (8.6-10.3) 06/06/25 18:29 POC Ioniz Calcium Omar 1.09 mmol/l (1.12-1.32) L 06/06/25 18:36 Magnesium 2.3 mg/dl (1.7-2.4) 06/06/25 18: Total Bilirubin 0.5 mg/dl (0.2-1.0) 06/06/25 18:29 AST 11 U/L (13-39) L 06/06/25 18:29 ALT < 3 U/L (7-52) L 06/06/25 18: Alkaline Phosphatase 72 U/L (34-104) 06/06/25 18: Troponin I High Sens 8.2 pg/ml (0-20) 06/06/25 18: Total Protein 6.9 gm/dl (6.0-8.3) 06/06/25 18:29 Albumin 3.5 gm/dl (3.4-5.0) 06/06/25 18: Globulin 3.4 gm/dl (2.5-4.0) 06/06/25 18: Albumin/Globulin Ratio 1.0 (0.9-2) 06/06/25 18:29 Lipase 73 U/L (11-82) 06/06/25 18: Vitamin B12 633 pg/ml (180-914) 06/07/25 04:27 Folate 3.08 ng/ml (>5.38) L 06/07/25 04:27 TSH 1.494 uIu/ml (0.300-4.500) 06/06/25 18:29 Urine Color Dark Yellow 06/06/25 22:52 Urine Appearance Clear (Clear) 06/06/25 22: Urine pH 6.0 (4.5-7.5) 06/06/25 22:52 Ur Specific [place] 1.026 (1.000-1.030) 06/06/25 22:52 Urine Protein Trace (Negative) H 06/06/25 22:52 Urine Glucose (UA) Negative (Negative) 06/06/25 22:52 Urine Ketones 1+ (Negative) H 06/06/25 22:52 Urine Blood Negative (Negative) 06/06/25 22:52 Urine Nitrite Negative (Negative) 06/06/25 22:52 Urine Bilirubin Negative (Negative) 06/06/25 22:52 Urine Urobilinogen Negative (Negative) 06/06/25 22:52 Ur Leukocyte Esterase Trace (Negative) H 06/06/25 22:52 Urine WBC (Auto) 0-5 /hpf (0-5) 06/06/25 22:52 Urine RBC (Auto) 0-2 /hpf (0-2) 06/06/25 22:52 U Hyaline Cast (Auto) 3-5 /lpf (0-2) H 06/06/25 22:52 U Epithel Cells (Auto) 0-2 /hpf (0-2) 06/06/25 22:52 Urine Bacteria (Auto) 2+ (None Seen) H 06/06/25 22:52 Urine Comment 06/06/25 22:52 Valproic Acid 102 mcg/ml (50-100) H 06/06/25 18:29 Impressions Abdomen/Pelvis CT 06/06/25 18:42 Exam(s): CT ABDOMEN + PELVIS With Contrast IV Amt: 90cc opti 320 EXAM: CT Abdomen and Pelvis With Intravenous Contrast CLINICAL HISTORY: Reason for exam: weight loss, hypotension. TECHNIQUE: Axial computed tomography images of the abdomen and pelvis with intravenous contrast. CTDI is 6 years 13 mGy and DLP is 648 mGy-cm. Automated exposure control was utilized for the study. A dose lowering technique was utilized adhering to the principles of ALARA. CONTRAST: Patient received 90cc opti 320 of IV contrast COMPARISON: No relevant prior studies available. FINDINGS: Lung bases: Unremarkable. No mass. No consolidation. ABDOMEN: Liver: Unremarkable. No mass. Gallbladder and bile ducts: Unremarkable. No calcified stones. No ductal dilation. Pancreas: Unremarkable. No mass. No ductal dilation. Spleen: Unremarkable. No splenomegaly. Adrenals: Unremarkable. No mass. Kidneys and ureters: Scattered bilateral renal cortical cysts are seen, the largest one measuring up to 3.4 cm in diameter. Stomach and bowel: Mild sigmoid colonic diverticulosis. No obstruction. No mucosal thickening. PELVIS: Appendix: No findings to suggest acute appendicitis. Bladder: Unremarkable. No mass. Reproductive: Unremarkable as visualized. ABDOMEN and PELVIS: Intraperitoneal space: Unremarkable. No free air. No significant fluid collection. Bones/joints: There is T12 chronic anterior wedge compression deformity. No dislocation. Soft tissues: Unremarkable. Vasculature: Unremarkable. No abdominal aortic aneurysm. Lymph nodes: Unremarkable. No enlarged lymph nodes. IMPRESSION: No neoplastic process seen in the abdomen Electronically signed by: Ian Calderon MD 06/06/25 21:[address] 06/06/25 18:42 Exam(s): CT C SPINE EXAM: CT Cervical Spine Without Intravenous Contrast CLINICAL HISTORY: Reason for exam: trauma. TECHNIQUE: Axial computed tomography images of the cervical spine without intravenous contrast. CTDI is 26 mGy and DLP is 731 mGy-cm. Automated exposure control was utilized for the study. A dose lowering technique was utilized adhering to the principles of ALARA. COMPARISON: No relevant prior studies available. FINDINGS: Vertebrae: Unremarkable. No acute fracture. Discs/spinal canal/neural foramina: No acute findings. No spinal canal stenosis. Moderately degenerative disc disease changes seen in the cervical spine. Soft tissues: Unremarkable. IMPRESSION: Normal cervical spine CT. Electronically signed by: Ian Calderon MD 06/06/25 20:44 PM Chest X-Ray 06/06/25 18:42 Exam: Chest one view portable. Reason for exam: Weakness. Previous studies: 06/04/2019. FINDINGS: Cardiac size remains normal. Emphysematous changes noted. No acute lung infiltrate or edema seen. Old fracture left fourth rib. IMPRESSION: Probable COPD. Otherwise negative for acute disease. Electronically signed by Bimal Bess 06-06-2025 9:[address] 06/06/25 18:42 Exam(s): CT FACIAL Without Contrast EXAM: CT Maxillofacial Without Intravenous Contrast CLINICAL HISTORY: Reason for exam: trauma. TECHNIQUE: Axial computed tomography images of the face without intravenous contrast. CTDI is 26 mGy and DLP is 731 mGy-cm. Automated exposure control was utilized for the study. A dose lowering technique was utilized adhering to the principles of ALARA. COMPARISON: No relevant prior studies available. FINDINGS: Bones/joints: No acute fracture. Soft tissues: Unremarkable. Orbits: Unremarkable. Sinuses: Mucus retention cysts are seen in the right maxillary sinus. No air-fluid levels. IMPRESSION: No acute facial fracture Electronically signed by: Ian Calderon MD 06/06/25 21:[address] 06/06/25 18:42 Exam(s): CT HEAD Without Contrast EXAM: CT Head Without Intravenous Contrast CLINICAL HISTORY: Reason for exam: trauma. TECHNIQUE: Axial computed tomography images of the head/brain without intravenous contrast. CTDI is 36.79 mGy and DLP is 624 mGy-cm. Automated exposure control was utilized for the study. A dose lowering technique was utilized adhering to the principles of ALARA. COMPARISON: No relevant prior studies available. FINDINGS: Brain: Unremarkable. No hemorrhage. No significant white matter disease. No edema. Ventricles: Unremarkable. No ventriculomegaly. Bones/joints: Unremarkable. No acute fracture. Soft tissues: Unremarkable. Sinuses: Unremarkable as visualized. No acute sinusitis. Mastoid air cells: Unremarkable as visualized. No mastoid effusion. IMPRESSION: Normal head/brain CT. Electronically signed by: Ian Calderon MD 06/06/25 20:58 PM ECG Additional Comments: ECG. Normal sinus rhythm rate of 89. Minimal voltage cardia for LVH. QTc 413. Code Status & VTE Plan VTE Prophylaxis Plan VTE Prophylaxis will be ordered: Yes
[2025-06-07 07:37] LABS: Hematocrit (blood only) 28.5 % (42.0-52.0); Hemoglobin 9.6 g/dl (14.0-18.0); Immature Granulocytes # (auto) 0.04 K/uL (0.01-0.20); Immature Granulocytes % (auto) 0.7 %; Mean Corpuscular Hemoglobin 29.1 pg (25.0-34.0); Mean Corpuscular Volume 86.4 fL (80.0-100.0); Platelet Count 72 K/uL (130-400); RDW Standard Deviation 42.3 fL (36.4-46.3); Red Blood Count 3.30 M/uL (4.70-6.10); White Blood Count 6.10 K/ul (4.8-10.8)
[2025-06-07] MEDS: FOLIC ACID 1 MG in SYRINGE 9.8 ML IV STA (07:45)
[2025-06-07 07:55] LABS: Anion Gap 8.0 (3-11); Blood Urea Nitrogen 42.0 mg/dl (6-23); Calcium 8.5 mg/dl (8.6-10.3); Carbon Dioxide 32.0 mmol/L (21-32); Chloride 100.0 mmol/L (98-107); Creatinine Clr Calc Pharmacy 122.0 ml/min; Glucose 130.0 mg/dl (70-99(Fasting)); Magnesium 1.8 mg/dl (1.7-2.4); Potassium 3.0 mmol/L (3.5-5.1); Sodium 140.0 mmol/L (136-145)
[2025-06-07] MEDS: DIVALPROEX DELAY RELEASE 250 MG TABEC PO SCH (08:57)
[2025-06-07] MEDS: DIVALPROEX DELAY RELEASE 500 MG TAB PO SCH (08:59)
[2025-06-07] MEDS: levETIRAcetam 500 MG TAB PO SCH (09:00)
[2025-06-07] MEDS: GADOBUTROL 7.5ML VIAL IV ONE (10:14)
[2025-06-07] MEDS: POTASSIUM CHLORIDE 20 MEQ/15 ML UDC PO SCH (10:48)
--- NOTE | 2025-06-07 11:03 | Magnetic Resonance Report ---
MR brain wo/w con HISTORY: 60 years-old Male confusion acutely altered mental status like activity COMPARISON: Head CT 06/06/2025, brain MR 10/09/2024 TECHNIQUE: Multiplanar multisequence MRI of the brain was obtained with and without IV contrast FINDINGS: Study is motion degraded. No restricted diffusion to suggest an acute or subacute infarct. Midline st ructures are unremarkable. Degenerative changes of the cervical spine. No acute intracranial hemorrha ge, midline shift, abnormal extra-axial collection, hydrocephalus or intra-axial mass. Involutional c hanges of the brain parenchyma. Minimal T2/FLAIR hyperintense foci within the white matter are nonspe cific and may represent early changes of chronic microvascular ischemic disease. Cerebral venous sinuses and major arterial flow voids appear patent as visualized. Mild mucosal thick ening of the right maxillary sinus. Trace mastoid effusions are suggested. No abnormal enhancement. IMPRESSION: 1. Motion degraded exam without acute intracranial abnormality identified. 2. No acute infarct. 3. No abnormal enhancement. ACT 112: Negative or not required by law. The above report was generated using voice recognition software. It may contain grammatical, syntax o r spelling errors. Electronically signed by: Seb Williamson M.D. 06/07/2025 11:02 AM
--- NOTE | 2025-06-07 11:47 | Electrocardiogram Report ---
Test Reason : Blood Pressure : */* mmHG Vent. Rate : 89 BPM Atrial Rate : 89 BPM P-R Int : 126 ms QRS Dur : 82 ms QT Int : 340 ms P-R-T Axes : 60 -22 59 degrees QTcB Int : 413 ms Normal sinus rhythm Minimal voltage criteria for LVH, may be normal variant Borderline ECG Confirmed by Peng Martel ([id number]) on 06/07/2025 11:47:41 AM Referred By: REFERRED SELF Confirmed By: Peng Martel
--- NOTE | 2025-06-07 14:12 | Neurology Consultation ---
Date of Consultation June 07, 2025 Assessment & Plan (1) Metabolic encephalopathy: Recommend continue to hold trihexyphenidyl Recommend hold Sinemet at this time and continue to monitor mentation Recommend psychiatry consultation Continue frequent neurological assessments Obtain stat CT brain without contrast for any acute neurological decline Continue to monitor/control blood pressure & blood glucose Continue metabolic workup Continue to monitor for s/s of infection Continue to monitor renal and hepatic function, keep euvolemic Metabolic workup should include hgbA1c, fasting lipids, homocysteine, B12, methylmalonic acid, TSH Continue Keppra and valproic acid Provide seizure precautions Utilize benzodiazepines emergently for any breakthrough clinical seizure like activity Recommend continue fall precautions & delirium precautions Recommend therapy eval and tx when clinically improved VTE prophylaxis Telehealth Consultation Telehealth Information Telehealth Information: I performed this visit using a real-time telehealth connection between my location and the patients originating location ([facility]). After connecting through interactive tele-video, patient was identified by name and date of and/or wristband check.Patient (or authorized healthcare motor vehicle representative) was informed that this was a telemedicine visit and it was being conducted confidentially over secure lines. My office door was closed and no one else was present in the room with me.Patient (or authorized healthcare motor vehicle representative) provided consent to proceed with the visit, expressed an understanding of privacy and security of the telemedicine visit, and gave permission to have a hospital motor vehicle representative in the room in order to assist with the visit and to conduct portions of the visit, as needed. I informed the patient (or authorized healthcare motor vehicle representative) that I reviewed their record and presented the opportunity for them to ask any questions regarding the visit today. The patient agreed to participate. History of Present Illness Reason for Consultation: Confusion Requesting Physician: Dr Blanton Attending Physician: Arpita Blanton MD History of Present Illness 60yo male with hx of seizure and parkinson's presented due to concerns of confusion. He was recently seen by neurology 06/01 at that time recommended discontinue trihexyphenidyl due to changes in cognition. His friend brought him to the hospital and reported worsened confusion and falls. He has undergone CT scan of brain and cervical spine as well as MRI brain all without noted acute pathology. I have performed televideo consultation. He is awake but does not answer questions appropriately or follow commands. Neurological exam is non lateralizing/nonfocal in terms of motor strength as he demonstrates spontaneous movement in all extremities. I do not appreciate facial asymmetry. Allergies Allergy/AdvReac Type Severity Reaction Status Date / Time mushroom Allergy Unknown "ENDED UP Verified 10/09/24 04:03 IN HOSPITAL" Home Medications Medication Instructions Recorded Confirmed Type carbidopa ER 50 mg-levodopa 200 mg 1 tab PO UD 06/07/25 06/07/25 History tablet,extended release divalproex 250 mg tablet,delayed 250 mg PO BID 06/07/25 06/07/25 History release divalproex 500 mg tablet,delayed 1,000 mg PO BID 06/07/25 06/07/25 History release levetiracetam 250 mg tablet 500 mg PO BID 06/07/25 06/07/25 History Patient History Medical History Parkinson disease Epilepsy Surgical History No significant past surgical history Family History Other Lung cancer Social History Smoking Status: Former smoker Tobacco Type: Cigarettes Cigarettes Per Day: 5-6; Second Hand Exposure: No; Do You Dip or Chew Tobacco: No; Hx Alcohol Use: No Hx Substance Use: No Preferred Language: Slovenian Communication Ability: confused Pallet Rectifier Required: No Beliefs That Will Affect Care: None marital status: Single Current Living Situation: Alone current occupational status: employed Other Information That Helps Us Care for You: No Feels Safe at Home: Yes Safety Concerns: Feels Safe At This Time Assistive Devices: Brace/Splint/Immobilizer Physical Exam Neurological Examination: Mental Status: Awake Will not answer questions appropriately or follow commands CN testing: I: Deferred II: Difficult to accurately assess III/IV/: No evidence of gaze preference, hippus, nystagmus or roving eye movements V: Facial sensation is unable to be reliably assessed VII: Facial movements appear without evidence of asymmetry VIII: Hearing appears grossly intact to loud voice bilaterally IX/X: Palate is unable to be accurately visualized XI: Shoulder shrug appears symmetric/ grossly intact bilaterally XII: Tongue protrudes midline without evidence of biting Motor exam: Strength appears grossly intact in all extremities Tone: Unable to accurately assess via telemedicine Sensory: Sensation is unable to be reliably assessed Coordination: Deferred Reflexes: Unable to accurately assess via telemedicine Gait: Deferred Results & Data Vital Signs (Past 12 Hours) Vital Signs Temp Pulse Pulse Resp BP Pulse Ox O2 Del Method 06/07/25 13:41 78 18 127/90 95 Room Air 06/07/25 12:02 90 18 137/66 Room Air 06/07/25 10:30 94 H 18 138/78 96 Room Air 06/07/25 07:43 80 06/07/25 07:43 36.3 C L 95 H 18 121/86 96 Room Air 06/07/25 06:00 78 18 129/61 99 Room Air 06/07/25 03:02 80 18 92 Room Air 06/07/25 02:32 92 H Laboratory Results Abnormal lab results 06/06/25 06/06/25 06/06/25 Range/Units 18:29 18:36 22:52 RBC 4.14 L (4.70-6.10) M/uL Hgb 12.0 L (14.0-18.0) g/dl POC Hgb 13.3 L (14.0-18.0) g/dl Hct 36.0 L (42.0-52.0) % POC Hct 39 L (42-52) % Plt Count 96 L (130-400) K/uL Pepin # (Auto) 0.73 H (0.11-0.59) K/uL Platelet Estimate Decreased L (Normal) PT 12.4 H (9.0-12.0) Seconds INR 1.2 H (0.9-1.1) Potassium (3.5-5.1) mmol/L POC Chloride 95 L (101-112) mmol/L Chloride 94 L (98-107) mmol/L Carbon Dioxide 33 H (21-32) mmol/L POC Total CO2 32 H (24-31) mmol/L Anion Gap 12 H (3-11) POC Anion Gap 15.0 L (16-25) mmol/L POC BUN 47 H (7-18) mg/dl BUN 52 H (6-23) mg/dl BUN/Creatinine Ratio 43.7 H (10-20) Glucose 111 H (70-99(Fasting)) mg/dl POC Glucose (other) 109 H (70-99) mg/dl Calcium (8.6-10.3) mg/dl POC Ioniz Calcium Omar 1.09 L (1.12-1.32) mmol/l AST 11 L (13-39) U/L ALT < 3 L (7-52) U/L Folate (>5.38) ng/ml Urine Protein Trace H (Negative) Urine Ketones 1+ H (Negative) Ur Leukocyte Esterase Trace H (Negative) U Hyaline Cast (Auto) 3-5 H (0-2) /lpf Urine Bacteria (Auto) 2+ H (None Seen) Valproic Acid 102 H (50-100) mcg/ml 06/07/25 06/07/25 Range/Units 04:27 07:21 RBC 3.30 L (4.70-6.10) M/uL Hgb 9.6 L (14.0-18.0) g/dl POC Hgb (14.0-18.0) g/dl Hct 28.5 L (42.0-52.0) % POC Hct (42-52) % Plt Count 72 L (130-400) K/uL Pepin # (Auto) 0.76 H (0.11-0.59) K/uL Platelet Estimate (Normal) PT (9.0-12.0) Seconds INR (0.9-1.1) Potassium 3.0 L (3.5-5.1) mmol/L POC Chloride (101-112) mmol/L Chloride (98-107) mmol/L Carbon Dioxide (21-32) mmol/L POC Total CO2 (24-31) mmol/L Anion Gap (3-11) POC Anion Gap (16-25) mmol/L POC BUN (7-18) mg/dl BUN 42 H (6-23) mg/dl BUN/Creatinine Ratio 68.9 H (10-20) Glucose 130 H (70-99(Fasting)) mg/dl POC Glucose (other) (70-99) mg/dl Calcium 8.5 L (8.6-10.3) mg/dl POC Ioniz Calcium Omar (1.12-1.32) mmol/l AST (13-39) U/L ALT (7-52) U/L Folate 3.08 L (>5.38) ng/ml Urine Protein (Negative) Urine Ketones (Negative) Ur Leukocyte Esterase (Negative) U Hyaline Cast (Auto) (0-2) /lpf Urine Bacteria (Auto) (None Seen) Valproic Acid (50-100) mcg/ml Diagnostic Findings Abdomen/Pelvis CT 06/06/25 18:42 Exam(s): CT ABDOMEN + PELVIS With Contrast IV Amt: 90cc opti 320 EXAM: CT Abdomen and Pelvis With Intravenous Contrast CLINICAL HISTORY: Reason for exam: weight loss, hypotension. TECHNIQUE: Axial computed tomography images of the abdomen and pelvis with intravenous contrast. CTDI is 6 years 13 mGy and DLP is 648 mGy-cm. Automated exposure control was utilized for the study. A dose lowering technique was utilized adhering to the principles of ALARA. CONTRAST: Patient received 90cc opti 320 of IV contrast COMPARISON: No relevant prior studies available. FINDINGS: Lung bases: Unremarkable. No mass. No consolidation. ABDOMEN: Liver: Unremarkable. No mass. Gallbladder and bile ducts: Unremarkable. No calcified stones. No ductal dilation. Pancreas: Unremarkable. No mass. No ductal dilation. Spleen: Unremarkable. No splenomegaly. Adrenals: Unremarkable. No mass. Kidneys and ureters: Scattered bilateral renal cortical cysts are seen, the largest one measuring up to 3.4 cm in diameter. Stomach and bowel: Mild sigmoid colonic diverticulosis. No obstruction. No mucosal thickening. PELVIS: Appendix: No findings to suggest acute appendicitis. Bladder: Unremarkable. No mass. Reproductive: Unremarkable as visualized. ABDOMEN and PELVIS: Intraperitoneal space: Unremarkable. No free air. No significant fluid collection. Bones/joints: There is T12 chronic anterior wedge compression deformity. No dislocation. Soft tissues: Unremarkable. Vasculature: Unremarkable. No abdominal aortic aneurysm. Lymph nodes: Unremarkable. No enlarged lymph nodes. IMPRESSION: No neoplastic process seen in the abdomen Electronically signed by: Ian Calderon MD 06/06/25 21:[address] 06/06/25 18:42 Exam(s): CT C SPINE EXAM: CT Cervical Spine Without Intravenous Contrast CLINICAL HISTORY: Reason for exam: trauma. TECHNIQUE: Axial computed tomography images of the cervical spine without intravenous contrast. CTDI is 26 mGy and DLP is 731 mGy-cm. Automated exposure control was utilized for the study. A dose lowering technique was utilized adhering to the principles of ALARA. COMPARISON: No relevant prior studies available. FINDINGS: Vertebrae: Unremarkable. No acute fracture. Discs/spinal canal/neural foramina: No acute findings. No spinal canal stenosis. Moderately degenerative disc disease changes seen in the cervical spine. Soft tissues: Unremarkable. IMPRESSION: Normal cervical spine CT. Electronically signed by: Ian Calderon MD 06/06/25 20:44 PM Chest X-Ray 06/06/25 18:42 Exam: Chest one view portable. Reason for exam: Weakness. Previous studies: 06/04/2019. FINDINGS: Cardiac size remains normal. Emphysematous changes noted. No acute lung infiltrate or edema seen. Old fracture left fourth rib. IMPRESSION: Probable COPD. Otherwise negative for acute disease. Electronically signed by Bimal Bess 06-06-2025 9:[address] 06/06/25 18:42 Exam(s): CT FACIAL Without Contrast EXAM: CT Maxillofacial Without Intravenous Contrast CLINICAL HISTORY: Reason for exam: trauma. TECHNIQUE: Axial computed tomography images of the face without intravenous contrast. CTDI is 26 mGy and DLP is 731 mGy-cm. Automated exposure control was utilized for the study. A dose lowering technique was utilized adhering to the principles of ALARA. COMPARISON: No relevant prior studies available. FINDINGS: Bones/joints: No acute fracture. Soft tissues: Unremarkable. Orbits: Unremarkable. Sinuses: Mucus retention cysts are seen in the right maxillary sinus. No air-fluid levels. IMPRESSION: No acute facial fracture Electronically signed by: Ian Calderon MD 06/06/25 21:[address] 06/06/25 18:42 Exam(s): CT HEAD Without Contrast EXAM: CT Head Without Intravenous Contrast CLINICAL HISTORY: Reason for exam: trauma. TECHNIQUE: Axial computed tomography images of the head/brain without intravenous contrast. CTDI is 36.79 mGy and DLP is 624 mGy-cm. Automated exposure control was utilized for the study. A dose lowering technique was utilized adhering to the principles of ALARA. COMPARISON: No relevant prior studies available. FINDINGS: Brain: Unremarkable. No hemorrhage. No significant white matter disease. No edema. Ventricles: Unremarkable. No ventriculomegaly. Bones/joints: Unremarkable. No acute fracture. Soft tissues: Unremarkable. Sinuses: Unremarkable as visualized. No acute sinusitis. Mastoid air cells: Unremarkable as visualized. No mastoid effusion. IMPRESSION: Normal head/brain CT. Electronically signed by: Ian Calderon MD 06/06/25 20:58 PM Brain MRI 06/07/25 03:02 MR brain wo/w con HISTORY: 60 years-old Male confusion acutely altered mental status like activity COMPARISON: Head CT 06/06/2025, brain MR 10/09/2024 TECHNIQUE: Multiplanar multisequence MRI of the brain was obtained with and without IV contrast FINDINGS: Study is motion degraded. No restricted diffusion to suggest an acute or subacute infarct. Midline structures are unremarkable. Degenerative changes of the cervical spine. No acute intracranial hemorrhage, midline shift, abnormal extra-axial collection, hydrocephalus or intra-axial mass. Involutional changes of the brain parenchyma. Minimal T2/FLAIR hyperintense foci within the white matter are nonspecific and may represent early changes of chronic microvascular ischemic disease. Cerebral venous sinuses and major arterial flow voids appear patent as vis ualized. Mild mucosal thickening of the right maxillary sinus. Trace mastoid effusions are suggested. No abnormal enhancement. IMPRESSION: 1. Motion degraded exam without acute intracranial abnormality identified. 2. No acute infarct. 3. No abnormal enhancement. ACT 112: Negative or not required by law. The above report was generated using voice recognition software. It may contain grammatical, syntax or spelling errors. Electronically signed by: Seb Williamson M.D. 06/07/2025 11:02 AM Medications Administered Home Medications Medication Instructions Recorded Confirmed Last Taken carbidopa ER 50 mg-levodopa 200 mg 1 tab PO UD 06/07/25 06/07/25 Unknown tablet,extended release divalproex 250 mg tablet,delayed 250 mg PO BID 06/07/25 06/07/25 Unknown release divalproex 500 mg tablet,delayed 1,000 mg PO BID 06/07/25 06/07/25 Unknown release levetiracetam 250 mg tablet 500 mg PO BID 06/07/25 06/07/25 Unknown Active Medications Generic Name Dose Route Start Last Admin Trade Name Freq PRN Reason Stop Dose Admin Carbidopa/Levodopa 1 tab 06/07/25 03:30 06/07/25 11:58 Carbidopa/Levodopa 50/200mg Ext Rel Tab PO 07/07/25 03:29 1 tab TID@0300,1200,2000 GALILEA Administration Divalproex Sodium 250 mg 06/07/25 09:00 06/07/25 08:57 Divalproex Delay Release 250 Mg Tabec PO 07/07/25 08:59 250 mg BID GALILEA Administration Divalproex Sodium 1,000 mg 06/07/25 09:00 06/07/25 08:59 Divalproex Delay Release 500 Mg Tab PO 07/07/25 08:59 1,000 mg BID GALILEA Administration Dextrose/Sodium Chloride 1,000 mls @ 150 mls/hr 06/07/25 03:02 06/07/25 05:30 D5w And 1/2nss IV 06/10/25 03:01 150 mls/hr .[id number] GALILEA Administration Levetiracetam 500 mg 06/07/25 09:00 06/07/25 09:00 Levetiracetam 500 Mg Tab PO 07/07/25 08:59 500 mg BID GALILEA Administration Potassium Chloride 40 meq 06/07/25 10:25 06/07/25 10:48 Potassium Chloride 20 Meq/15 Ml Udc PO 07/07/25 10:24 40 meq BID GALILEA Administration
--- NOTE | 2025-06-07 14:18 | Communication Note ---
Date of Service: June 07, 2025 Patient evaluated at bedside and notable restless not able to meaningfully engage in conversation. No neurologic deficit noted, speech slow but patient moving all extremities equally Discussed with neurology, suspects likely progression of Parkisons with worsening of behavioral component plan to hold sinemet plan for psych consult avoid antipsychotics as able as can cause paradoxical effect in PD 1:1
[2025-06-07 16:02] LABS: Iron 97 mcg/dl (35-175); Total Iron Binding Cap Calc 260 mcg/dl (250-450); Transferrin 186 mg/dl (200-360); Transferrin (FE) Percent Satur 37 % (20-50)
[2025-06-07] MEDS: POTASSIUM CHLORIDE / WTR 10 MEQ/100 ML PLCT IV SCH (21:05)
[2025-06-07] MEDS: MoRPHine SULFATE 4 MG/ML 1 ML CARP\\VIAL IV STA (23:07)
[2025-06-08] MEDS: ACETAMINOPHEN 1,000 MG/100 ML VIAL IV STA (07:46)
[2025-06-08] MEDS: FOLIC ACID 1 MG in SYRINGE 9.8 ML IV SCH (08:17)
[2025-06-08] MEDS: VALPROATE SOD IV SCH (08:18)
[2025-06-08] MEDS: DEXTROSE 5% IV SCH (08:18)
[2025-06-08 09:11] LABS: Hematocrit (blood only) 29.1 % (42.0-52.0); Hemoglobin 10.0 g/dl (14.0-18.0); Mean Corpuscular Hemoglobin 29.3 pg (25.0-34.0); Mean Corpuscular Volume 85.3 fL (80.0-100.0); Platelet Count 105 K/uL (130-400); RDW Standard Deviation 41.8 fL (36.4-46.3); Red Blood Count 3.41 M/uL (4.70-6.10); White Blood Count 7.24 K/ul (4.8-10.8)
[2025-06-08 09:28] LABS: Anion Gap 7.0 (3-11); Blood Urea Nitrogen 19.0 mg/dl (6-23); Calcium 8.5 mg/dl (8.6-10.3); Carbon Dioxide 32.0 mmol/L (21-32); Chloride 101.0 mmol/L (98-107); Creatinine Clr Calc Pharmacy 161.4 ml/min; Glucose 95.0 mg/dl (70-99(Fasting)); Magnesium 1.2 mg/dl (1.7-2.4); Potassium 3.3 mmol/L (3.5-5.1); Sodium 140.0 mmol/L (136-145)
[2025-06-08] MEDS ORDERED: POTASSIUM PHOS 3 MMOL/1 ML INFUSION IV STA (09:41)
[2025-06-08 09:46] LABS: Ferritin 356.1 ng/ml (8-388)
--- NOTE | 2025-06-08 09:58 | Hospitalist Progress Note ---
Date of Service June 08, 2025 Assessment & Plan (1) AMS (altered mental status): Plan: Mr. Thrasher is a 60-year-old male with past medical history significant for generalized nonconvulsive epilepsy, juvenile seizure disorder, cephalgia, migraine variant, Parkinson disease, history of tobacco abuse, history of mixed action and resting tremor admitted for acute metabolic encephalopathy with superimposed delirium. Patient may have potentially been set off by trihexyphenidyl; however, sister and terminal supervisor friend also report patient has been declining over course of last year. #Acute metabolic encephalopathy, multifactorial iso dehydration/possible uti #Superimposed delirium #Parkinsons disease CT head, face CT, CT cervical spine: Chest x-ray, CT abdomen pelvis no acute findings No leukocytosis. B12 633 B1 pending UA negative for nitrate and WBC but shows 2+ bacteria Cultures pending Folate 3.08, sp IV replacement TSH normal at 1.4 Valproic acid level mildly elevated--discussed with neurology, not likely to contribute Keppra level pending ammonia 55 MRI without acute process Neurology suspects progression of PD Psychiatry consulted -AVOID ZYPREXA, can cayse akathisia -IV ativan for agitation -Seroquel 25mg qhs when able to take po Fall precautions #abnormal UA CTX for now follow cx #epilespy Continue home Keppra and divalproex, IV formulaiton for now IV Ativan as needed for breakthrough seizures Await neurology consult #Thrombocytopenia new Will follow labs, uptrending, possibly 2/2 infection/dehydration # Parkinson's hold carbidopa levodopa, hold trihexyphenidyl DVT prophylaxis Heparin subcu Monitor platelets Disposition Telemetry Full code for now Admission and Anticipated Discharge Date Admission Date: June 07, 2025 Subjective agitated overnight received 2 doses of zyprexa--worsening restlessness; discussed with nursing to avoid further antipsychotics Patient not following commands, awake, will respond to name, but otherwise not oriented Physical Exam Constitutional: agitated, restless Respiratory: normal respiratory effort, lungs clear to auscultation Cardiovascular: RRR, no murmur, no edema Neurologic: no focal deficits noted Results & Data Results & Data Vital Signs (Past 12 Hours) Vital Signs Temp Pulse Pulse Resp BP Pulse Ox O2 Del Method 06/08/25 07:07 36.8 C 118 H 18 154/95 H 95 Room Air 06/08/25 06:59 110 H 06/08/25 02:56 36.4 C L 98 H 18 145/82 H 97 Room Air 06/07/25 22:59 36.6 C 108 H 20 167/94 H 97 Room Air Laboratory Results Short CBC 06/08/25 Range/Units 08:21 WBC 7.24 (4.8-10.8) K/ul Hgb 10.0 L (14.0-18.0) g/dl Hct 29.1 L (42.0-52.0) % Plt Count 105 L (130-400) K/uL BMP 06/08/25 08:21 Sodium 140 Potassium 3.3 L Chloride 101 Carbon Dioxide 32 BUN 19 D Creatinine 0.41 L Glucose 95 Calcium 8.5 L Medications Administered Home Medications Medication Instructions Recorded Confirmed Last Taken carbidopa ER 50 mg-levodopa 200 mg 1 tab PO UD 06/07/25 06/07/25 Unknown tablet,extended release divalproex 250 mg tablet,delayed 250 mg PO BID 06/07/25 06/07/25 Unknown release divalproex 500 mg tablet,delayed 1,000 mg PO BID 06/07/25 06/07/25 Unknown release levetiracetam 250 mg tablet 500 mg PO BID 06/07/25 06/07/25 Unknown Active Medications Generic Name Dose Route Start Last Admin Trade Name Alanis PRN Reason Stop Dose Admin Carbidopa/Levodopa 1 tab 06/07/25 03:30 06/07/25 11:58 Carbidopa/Levodopa 50/200mg Ext Rel Tab PO 07/07/25 03:29 1 tab TID@0300,1200,2000 GALILEA Administration Divalproex Sodium 250 mg 06/07/25 09:00 06/07/25 20:37 Divalproex Delay Release 250 Mg Tabec PO 07/07/25 08:59 Not Given BID GALILEA Divalproex Sodium 1,000 mg 06/07/25 09:00 06/07/25 20:37 Divalproex Delay Release 500 Mg Tab PO 07/07/25 08:59 Not Given BID GALILEA Folic Acid 1 mg/ Syringe 10 mls @ 5 mls/min 06/08/25 09:00 06/08/25 08:17 IV 07/08/25 08:59 5 mls/min QAM GALILEA Administration Valproic Acid 1,250 mg/ 112.5 mls @ 112.5 mls/hr 06/08/25 09:00 06/08/25 09:18 Dextrose IV 07/08/25 08:59 Infused BID GALILEA Infusion Levetiracetam 500 mg 06/07/25 09:00 06/07/25 09:00 Levetiracetam 500 Mg Tab PO 07/07/25 08:59 500 mg BID GALILEA Administration Levetiracetam 500 mg 06/07/25 20:45 06/08/25 08:17 Levetiracetam 500 Mg/5 Ml Vial IV 07/07/25 20:44 500 mg Q12H GALILEA Administration Potassium Chloride 40 meq 06/07/25 10:25 06/07/25 10:48 Potassium Chloride 20 Meq/15 Ml Udc PO 07/07/25 10:24 40 meq BID GALILEA Administration
[2025-06-08] MEDS: LORazepam Inj 1 MG in SYRINGE 0.5 ML IV STA (10:00)
--- NOTE | 2025-06-08 10:20 | Psychiatric Consultation ---
Date of Consultation June 08, 2025 Impression / Recommendations Impression Diagnostically consistent with encephalopathy/delirium superimposed on Parkinson's disease with possible additional PD progression. Sounds like recent anticholinergic effects from trihexyphenidyl may have set off delirium vs new weakness from disease progression with decreased po intake and some electrolyte abnormalities. Unfortunately there are no known medications to cure or shorten the duration of delirium; rather antipsychotics are used at times to help with sleep/appetite/psychomotor agitation and hallucinations if these symptoms are causing significant distress and/or interfering with acute safety. Duration of delirium varies broadly with persistent delirium (defined as lasting for weeks or months) occurring frequently with [id number]% of patients exhibiting some symptoms of delirium at 6 months after symptom onset, see:Eunice Hernandez., Amado Han., Viktoriya Danielle.et al.Delirium.Natalie Rev Dis Primers6, 90 (2020). [email or web address]/[email or web address]. PD is further complicated by worsening motor symptoms with most antispcyhtoics. Seroquel is preferred but only comes as a po option. Given 1-on-1 and RN chart review reports of increased physical agitation overnight, I also worry he may have experienced some akathisia from the olanzapine IM so agree with use of benzodiapines for behavioral emergencies when an IM or IV option is required. Caution that benzodiapines can sometimes worsen or peptuate delirium so monitor for response over time. Note all antipsychotic medications carry black box wa rning for increased risk of all-cause mortality in setting of dementia. Overall, I spent a total of 45 minutes with this case including review of chart records, review of labwork, review of EKG QTc, direct evaluation of the patient at bedside, counseling the patient, discussion of the patient with the hospitalist provider, discussion with the psychiatric liason during clinical rounds and documentation in the electronic health record. (1) Metabolic encephalopathy: (2) Parkinson disease: (3) Epilepsy: Plan -1-on-1 prn -Consider seroquel 12.5 mg qhs and can titrate up to 25mg BID for behavioral management as needed; would check EKG QTc routinely -Continue medical workup to rule out and treat any underlying causes contributing to potential delirium, avoid or limit use of deliriogenic medications (benzodiazepines, opioids, anticholinergics) -Continue with delirium prevention measures: raising blinds during the day, closing at night, frequent re-orientation, contact with family/friends, explaining procedures/nursing care measures prior to physical contact, correct any hearing and visual impairments -For behavioral emergency: ativan 0.5 or 1 mg IV or IM for agitation. Caution this could worsen delirium. If this occurs consider use of ICU/Precedex given concern of antipsychotic use with his Parkinson's disease. Psych History Identifying Data Edis Crockett is a 60 yo man with past medical history significant for generalized nonconvulsive epilepsy, juvenile seizure disorder, cephalgia migraine variant, Parkinson disease, history of tobacco use, history of mixed action and resting tremor was brought in because of confusion. Psychiatry consulted for consideration for psychiatric manifestations of Parkinson's disease. Chief Complaint asleep History of Present Illness Edis was brought to the hospital by his friend due to increasing falls at home, decreased speech and increased confusion. Collateral per the admission note that his sister recently saw him and noted that he was confused and seemed to be trying to talk but was not able to speak much with increased weakness and not eating. He was seen at his outpatient neurologist's on 06/01/2025 and trihexyphenidyl was discontinued due to concerns for increased confusion. Seen by neurology who wonder about progression of Parkinson's disease. Head imaging was done. Overnight he required IM olanzapine at 2040 and 207 for agitation. He was awake most of the night pulling on leads, trying to remove catheter and rolling repeatedly in bed. This morning received ativan IV due to ongoing physical agitation and he then fell asleep. Per 1-on-1 prior to ativan he was mostly responding in one word answers but did at some point reference a recent fall where he couldn't get back up. Allergies Allergy/AdvReac Type Severity Reaction Status Date / Time mushroom Allergy Unknown "ENDED UP Verified 10/09/24 04:03 IN HOSPITAL" Home Medications Medication Instructions Recorded Confirmed Type carbidopa ER 50 mg-levodopa 200 mg 1 tab PO UD 06/07/25 06/07/25 History tablet,extended release divalproex 250 mg tablet,delayed 250 mg PO BID 06/07/25 06/07/25 History release divalproex 500 mg tablet,delayed 1,000 mg PO BID 06/07/25 06/07/25 History release levetiracetam 250 mg tablet 500 mg PO BID 06/07/25 06/07/25 History Patient History Medical History Parkinson disease Epilepsy Surgical History No significant past surgical history Family History Other Lung cancer Social History Smoking Status: Former smoker Tobacco Type: Cigarettes Cigarettes Per Day: 5-6; Second Hand Exposure: No; Do You Dip or Chew Tobacco: No; Hx Alcohol Use: No Hx Substance Use: No Preferred Language: [place]er Communication Ability: confused Polysomnographic Technologist Required: No Beliefs That Will Affect Care: None marital status: Single Current Living Situation: Alone current occupational status: employed Feels Safe at Home: Yes Assistive Devices: Brace/Splint/Immobilizer Physical Exam Vital Signs (Past 24 Hours): Last Vital Signs Temp 36.8 C 06/08/25 07:07 Pulse 118 H 06/08/25 07:07 Resp 18 06/08/25 07:07 BP 154/95 H 06/08/25 07:07 Pulse Ox 95 06/08/25 07:07 O2 Del Method Room Air 06/08/25 07:07 Results & Data (PSY) Medications Administered Carbidopa/Levodopa (Carbidopa/Levodopa 50/200mg Ext Rel Tab) 1 tab PO TID@0300,1200,2000 GALILEA Stop: 07/07/25 03:29 Last Admin: 06/07/25 11:58 Dose: 1 tab Documented By: Admin: 06/07/25 05:04 Dose: Not Given Documented By: KIMBERLYN Divalproex Sodium (Divalproex Delay Release 250 Mg Tabec) 250 mg PO BID GALILEA Stop: 07/07/25 08:59 Last Admin: 06/07/25 20:37 Dose: Not Given Documented By: Admin: 06/07/25 08:57 Dose: 250 mg Documented By: LIZ Divalproex Sodium (Divalproex Delay Release 500 Mg Tab) 1,000 mg PO BID GALILEA Stop: 07/07/25 08:59 Last Admin: 06/07/25 20:37 Dose: Not Given Documented By: Admin: 06/07/25 08:59 Dose: 1,000 mg Documented By: LIZ Folic Acid 1 mg/ Syringe 10 mls @ 5 mls/min IV QAM GALILEA Stop: 07/08/25 08:59 Last Admin: 06/08/25 08:17 Dose: 5 mls/min Documented By: jarett Co-signed By: MATTY Valproic Acid 1,250 mg/ (Dextrose) 112.5 mls @ 112.5 mls/hr IV BID GALILEA Stop: 07/08/25 08:59 Last Infusion: 06/08/25 09:18 Dose: Infused Documented By: Admin: 06/08/25 08:18 Dose: 112.5 mls/hr Documented By: jarett Co-signed By: MATTY Levetiracetam (Levetiracetam 500 Mg Tab) 500 mg PO BID GALILEA Stop: 07/07/25 08:59 Last Admin: 06/07/25 09:00 Dose: 500 mg Documented By: LIZ Levetiracetam (Levetiracetam 500 Mg/5 Ml Vial) 500 mg IV Q12H GALILEA Stop: 07/07/25 20:44 Last Admin: 06/08/25 08:17 Dose: 500 mg Documented By: jarett Co-signed By: MATTY Admin: 06/07/25 21:45 Dose: 500 mg Documented By: LUCIANO Potassium Chloride (Potassium Chloride 20 Meq/15 Ml Udc) 40 meq PO BID GALILEA Stop: 07/07/25 10:24 Last Admin: 06/07/25 10:48 Dose: 40 meq Documented By: LIZ Coding Level of Care Code 43996 IN/OBS CONSULT LVL 3,45M Diagnoses Metabolic encephalopathy G93.41 Parkinson disease G20.A1 Epilepsy G40.909
[2025-06-08] MEDS: POTASSIUM PHOSPHATE 24 MMOL in SODIUM CHLORIDE 0.9% 500 ML IV ONE (10:32)
[2025-06-08] MEDS: cefTRIAXone SODIUM 2,000 MG/50 ML BAG IV SCH (10:41)
[2025-06-08] MEDS: MAGNESIUM SULFATE / D5W 1 GM/100 ML BAG IV SCH (11:55)
[2025-06-09] MEDS: LORazepam Inj 1 MG in SYRINGE 0.5 ML IV PRN ×2 (02:01→16:44)
[2025-06-09] MEDS: ACETAMINOPHEN 1,000 MG/100 ML VIAL IV PRN (03:59)
[2025-06-09 08:05] LABS: Hematocrit (blood only) 26.9 % (42.0-52.0); Hemoglobin 9.5 g/dl (14.0-18.0); Mean Corpuscular Hemoglobin 30.1 pg (25.0-34.0); Mean Corpuscular Volume 85.1 fL (80.0-100.0); Platelet Count 113 K/uL (130-400); RDW Standard Deviation 42.0 fL (36.4-46.3); Red Blood Count 3.16 M/uL (4.70-6.10); White Blood Count 10.71 K/ul (4.8-10.8)
[2025-06-09 08:28] LABS: Anion Gap 8.0 (3-11); Blood Urea Nitrogen 14.0 mg/dl (6-23); Calcium 8.1 mg/dl (8.6-10.3); Carbon Dioxide 32.0 mmol/L (21-32); Chloride 100.0 mmol/L (98-107); Creatinine Clr Calc Pharmacy 143.7 ml/min; Glucose 100.0 mg/dl (70-99(Fasting)); Magnesium 1.6 mg/dl (1.7-2.4); Potassium 3.5 mmol/L (3.5-5.1); Sodium 140.0 mmol/L (136-145)
[2025-06-09] MEDS: MAGNESIUM SULFATE / D5W 1 GM/100 ML BAG IV SCH (11:18)
--- NOTE | 2025-06-09 14:41 | Hospitalist Progress Note ---
Date of Service June 09, 2025 Assessment & Plan (1) AMS (altered mental status): Plan: Mr. Thrasher is a 60-year-old male with past medical history significant for generalized nonconvulsive epilepsy, juvenile seizure disorder, cephalgia, migraine variant, Parkinson disease, history of tobacco abuse, history of mixed action and resting tremor admitted for acute metabolic encephalopathy with superimposed delirium. Patient may have potentially been set off by trihexyphenidyl; however, sister and intermodal owner operator truck driver friend also report patient has been declining over course of last year. Patient noted with urinary retention--rodriguez in place. Patient more calm with use of ativan IV prn, possible reaction/akathisia from Zyprexa. Able to eat with assistance 06/08 and take po seroquel, but will keep iv meds as is given unreliable/inconsistent with accepting po intake. #Acute metabolic encephalopathy, multifactorial iso dehydration/possible uti #Superimposed delirium #Parkinsons disease CT head, face CT, CT cervical spine: Chest x-ray, CT abdomen pelvis no acute findings No leukocytosis. B12 633 B1 pending UA negative for nitrate and WBC but shows 2+ bacteria Cultures negative Folate 3.08, sp IV replacement TSH normal at 1.4 Valproic acid level mildly elevated--discussed with neurology, not likely to contribute Keppra level pending ammonia 55 MRI without acute process Neurology suspects progression of PD Psychiatry consulted -AVOID ZYPREXA, can cause akathisia -IV ativan for agitation -1-on-1 prn -Started on Seroquel 25mg qhs, plan to titrate up to 25mg BID for behavioral management as needed -EKG ordered daily for now for qtc monitoring -Continue with delirium prevention measures: raising blinds during the day, closing at night, frequent re-orientation, contact with family/friends, explaining procedures/nursing care measures prior to physical contact, correct any hearing and visual impairments -For behavioral emergency: ativan 0.5 or 1 mg IV or IM for agitation. Caution this could worsen delirium. If this occurs consider use of ICU/Precedex given concern of antipsychotic use with his Parkinson's disease. #Chronic anemia doesnt appear to be actively bleeding labs consistent with AoCD hgb stable between 9.5-10 this admission, prior baseline 11-12 in begining of year CTM #Electrolyte abnormalities replace prn #abnormal UA UA cx negative discontinue IV abx, no clear source of infection #epilespy Continue home Keppra and divalproex, IV formulation for now IV Ativan as needed for breakthrough seizures Await neurology consult #Thrombocytopenia new, no clear source infection lyme negative Will follow labs, uptrending, possibly 2/2 infection/dehydration continues to uptrend 72-->113 # Parkinson's hold carbidopa levodopa, hold trihexyphenidyl DVT prophylaxis Heparin subcu Monitor platelets Disposition Telemetry Full code for now Admission and Anticipated Discharge Date Admission Date: June 07, 2025 Subjective Unable to obtain much from patient. Restless per nursing able to sit up, take Seroquel in the evening and eat some dinner in the evening seeming appears to have bitten lips, difficult to identify dried blood vs mucus/thick coating on teeth Physical Exam Constitutional: awake, not oriented, moving all limbs equally, sitting self upright ENMT: extremely poor dentition noted, thick brown coating on teeth, difficult to ascertain if sloughing v blood Respiratory: normal respiratory effort, lungs clear to auscultation Cardiovascular: RRR, no murmur, no edema Neurologic: not following commands, will open eyes to name and move towards each other Results & Data Results & Data Vital Signs (Past 12 Hours) Vital Signs Temp Pulse Pulse Resp BP Pulse Ox O2 Del Method 06/09/25 10:16 36.5 C 115 H 21 157/97 H 93 Room Air 06/09/25 07:17 87 06/09/25 05:16 115 H 16 143/87 H 93 Room Air Laboratory Results Short CBC 06/09/25 Range/Units 07:09 WBC 10.71 (4.8-10.8) K/ul Hgb 9.5 L (14.0-18.0) g/dl Hct 26.9 L (42.0-52.0) % Plt Count 113 L (130-400) K/uL BMP 06/09/25 07:09 Sodium 140 Potassium 3.5 Chloride 100 Carbon Dioxide 32 BUN 14 Creatinine 0.46 L Glucose 100 H Calcium 8.1 L Medications Administered Home Medications Medication Instructions Recorded Confirmed Last Taken carbidopa ER 50 mg-levodopa 200 mg 1 tab PO UD 06/07/25 06/07/25 Unknown tablet,extended release divalproex 250 mg tablet,delayed 250 mg PO BID 06/07/25 06/07/25 Unknown release divalproex 500 mg tablet,delayed 1,000 mg PO BID 06/07/25 06/07/25 Unknown release levetiracetam 250 mg tablet 500 mg PO BID 06/07/25 06/07/25 Unknown Active Medications Generic Name Dose Route Start Last Admin Trade Name Freq PRN Reason Stop Dose Admin Carbidopa/Levodopa 1 tab 06/07/25 03:30 06/07/25 11:58 Carbidopa/Levodopa 50/200mg Ext Rel Tab PO 07/07/25 03:29 1 tab TID@0300,1200,2000 GALILEA Administration Divalproex Sodium 250 mg 06/07/25 09:00 06/07/25 20:37 Divalproex Delay Release 250 Mg Tabec PO 07/07/25 08:59 Not Given BID GALILEA Divalproex Sodium 1,000 mg 06/07/25 09:00 06/07/25 20:37 Divalproex Delay Release 500 Mg Tab PO 07/07/25 08:59 Not Given BID GALILEA Folic Acid 1 mg/ Syringe 10 mls @ 5 mls/min 06/08/25 09:00 06/09/25 08:31 IV 07/08/25 08:59 5 mls/min QAM GALILEA Administration Acetaminophen 1,000 mg in 100 mls @ 400 mls/hr 06/08/25 15:30 06/09/25 04:15 Ofirmev IV 06/11/25 15:29 Infused Q8H PRN Infusion Pain Valproic Acid 1,250 mg/ 112.5 mls @ 112.5 mls/hr 06/08/25 09:00 06/09/25 11:18 Dextrose IV 07/08/25 08:59 Infused BID GALILEA Infusion Ceftriaxone Sodium 2,000 mg in 50 mls @ 100 mls/hr 06/08/25 09:30 06/09/25 09:32 Rocephin IV 06/10/25 09:29 Infused DAILY GALILEA Infusion Lorazepam 1 mg/ Syringe 1 mls @ 2 mls/min 06/08/25 18:21 06/09/25 02:01 IV 07/08/25 18:20 2 mls/min Q8H PRN Administration Anxiety/Agitation Magnesium Sulfate/Dextrose 1 gm in 100 mls @ 50 mls/hr 06/09/25 09:30 06/09/25 13:19 Magnesium Sulfate / D5w IV 06/09/25 17:29 50 mls/hr Q2H GALILEA Administration Levetiracetam 500 mg 06/07/25 09:00 06/07/25 09:00 Levetiracetam 500 Mg Tab PO 07/07/25 08:59 500 mg BID GALILEA Administration Levetiracetam 500 mg 06/07/25 20:45 06/09/25 08:30 Levetiracetam 500 Mg/5 Ml Vial IV 07/07/25 20:44 500 mg Q12H GALILEA Administration Quetiapine Fumarate 25 mg 06/08/25 21:00 06/08/25 20:02 Quetiapine Fumarate 25 Mg Tablet PO 07/08/25 20:59 25 mg HS GALILEA Administration
[2025-06-09] MEDS ORDERED: POTASSIUM CHLORIDE 20 MEQ in LACTATED RINGER'S 1,000 ML IV ONE (20:56)
[2025-06-09] MEDS: POTASSIUM CHLORIDE CRTAB 20 MEQ TABCR PO STA (21:44)
[2025-06-10 08:45] LABS: Hematocrit (blood only) 28.9 % (42.0-52.0); Hemoglobin 9.8 g/dl (14.0-18.0); Mean Corpuscular Hemoglobin 29.0 pg (25.0-34.0); Mean Corpuscular Volume 85.5 fL (80.0-100.0); Platelet Count 142 K/uL (130-400); RDW Standard Deviation 43.6 fL (36.4-46.3); Red Blood Count 3.38 M/uL (4.70-6.10); White Blood Count 10.10 K/ul (4.8-10.8)
[2025-06-10 08:58] LABS: Anion Gap 5.0 (3-11); Blood Urea Nitrogen 14.0 mg/dl (6-23); Calcium 8.2 mg/dl (8.6-10.3); Carbon Dioxide 35.0 mmol/L (21-32); Chloride 98.0 mmol/L (98-107); Creatinine Clr Calc Pharmacy 120.2 ml/min; Glucose 92.0 mg/dl (70-99(Fasting)); Magnesium 1.8 mg/dl (1.7-2.4); Potassium 3.5 mmol/L (3.5-5.1); Sodium 138.0 mmol/L (136-145)
--- NOTE | 2025-06-10 16:44 | Hospitalist Progress Note ---
Date of Service June 10, 2025 Assessment & Plan (1) AMS (altered mental status): Plan: In summary, 60-year-old male with past medical history significant for generalized nonconvulsive epilepsy, juvenile seizure disorder, cephalgia, migraine variant, Parkinson disease, history of tobacco abuse, history of mixed action and resting tremor admitted for acute metabolic encephalopathy with superimposed delirium. Per family patient has been declining over course of last year. Patient noted with urinary retention--rodriguez in place. Patient more calm with use of ativan IV prn, possible reaction/akathisia from Zyprexa. Able to eat with assistance 06/08 and take po seroquel, but will keep iv meds as is given unreliable/inconsistent with accepting po intake. #Acute metabolic encephalopathy, multifactorial iso dehydration/possible uti #Superimposed delirium #Parkinsons disease CT head, face CT, CT cervical spine: Chest x-ray, CT abdomen pelvis no acute findings No leukocytosis. B12 633 B1 pending UA negative for nitrate and WBC but shows 2+ bacteria Cultures negative Folate 3.08, sp IV replacement TSH normal at 1.4 Valproic acid level mildly elevated--discussed with neurology, not likely to contribute Keppra level still pending ammonia 55 MRI without acute process Neurology suspects progression of PD Psychiatry consulted -AVOID ZYPREXA, can cause akathisia -IV ativan for agitation -1-on-1 prn -Started on Seroquel 25mg qhs, plan to titrate up to 25mg BID for behavioral management as needed -EKG ordered daily for now for qtc monitoring -Continue with delirium prevention measures: raising blinds during the day, closing at night, frequent re-orientation, contact with family/friends, explaining procedures/nursing care measures prior to physical contact, correct any hearing and visual impairments -For behavioral emergency: ativan 0.5 or 1 mg IV or IM for agitation. Caution this could worsen delirium. If this occurs consider use of ICU/Precedex given concern of antipsychotic use with his Parkinson's disease. #Chronic anemia No evidence of active ongoing bleeding Labs consistent with AoCD Hgb stable #Electrolyte abnormalities replace prn #abnormal UA UA cx negative discontinued IV abx, no clear source of infection #epilespy Continue home Keppra and divalproex, IV formulation for now IV Ativan as needed for breakthrough seizures Neurology consult #Thrombocytopenia new, no clear source infection lyme negative Will follow labs, uptrending, possibly 2/2 infection/dehydration continues to uptrend 72-->113-->142 # Parkinson's hold carbidopa levodopa, hold trihexyphenidyl DVT prophylaxis Heparin subcu Full code for now Admission and Anticipated Discharge Date Admission Date: June 07, 2025 Subjective Chart, vital signs and data reviewed. No overnight events. Patient seen with nursing staff. Patient can give no meaningful history. Nursing reports he did eat breakfast this morning. Review of Systems Review of Systems: Unobtainable Physical Exam Physical Exam: General- adult male seen at bedside with nursing. He is cachectic, he is rest less Lungs- clear to auscultation and percussion Heart- regular rhythm; no murmur, no gallop, no rub appreciated Abdomen- normal bowel sounds, no masses or hepatosplenomegaly Extremities- no pretibial edema, no calf tenderness; peripheral pulses intact Results & Data Results & Data Vital Signs (Past 12 Hours) Vital Signs Temp Pulse Resp BP Pulse Ox O2 Del Method 06/10/25 15:08 36.6 C 106 H 18 145/91 H 06/10/25 11:22 36.4 C L 97 H 17 154/98 H 96 Room Air 06/10/25 08:12 36.6 C 105 H 18 158/105 H 96 Room Air Laboratory Results Short CBC 06/10/25 Range/Units 08:21 WBC 10.10 (4.8-10.8) K/ul Hgb 9.8 L (14.0-18.0) g/dl Hct 28.9 L (42.0-52.0) % Plt Count 142 (130-400) K/uL [facility] 06/10/25 08:21 Sodium 138 Potassium 3.5 Chloride 98 Carbon Dioxide 35 H BUN 14 Creatinine 0.55 L Glucose 92 Calcium 8.2 L
[2025-06-11] MEDS ORDERED: POTASSIUM PHOS 3 MMOL/1 ML INFUSION IV STA (08:44)
[2025-06-11] MEDS: POTASSIUM PHOSPHATE 21 MMOL in SODIUM CHLORIDE 0.9% 500 ML IV ONE (09:57)
--- NOTE | 2025-06-11 15:02 | Hospitalist Progress Note ---
Date of Service June 11, 2025 Assessment & Plan (1) AMS (altered mental status): Plan: In summary, 60-year-old male with past medical history significant for generalized nonconvulsive epilepsy, juvenile seizure disorder, cephalgia, migraine variant, Parkinson disease, history of tobacco abuse, history of mixed action and resting tremor admitted for acute metabolic encephalopathy with superimposed delirium. Per family patient has been declining over course of last year. Patient noted with urinary retention--rodriguez in place. Patient more calm with use of ativan IV prn, possible reaction/akathisia from Zyprexa. Able to eat with assistance 06/08 and take po seroquel, but will keep iv meds as is given unreliable/inconsistent with accepting po intake. #Acute metabolic encephalopathy, multifactorial likely secondary to dehydration/possible uti #Superimposed delirium #Parkinsons disease CT head, face CT, CT cervical spine: Chest x-ray, CT abdomen pelvis no acute findings No evidence of infection, B12 and folate levels are normal UA negative for nitrate and WBC but shows 2+ bacteria,Cultures negative Folate 3.08, sp IV replacement TSH normal at 1.4 Valproic acid level mildly elevated--discussed with neurology, not likely to contribute Keppra level Is normal ammonia 55 MRI without acute process Neurology suspects progression of PD Psychiatry consulted -AVOID ZYPREXA, can cause akathisia -IV ativan for agitation -1-on-1 prn -Started on Seroquel 25mg qhs, plan to titrate up to 25mg BID for behavioral management as needed -EKG ordered daily for now for qtc monitoring -Continue with delirium prevention measures: raising blinds during the day, closing at night, frequent re-orientation, contact with family/friends, explaining procedures/nursing care measures prior to physical contact, correct any hearing and visual impairments -For behavioral emergency: ativan 0.5 or 1 mg IV or IM for agitation. Caution this could worsen delirium. If this occurs consider use of ICU/Precedex given concern of antipsychotic use with his Parkinson's disease. Vitamin B1 level is low Could have an cephalopathy -Warnicke and cephalopathy due to low vitamin B1 level Will start high-dose of thiamine intravenously and see if any improvement- IV thiamine 500 mg 3 times daily #Chronic anemia No evidence of active ongoing bleeding Labs consistent with AoCD Hgb stable #Electrolyte abnormalities replace prn #abnormal UA UA cx negative discontinued IV abx, no clear source of infection #epilespy Continue home Keppra and divalproex, IV formulation for now IV Ativan as needed for breakthrough seizures Neurology consult #Thrombocytopenia new, no clear source infection lyme negative Will follow labs, uptrending, possibly 2/2 infection/dehydration continues to uptrend 72-->113-->142 # Parkinson's Hold carbidopa levodopa, hold trihexyphenidyl DVT prophylaxis Heparin subcu Full code for now Admission and Anticipated Discharge Date Admission Date: June 07, 2025 Subjective 06/11/2025 The patient was seen and examined in the medical floor He remains confused with agitation at times, trying to come out of bed and requiring one-to-one sitter Trying to take out medical lines and has been requiring mittens Review of Systems Review of Systems: Unobtainable due to cognitive status Physical Exam Physical Exam: Lying in bed with unsteadiness but not been aggressive or harmful to others Constitutional: + ill appearing, average body habitus an d + behavioral limitations Eyes: PERRL, conjunctivae normal, anicteric sclerae ENMT: external ear and nose normal, oropharynx normal Neck: trachea midline, no thyromegaly Respiratory: no respiratory distress Auscultation: lungs clear to auscultation bilaterally Cardiovascular: Rate/Rhythm: regular rate and regular rhythm; not tachycardic Heart Sounds: normal S1 and normal S2; no murmur Extremities: no edema Gastrointestinal (Abdomen): Inspection/Auscultation: normal bowel sounds; abdomen not distended Percussion/Palpation: abdomen soft; abdomen nontender Musculoskeletal: No acute arthritis involving any of the joint Neurologic: normal touch/pain/proprioception and moves all extremities; no focal motor deficits Lymphatic: no cervical or axillary lymphadenopathy Results & Data Results & Data Vital Signs (Past 12 Hours) Vital Signs Temp Pulse Resp BP Pulse Ox O2 Del Method 06/11/25 08:04 36.4 C L 84 17 142/86 H 96 Room Air Medications Administered Current Inpatient Medications Carbidopa/Levodopa (Carbidopa/Levodopa 50/200mg Ext Rel Tab) 1 tab PO TID@0300,1200,2000 [facility] Stop: 07/07/25 03:29 Last Admin: 06/07/25 11:58 Dose: 1 tab Divalproex Sodium (Divalproex Delay Release 250 Mg Tabec) 250 mg PO BID [facility] Stop: 07/07/25 08:59 Last Admin: 06/07/25 20:37 Dose: Not Given Divalproex Sodium (Divalproex Delay Release 500 Mg Tab) 1,000 mg PO BID [facility] Stop: 07/07/25 08:59 Last Admin: 06/07/25 20:37 Dose: Not Given Lorazepam 1 mg/ Syringe 1 mls @ 2 mls/min IV Q2H PRN PRN Reason: Breakthrough Seizures Stop: 07/07/25 03:01 Last Admin: 06/11/25 02:27 Dose: 2 mls/min Folic Acid 1 mg/ Syringe 10 mls @ 5 mls/min IV QAM [facility] Stop: 07/08/25 08:59 Last Admin: 06/11/25 08:43 Dose: 5 mls/min Acetaminophen (Ofirmev) 1,000 mg in 100 mls @ 400 mls/hr IV Q8H PRN PRN Reason: Pain Stop: 06/11/25 15:29 Last Infusion: 06/11/25 08:31 Dose: Infused Valproic Acid 1,250 mg/ (Dextrose) 112.5 mls @ 112.5 mls/hr IV BID [facility] Stop: 07/08/25 08:59 Last Infusion: 06/11/25 09:48 Dose: Infused Lorazepam 1 mg/ Syringe 1 mls @ 2 mls/min IV Q8H PRN PRN Reason: Anxiety/Agitation Stop: 07/08/25 18:20 Last Admin: 06/10/25 12:55 Dose: 2 mls/min Levetiracetam (Levetiracetam 500 Mg Tab) 500 mg PO BID [facility] Stop: 07/07/25 08:59 Last Admin: 06/07/25 09:00 Dose: 500 mg Levetiracetam (Levetiracetam 500 Mg/5 Ml Vial) 500 mg IV Q12H [facility] Stop: 07/07/25 20:44 Last Admin: 06/11/25 08:45 Dose: 500 mg Nitroglycerin (Nitroglycerin Sl 0.4 Mg/Tab Tab) 0.4 mg SL Q5M PRN PRN Reason: Chest Pain Stop: 07/07/25 03:01 Quetiapine Fumarate (Quetiapine Fumarate 25 Mg Tablet) 25 mg PO HS [facility] Stop: 07/08/25 20:59 Last Admin: 06/10/25 21:41 Dose: 25 mg
[2025-06-11] MEDS: THIAMINE HCL 500 MG in SODIUM CHLORIDE 0.9% 50 ML IV SCH (16:16)
--- NOTE | 2025-06-11 22:28 | Electrocardiogram Report ---
Test Reason : Blood Pressure : */* mmHG Vent. Rate : 99 BPM Atrial Rate : 99 BPM P-R Int : 108 ms QRS Dur : 76 ms QT Int : 338 ms P-R-T Axes : 60 -52 12 degrees QTcB Int : 433 ms Sinus rhythm with short DC Left axis deviation When compared with ECG of 06-Jun-2025 18:21, QRS axis Shifted left Confirmed by Earnest Hall ([id number] on 06/11/2025 10:27:42 PM Referred By: REFERRED SELF Confirmed By: Earnest Hall
[2025-06-12] MEDS: ACETAMINOPHEN 1,000 MG/100 ML VIAL IV STA (03:18)
--- NOTE | 2025-06-12 13:41 | Hospitalist Progress Note ---
Date of Service June 12, 2025 Assessment & Plan (1) AMS (altered mental status): Plan: In summary, 60-year-old male with past medical history significant for generalized nonconvulsive epilepsy, juvenile seizure disorder, cephalgia, migraine variant, Parkinson disease, history of tobacco abuse, history of mixed action and resting tremor admitted for acute metabolic encephalopathy with superimposed delirium. Per family patient has been declining over course of last year. Patient noted with urinary retention--rodriguez in place. Patient more calm with use of ativan IV prn, possible reaction/akathisia from Zyprexa. Able to eat with assistance 06/08 and take po seroquel, but will keep iv meds as is given unreliable/inconsistent with accepting po intake. #Acute metabolic encephalopathy, multifactorial likely secondary to dehydration/possible uti #Superimposed delirium #Parkinsons disease CT head, face CT, CT cervical spine: Chest x-ray, CT abdomen pelvis no acute findings No evidence of infection, B12 and folate levels are normal UA negative for nitrate and WBC but shows 2+ bacteria,Cultures negative Folate 3.08, sp IV replacement TSH normal at 1.4 Valproic acid level mildly elevated--discussed with neurology, not likely to contribute Keppra level Is normal ammonia 55 MRI without acute process Neurology suspects progression of PD Psychiatry consulted -AVOID ZYPREXA, can cause akathisia -IV ativan for agitation -1-on-1 prn -Started on Seroquel 25mg qhs, plan to titrate up to 25mg BID for behavioral management as needed -EKG ordered daily for now for qtc monitoring -Continue with delirium prevention measures: raising blinds during the day, closing at night, frequent re-orientation, contact with family/friends, explaining procedures/nursing care measures prior to physical contact, correct any hearing and visual impairments -For behavioral emergency: ativan 0.5 or 1 mg IV or IM for agitation. Caution this could worsen delirium. If this occurs consider use of ICU/Precedex given concern of antipsychotic use with his Parkinson's disease. Remains hemodynamically stable, confused and occasional agitation Requiring one-to-one sitter and also mittens to prevent taking out of IV lines and coming out of bed Vitamin B1 level is low Could have an cephalopathy -Warnicke and cephalopathy due to low vitamin B1 level Will start high-dose of thiamine intravenously and see if any improvement- IV thiamine 500 mg 3 times daily Seems a little better and will continue high-dose of thiamine for a day or 2 #Chronic anemia No evidence of active ongoing bleeding Labs consistent with AoCD Hgb stable #Electrolyte abnormalities replace prn #abnormal UA UA cx negative discontinued IV abx, no clear source of infection #epilespy Continue home Keppra and divalproex, IV formulation for now IV Ativan as needed for breakthrough seizures Neurology consult #Thrombocytopenia new, no clear source infection lyme negative Will follow labs, uptrending, possibly 2/2 infection/dehydration continues to uptrend 72-->113-->142 # Parkinson's Hold carbidopa levodopa, hold trihexyphenidyl DVT prophylaxis Heparin subcu Full code for now Admission and Anticipated Discharge Date Admission Date: June 07, 2025 Subjective 06/11/2025 The patient was seen and examined in the medical floor He remains confused with agitation at times, trying to come out of Bed and requiring one-to-one sitter Trying to take out medical lines and has been requiring mittens 06/12/2025 The patient was seen and examined in medical floor He remains stable but still a little unstable in bed and trying to come out of bed and taking out IV lines Otherwise seems to be more conversant today Still requiring one-to-one sitter and mittens Review of Systems Review of Systems: Unobtainable due to cognitive status Physical Exam Physical Exam: Lying in bed with unsteadiness but not been aggressive or harmful to others Constitutional: + ill appearing, average body habitus an d + behavioral limitations Eyes: PERRL, conjunctivae normal, anicteric sclerae ENMT: external ear and nose normal, oropharynx normal Neck: trachea midline, no thyromegaly Respiratory: no respiratory distress Auscultation: lungs clear to auscultation bilaterally Cardiovascular: Rate/Rhythm: regular rate and regular rhythm; not tachycardic Heart Sounds: normal S1 and normal S2; no murmur Extremities: no edema Gastrointestinal (Abdomen): Inspection/Auscultation: normal bowel sounds; abdomen not distended Percussion/Palpation: abdomen soft; abdomen nontender Neurologic: normal touch/pain/proprioception and moves all extremities; no focal motor deficits Lymphatic: no cervical or axillary lymphadenopathy Results & Data Results & Data Vital Signs (Past 12 Hours) Vital Signs Temp Pulse Resp BP Pulse Ox O2 Del Method 06/12/25 07:12 36.3 C L 84 16 147/83 H 97 Room Air Medications Administered Current Inpatient Medications Acetaminophen (Acetaminophen 325 Mg Tab) 650 mg PO QID PRN PRN Reason: pain/fever Stop: 07/12/25 02:57 Carbidopa/Levodopa (Carbidopa/Levodopa 50/200mg Ext Rel Tab) 1 tab PO TID@0300,1200,2000 [facility] Stop: 07/07/25 03:29 Last Admin: 06/07/25 11:58 Dose: 1 tab Divalproex Sodium (Divalproex Delay Release 250 Mg Tabec) 250 mg PO BID [facility] Stop: 07/07/25 08:59 Last Admin: 06/07/25 20:37 Dose: Not Given Divalproex Sodium (Divalproex Delay Release 500 Mg Tab) 1,000 mg PO BID [facility] Stop: 07/07/25 08:59 Last Admin: 06/07/25 20:37 Dose: Not Given Lorazepam 1 mg/ Syringe 1 mls @ 2 mls/min IV Q2H PRN PRN Reason: Breakthrough Seizures Stop: 07/07/25 03:01 Last Admin: 06/12/25 05:00 Dose: 2 mls/min Folic Acid 1 mg/ Syringe 10 mls @ 5 mls/min IV QAM [facility] Stop: 07/08/25 08:59 Last Admin: 06/12/25 08:54 Dose: 5 mls/min Valproic Acid 1,250 mg/ (Dextrose) 112.5 mls @ 112.5 mls/hr IV BID [facility] Stop: 07/08/25 08:59 Last Infusion: 06/12/25 10:22 Dose: Infused Lorazepam 1 mg/ Syringe 1 mls @ 2 mls/min IV Q8H PRN PRN Reason: Anxiety/Agitation Stop: 07/08/25 18:20 Last Admin: 06/10/25 12:55 Dose: 2 mls/min Thiamine HCl 500 mg/ Sodium (Chloride) 55 mls @ 210 mls/hr IV Q8H [facility] Stop: 06/13/25 07:46 Last Infusion: 06/12/25 09:15 Dose: Infused Levetiracetam (Levetiracetam 500 Mg Tab) 500 mg PO BID [facility] Stop: 07/07/25 08:59 Last Admin: 06/07/25 09:00 Dose: 500 mg Levetiracetam (Levetiracetam 500 Mg/5 Ml Vial) 500 mg IV Q12H [facility] Stop: 07/07/25 20:44 Last Admin: 06/12/25 08:54 Dose: 500 mg Melatonin (Melatonin 3 Mg Tab) 3 mg PO HS PRN PRN Reason: Sleep Stop: 07/12/25 02:59 Nitroglycerin (Nitroglycerin Sl 0.4 Mg/Tab Tab) 0.4 mg SL Q5M PRN PRN Reason: Chest Pain Stop: 07/07/25 03:01 Quetiapine Fumarate (Quetiapine Fumarate 25 Mg Tablet) 25 mg PO HS [facility] Stop: 07/08/25 20:59 Last Admin: 06/11/25 20:10 Dose: 25 mg
[2025-06-12] MEDS: ACETAMINOPHEN 325 MG TAB PO PRN (20:04)
[2025-06-12] MEDS: MELATONIN 3 MG TAB PO PRN (21:13)
[2025-06-13 06:22] LABS: Hematocrit (blood only) 31.3 % (42.0-52.0); Hemoglobin 10.3 g/dl (14.0-18.0); Immature Granulocytes # (auto) 0.07 K/uL (0.01-0.20); Immature Granulocytes % (auto) 0.9 %; Mean Corpuscular Hemoglobin 28.5 pg (25.0-34.0); Mean Corpuscular Volume 86.7 fL (80.0-100.0); Platelet Count 224 K/uL (130-400); RDW Standard Deviation 45.4 fL (36.4-46.3); Red Blood Count 3.61 M/uL (4.70-6.10); White Blood Count 8.03 K/ul (4.8-10.8)
[2025-06-13 06:44] LABS: Anion Gap 8.0 (3-11); Blood Urea Nitrogen 13.0 mg/dl (6-23); Calcium 8.9 mg/dl (8.6-10.3); Carbon Dioxide 28.0 mmol/L (21-32); Chloride 99.0 mmol/L (98-107); Creatinine Clr Calc Pharmacy 118.0 ml/min; Glucose 92.0 mg/dl (70-99(Fasting)); Magnesium 1.5 mg/dl (1.7-2.4); Potassium 4.1 mmol/L (3.5-5.1); Sodium 135.0 mmol/L (136-145)
[2025-06-13] MEDS: MAGNESIUM SULFATE / D5W 1 GM/100 ML BAG IV SCH (09:36)
[2025-06-13] MEDS: POLYETHYLENE (MIRALAX) 17 GM PACK PO SCH (11:27)
--- NOTE | 2025-06-13 14:37 | Hospitalist Progress Note ---
Date of Service June 13, 2025 Assessment & Plan (1) AMS (altered mental status): Plan: In summary, 60-year-old male with past medical history significant for generalized nonconvulsive epilepsy, juvenile seizure disorder, cephalgia, migraine variant, Parkinson disease, history of tobacco abuse, history of mixed action and resting tremor admitted for acute metabolic encephalopathy with superimposed delirium. Per family patient has been declining over course of last year. Patient noted with urinary retention--rodriguez in place. Patient more calm with use of ativan IV prn, possible reaction/akathisia from Zyprexa. Able to eat with assistance 06/08 and take po seroquel, but will keep iv meds as is given unreliable/inconsistent with accepting po intake. #Acute metabolic encephalopathy, multifactorial likely secondary to dehydration/possible uti #Superimposed delirium #Parkinsons disease CT head, face CT, CT cervical spine: Chest x-ray, CT abdomen pelvis no acute findings No evidence of infection, B12 and folate levels are normal UA negative for nitrate and WBC but shows 2+ bacteria,Cultures negative Folate 3.08, sp IV replacement TSH normal at 1.4 Valproic acid level mildly elevated--discussed with neurology, not likely to contribute Keppra level Is normal ammonia 55 MRI without acute process Neurology suspects progression of PD Psychiatry consulted -AVOID ZYPREXA, can cause akathisia -IV ativan for agitation -1-on-1 prn -Started on Seroquel 25mg qhs, plan to titrate up to 25mg BID for behavioral management as needed -EKG ordered daily for now for qtc monitoring -Continue with delirium prevention measures: raising blinds during the day, closing at night, frequent re-orientation, contact with family/friends, explaining procedures/nursing care measures prior to physical contact, correct any hearing and visual impairments -For behavioral emergency: ativan 0.5 or 1 mg IV or IM for agitation. Caution this could worsen delirium. If this occurs consider use of ICU/Precedex given concern of antipsychotic use with his Parkinson's disease. Remains hemodynamically stable, confused and occasional agitation Requiring one-to-one sitter and also mittens to prevent taking out of IV lines and coming out of bed Clinically much better and does not require any more mittens Has been communicating more but he still has unsteadiness involving the extremities Medications have been changed to oral Vitamin B1 level is low Could have an cephalopathy -Warnicke and cephalopathy due to low vitamin B1 level Will start high-dose of thiamine intravenously and see if any improvement- IV thiamine 500 mg 3 times daily Seems a little better and will continue high-dose of thiamine for a day or 2 #Chronic anemia No evidence of active ongoing bleeding Labs consistent with AoCD Hgb stable #Electrolyte abnormalities replace prn Magnesium supplemented intravenously #abnormal UA UA cx negative discontinued IV abx, no clear source of infection #epilespy Continue home Keppra and divalproex, IV formulation for now IV Ativan as needed for breakthrough seizures Neurology consultappreciate input and recommendation #Thrombocytopenia new, no clear source infection lyme negative Will follow labs, uptrending, possibly 2/2 infection/dehydration continues to uptrend 72-->113-->142 # Parkinson's Hold carbidopa levodopa, hold trihexyphenidyl DVT prophylaxis Heparin subcu Full code for now Admission and Anticipated Discharge Date Admission Date: June 07, 2025 Subjective 06/11/2025 The patient was seen and examined in the medical floor He remains confused with agitation at times, trying to come out of Bed and requiring one-to-one sitter Trying to take out medical lines and has been requiring mittens 06/12/2025 The patient was seen and examined in medical floor He remains stable but still a little unstable in bed and trying to come out of bed and taking out IV lines Otherwise seems to be more conversant today Still requiring one-to-one sitter and mittens 06/13/2025 The patient was seen and examined in medical floor He is much better today and trying to converse normally Still remains unsteady in bed and wants to come out of bed and has been requiring one-to-one sitter Review of Systems Review of Systems: Unobtainable Physical Exam Physical Exam: Lying in bed with unsteadiness but not been aggressive or harmful to others Constitutional: + ill appearing, average body habitus an d + behavioral limitations Eyes: PERRL, conjunctivae normal, anicteric sclerae ENMT: external ear and nose normal, oropharynx normal Neck: trachea midline, no thyromegaly Respiratory: no respiratory distress Auscultation: lungs clear to auscultation bilaterally Cardiovascular: Rate/Rhythm: regular rate and regular rhythm; not tachycardic Heart Sounds: normal S1 and normal S2; no murmur Extremities: no edema Gastrointestinal (Abdomen): Inspection/Auscultation: normal bowel sounds; abdomen not distended Percussion/Palpation: abdomen soft; abdomen nontender Neurologic: normal touch/pain/proprioception and moves all extremities; no focal motor deficits Lymphatic: no cervical or axillary lymphadenopathy Results & Data Results & Data Vital Signs (Past 12 Hours) Vital Signs Temp Pulse Resp BP Pulse Ox O2 Del Method 06/13/25 08:00 36.5 C 90 20 147/77 H 99 Room Air Laboratory Results Short CBC 06/13/25 Range/Units 05:57 WBC 8.03 (4.8-10.8) K/ul Hgb 10.3 L (14.0-18.0) g/dl Hct 31.3 L (42.0-52.0) % Plt Count 224 (130-400) K/uL BMP 06/13/25 05:57 Sodium 135 L Potassium 4.1 Chloride 99 Carbon Dioxide 28 BUN 13 Creatinine 0.56 L Glucose 92 Calcium 8.9 Medications Administered Current Inpatient Medications Acetaminophen (Acetaminophen 325 Mg Tab) 650 mg PO QID PRN PRN Reason: pain/fever Stop: 07/12/25 02:57 Last Admin: 06/13/25 03:55 Dose: 650 mg Carbidopa/Levodopa (Carbidopa/Levodopa 50/200mg Ext Rel Tab) 1 tab PO TID@0300,1200,2000 [facility] Stop: 07/07/25 03:29 Last Admin: 06/07/25 11:58 Dose: 1 tab Divalproex Sodium (Divalproex Delay Release 250 Mg Tabec) 250 mg PO BID [facility] Stop: 07/07/25 08:59 Last Admin: 06/07/25 20:37 Dose: Not Given Divalproex Sodium (Divalproex Delay Release 500 Mg Tab) 1,000 mg PO BID [facility] Stop: 07/07/25 08:59 Last Admin: 06/07/25 20:37 Dose: Not Given Folic Acid (Folic Acid 1 Mg Tab) 1 mg PO QAM [facility] Stop: 07/14/25 08:59 Lorazepam 1 mg/ Syringe 1 mls @ 2 mls/min IV Q2H PRN PRN Reason: Breakthrough Seizures Stop: 07/07/25 03:01 Last Admin: 06/12/25 05:00 Dose: 2 mls/min Lorazepam 1 mg/ Syringe 1 mls @ 2 mls/min IV Q8H PRN PRN Reason: Anxiety/Agitation Stop: 07/08/25 18:20 Last Admin: 06/10/25 12:55 Dose: 2 mls/min Levetiracetam (Levetiracetam 500 Mg Tab) 500 mg PO BID [facility] Stop: 07/07/25 08:59 Last Admin: 06/07/25 09:00 Dose: 500 mg Melatonin (Melatonin 3 Mg Tab) 3 mg PO HS PRN PRN Reason: Sleep Stop: 07/12/25 02:59 Last Admin: 06/12/25 21:13 Dose: 3 mg Nitroglycerin (Nitroglycerin Sl 0.4 Mg/Tab Tab) 0.4 mg SL Q5M PRN PRN Reason: Chest Pain Stop: 07/07/25 03:01 Polyethylene Glycol (Polyethylene (Miralax) 17 Gm Pack) 17 gm PO DAILY [facility] Stop: 07/13/25 10:29 Last Admin: 06/13/25 11:27 Dose: 17 gm Quetiapine Fumarate (Quetiapine Fumarate 25 Mg Tablet) 25 mg PO HS [facility] Stop: 07/08/25 20:59 Last Admin: 06/12/25 20:05 Dose: 25 mg
[2025-06-14] MEDS: FOLIC ACID 1 MG TAB PO SCH (08:26)
[2025-06-14] MEDS: TAMSULOSIN HCL 0.4 MG CAP PO SCH (12:06)
--- NOTE | 2025-06-14 15:10 | Hospitalist Progress Note ---
Date of Service June 14, 2025 Assessment & Plan (1) AMS (altered mental status): Plan: In summary, 60-year-old male with past medical history significant for generalized nonconvulsive epilepsy, juvenile seizure disorder, cephalgia, migraine variant, Parkinson disease, history of tobacco abuse, history of mixed action and resting tremor admitted for acute metabolic encephalopathy with superimposed delirium. Per family patient has been declining over course of last year. Patient noted with urinary retention--rodriguez in place. Patient more calm with use of ativan IV prn, possible reaction/akathisia from Zyprexa. Able to eat with assistance 06/08 and take po seroquel, but will keep iv meds as is given unreliable/inconsistent with accepting po intake. #Acute metabolic encephalopathy, multifactorial likely secondary to dehydration/possible uti #Superimposed delirium #Parkinsons disease CT head, face CT, CT cervical spine: Chest x-ray, CT abdomen pelvis no acute findings No evidence of infection, B12 and folate levels are normal UA negative for nitrate and WBC but shows 2+ bacteria,Cultures negative Folate 3.08, sp IV replacement TSH normal at 1.4 Valproic acid level mildly elevated--discussed with neurology, not likely to contribute Keppra level Is normal ammonia 55 MRI without acute process Neurology suspects progression of PD Psychiatry consulted -AVOID ZYPREXA, can cause akathisia -IV ativan for agitation -1-on-1 prn -Started on Seroquel 25mg qhs, plan to titrate up to 25mg BID for behavioral management as needed -EKG ordered daily for now for qtc monitoring -Continue with delirium prevention measures: raising blinds during the day, closing at night, frequent re-orientation, contact with family/friends, explaining procedures/nursing care measures prior to physical contact, correct any hearing and visual impairments -For behavioral emergency: ativan 0.5 or 1 mg IV or IM for agitation. Caution this could worsen delirium. If this occurs consider use of ICU/Precedex given concern of antipsychotic use with his Parkinson's disease. Remains hemodynamically stable, confused and occasional agitation Requiring one-to-one sitter and also mittens to prevent taking out of IV lines and coming out of bed Clinically much better and does not require any more mittens Has been communicating more but he still has unsteadiness involving the extremities Medications have been changed to oral He has improved a lot and has been conversing normally Will get PT OT evaluation and plan for discharge through case management Vitamin B1 level is low Could have an cephalopathy -Warnicke and cephalopathy due to low vitamin B1 level Will start high-dose of thiamine intravenously and see if any improvement- IV thiamine 500 mg 3 times daily Seems a little better and will continue high-dose of thiamine for a day or 2 With changes thiamine maintain a dose from tomorrow #Chronic anemia No evidence of active ongoing bleeding Labs consistent with AoCD Hgb stable #Electrolyte abnormalities replace prn Magnesium supplemented intravenously Will check electrolytes regularly #abnormal UA UA cx negative discontinued IV abx, no clear source of infection #epilespy Continue home Keppra and divalproex, IV formulation for now IV Ativan as needed for breakthrough seizures Neurology consultappreciate input and recommendation #Thrombocytopenia new, no clear source infection lyme negative Will follow labs, uptrending, possibly 2/2 infection/dehydration continues to uptrend 72-->113-->142 # Parkinson's Hold carbidopa levodopa, hold trihexyphenidyl DVT prophylaxis Heparin subcu Full code for now Admission and Anticipated Discharge Date Admission Date: June 07, 2025 Subjective 06/11/2025 The patient was seen and examined in the medical floor He remains confused with agitation at times, trying to come out of Bed and requiring one-to-one sitter Trying to take out medical lines and has been requiring mittens 06/12/2025 The patient was seen and examined in medical floor He remains stable but still a little unstable in bed and trying to come out of bed and taking out IV lines Otherwise seems to be more conversant today Still requiring one-to-one sitter and mittens 06/13/2025 The patient was seen and examined in medical floor He is much better today and trying to converse normally Still remains unsteady in bed and wants to come out of bed and has been requiring one-to-one sitter 06/14/2025 Patient was seen and examined in medical floor He has been conversing more and almost normally Complains to have hypogastric pain secondary to catheter and wants it out Still remains unsteady in bed and wants to come out and requiring one-to-one sitter Review of Systems Review of Systems: Unobtainable Physical Exam Physical Exam: Lying in bed with unsteadiness but not been aggressive or harmful to others Constitutional: + ill appearing, average body habitus an d + behavioral limitations Eyes: PERRL, conjunctivae normal, anicteric sclerae ENMT: external ear and nose normal, oropharynx normal Neck: trachea midline, no thyromegaly Respiratory: no respiratory distress Auscultation: lungs clear to auscultation bilaterally Cardiovascular: Rate/Rhythm: regular rate and regular rhythm; not tachycardic Heart Sounds: normal S1 and normal S2; no murmur Extremities: no edema Gastrointestinal (Abdomen): Inspection/Auscultation: normal bowel sounds; abdomen not distended Percussion/Palpation: abdomen soft; abdomen nontender Neurologic: normal touch/pain/proprioception and moves all extremities; no focal motor deficits Lymphatic: no cervical or axillary lymphadenopathy Results & Data Results & Data Vital Signs (Past 12 Hours) Vital Signs Temp Pulse Resp BP Pulse Ox O2 Del Method 06/14/25 09:30 Room Air 06/14/25 08:00 36.6 C 93 H 18 150/86 H 98 Room Air Medications Administered Current Inpatient Medications Acetaminophen (Acetaminophen 325 Mg Tab) 650 mg PO QID PRN PRN Reason: pain/fever Stop: 07/12/25 02:57 Last Admin: 06/14/25 01:29 Dose: 650 mg Carbidopa/Levodopa (Carbidopa/Levodopa 50/200mg Ext Rel Tab) 1 tab PO TID@0300,1200,2000 [facility] Stop: 07/07/25 03:29 Last Admin: 06/07/25 11:58 Dose: 1 tab Divalproex Sodium (Divalproex Delay Release 250 Mg Tabec) 250 mg PO BID [facility] Stop: 07/07/25 08:59 Last Admin: 06/14/25 08:25 Dose: 250 mg Divalproex Sodium (Divalproex Delay Release 500 Mg Tab) 1,000 mg PO BID [facility] Stop: 07/07/25 08:59 Last Admin: 06/14/25 08:26 Dose: 1,000 mg Folic Acid (Folic Acid 1 Mg Tab) 1 mg PO QAM [facility] Stop: 07/14/25 08:59 Last Admin: 06/14/25 08:26 Dose: 1 mg Lorazepam 1 mg/ Syringe 1 mls @ 2 mls/min IV Q2H PRN PRN Reason: Breakthrough Seizures Stop: 07/07/25 03:01 Last Admin: 06/12/25 05:00 Dose: 2 mls/min Lorazepam 1 mg/ Syringe 1 mls @ 2 mls/min IV Q8H PRN PRN Reason: Anxiety/Agitation Stop: 07/08/25 18:20 Last Admin: 06/10/25 12:55 Dose: 2 mls/min Levetiracetam (Levetiracetam 500 Mg Tab) 500 mg PO BID [facility] Stop: 07/07/25 08:59 Last Admin: 06/14/25 08:26 Dose: 500 mg Melatonin (Melatonin 3 Mg Tab) 3 mg PO HS PRN PRN Reason: Sleep Stop: 07/12/25 02:59 Last Admin: 06/13/25 20:47 Dose: 3 mg Nitroglycerin (Nitroglycerin Sl 0.4 Mg/Tab Tab) 0.4 mg SL Q5M PRN PRN Reason: Chest Pain Stop: 07/07/25 03:01 Polyethylene Glycol (Polyethylene (Miralax) 17 Gm Pack) 17 gm PO DAILY [facility] Stop: 07/13/25 10:29 Last Admin: 06/14/25 08:26 Dose: Not Given Quetiapine Fumarate (Quetiapine Fumarate 25 Mg Tablet) 25 mg PO HS [facility] Stop: 07/08/25 20:59 Last Admin: 06/13/25 20:47 Dose: 25 mg Tamsulosin HCl (Tamsulosin Hcl 0.4 Mg Cap) 0.4 mg PO QAM [facility] Stop: 07/14/25 11:14 Last Admin: 06/14/25 12:06 Dose: 0.4 mg
[2025-06-15] MEDS: KETOROLAC TROMETHAMINE 15 MG/ML VIAL IV ONE (05:49)
[2025-06-15] MEDS: ACETAMINOPHEN 1,000 MG/100 ML VIAL IV STA (07:45)
[2025-06-15] MEDS: THIAMINE HCL 100 MG TAB PO SCH (08:36)
[2025-06-15 08:57] LABS: Hematocrit (blood only) 33.8 % (42.0-52.0); Hemoglobin 11.2 g/dl (14.0-18.0); Immature Granulocytes # (auto) 0.08 K/uL (0.01-0.20); Immature Granulocytes % (auto) 0.9 %; Mean Corpuscular Hemoglobin 29.6 pg (25.0-34.0); Mean Corpuscular Volume 89.4 fL (80.0-100.0); Platelet Count 305 K/uL (130-400); RDW Standard Deviation 48.3 fL (36.4-46.3); Red Blood Count 3.78 M/uL (4.70-6.10); White Blood Count 8.78 K/ul (4.8-10.8)
[2025-06-15 09:13] LABS: Anion Gap 8.0 (3-11); Blood Urea Nitrogen 19.0 mg/dl (6-23); Calcium 9.3 mg/dl (8.6-10.3); Carbon Dioxide 30.0 mmol/L (21-32); Chloride 96.0 mmol/L (98-107); Creatinine Clr Calc Pharmacy 88.1 ml/min; Glucose 147.0 mg/dl (70-99(Fasting)); Magnesium 1.7 mg/dl (1.7-2.4); Potassium 4.4 mmol/L (3.5-5.1); Sodium 134.0 mmol/L (136-145)
--- NOTE | 2025-06-15 14:35 | Hospitalist Progress Note ---
Date of Service June 15, 2025 Assessment & Plan (1) AMS (altered mental status): Plan: In summary, 60-year-old male with past medical history significant for generalized nonconvulsive epilepsy, juvenile seizure disorder, cephalgia, migraine variant, Parkinson disease, history of tobacco abuse, history of mixed action and resting tremor admitted for acute metabolic encephalopathy with superimposed delirium. Per family patient has been declining over course of last year. Patient noted with urinary retention--rodriguez in place. Patient more calm with use of ativan IV prn, possible reaction/akathisia from Zyprexa. Able to eat with assistance 06/08 and take po seroquel, but will keep iv meds as is given unreliable/inconsistent with accepting po intake. #Acute metabolic encephalopathy, multifactorial likely secondary to dehydration/possible uti #Superimposed delirium #Parkinsons disease CT head, face CT, CT cervical spine: Chest x-ray, CT abdomen pelvis no acute findings No evidence of infection, B12 and folate levels are normal UA negative for nitrate and WBC but shows 2+ bacteria,Cultures negative Folate 3.08, sp IV replacement TSH normal at 1.4 Valproic acid level mildly elevated--discussed with neurology, not likely to contribute Keppra level Is normal ammonia 55 MRI without acute process Neurology suspects progression of PD Psychiatry consulted -AVOID ZYPREXA, can cause akathisia -IV ativan for agitation -1-on-1 prn -Started on Seroquel 25mg qhs, plan to titrate up to 25mg BID for behavioral management as needed -EKG ordered daily for now for qtc monitoring -Continue with delirium prevention measures: raising blinds during the day, closing at night, frequent re-orientation, contact with family/friends, explaining procedures/nursing care measures prior to physical contact, correct any hearing and visual impairments -For behavioral emergency: ativan 0.5 or 1 mg IV or IM for agitation. Caution this could worsen delirium. If this occurs consider use of ICU/Precedex given concern of antipsychotic use with his Parkinson's disease. Remains hemodynamically stable, confused and occasional agitation Requiring one-to-one sitter and also mittens to prevent taking out of IV lines and coming out of bed Clinically much better and does not require any more mittens Has been communicating more but he still has unsteadiness involving the extremities Medications have been changed to oral He has improved a lot and has been conversing normally Will get PT OT evaluation and plan for discharge through case management He has been much better and complains to have parkinsonian symptoms He will be started with Sinemet as before and also will get PT OT evaluation Vitamin B1 level is low Could have an cephalopathy -Warnicke and cephalopathy due to low vitamin B1 level Will start high-dose of thiamine intravenously and see if any improvement- IV thiamine 500 mg 3 times daily Seems a little better and will continue high-dose of thiamine for a day or 2 With changes thiamine maintain a dose from tomorrow He will get thiamine at a regular dose #Chronic anemia No evidence of active ongoing bleeding Labs consistent with AoCD Hgb stable #Electrolyte abnormalities replace prn Magnesium supplemented intravenously Will check electrolytes regularly Electrolytes have been normalized #abnormal UA UA cx negative discontinued IV abx, no clear source of infection #epilespy Continue home Keppra and divalproex, IV formulation for now IV Ativan as needed for breakthrough seizures Neurology consultappreciate input and recommendation #Thrombocytopenia new, no clear source infection lyme negative Will follow labs, uptrending, possibly 2/2 infection/dehydration continues to uptrend 72-->113-->142 # Parkinson's Hold carbidopa levodopa, hold trihexyphenidyl Will restart Parkinson's treatment and keep holding trihexyphenidyl DVT prophylaxis Heparin subcu Full code for now Admission and Anticipated Discharge Date Admission Date: June 07, 2025 Subjective 06/11/2025 The patient was seen and examined in the medical floor He remains confused with agitation at times, trying to come out of Bed and requiring one-to-one sitter Trying to take out medical lines and has been requiring mittens 06/12/2025 The patient was seen and examined in medical floor He remains stable but still a little unstable in bed and trying to come out of bed and taking out IV lines Otherwise seems to be more conversant today Still requiring one-to-one sitter and mittens 06/13/2025 The patient was seen and examined in medical floor He is much better today and trying to converse normally Still remains unsteady in bed and wants to come out of bed and has been requiring one-to-one sitter 06/14/2025 Patient was seen and examined in medical floor He has been conversing more and almost normally Complains to have hypogastric pain secondary to catheter and wants it out Still remains unsteady in bed and wants to come out and requiring one-to-one sitter 06/15/2025 The patient was seen and examined in medical floor He has been much better and conversing normally Has tremors secondary to Parkinson disease Denies any other significant symptoms and the pain is reasonably controlled with intravenous Tylenol Review of Systems Review of Systems: All systems reviewed and are unremarkable except as noted below Physical Exam Physical Exam: Lying in bed with unsteadiness but not been aggressive or harmful to others Constitutional: + ill appearing, average body habitus an d + behavioral limitations Eyes: PERRL, conjunctivae normal, anicteric sclerae ENMT: external ear and nose normal, oropharynx normal Neck: trachea midline, no thyromegaly Respiratory: no respiratory distress Auscultation: lungs clear to auscultation bilaterally Cardiovascular: Rate/Rhythm: regular rate and regular rhythm; not tachycardic Heart Sounds: normal S1 and normal S2; no murmur Extremities: no edema Gastrointestinal (Abdomen): Inspection/Auscultation: normal bowel sounds; abdomen not distended Percussion/Palpation: abdomen soft; abdomen nontender Musculoskeletal: No acute arthritis involving any of the joint Neurologic: normal touch/pain/proprioception and moves all extremities; no focal motor deficits Significant tremors secondary to Parkinson disease Lymphatic: no cervical or axillary lymphadenopathy Results & Data Results & Data Vital Signs (Past 12 Hours) Vital Signs Temp Pulse BP Pulse Ox O2 Del Method 06/15/25 07:05 36.4 C L 91 H 132/84 97 Room Air Laboratory Results Short CBC 06/15/25 Range/Units 08:38 WBC 8.78 (4.8-10.8) K/ul Hgb 11.2 L (14.0-18.0) g/dl Hct 33.8 L (42.0-52.0) % Plt Count 305 (130-400) K/uL BMP 06/15/25 08:38 Sodium 134 L Potassium 4.4 Chloride 96 L Carbon Dioxide 30 BUN 19 Creatinine 0.75 Glucose 147 H Calcium 9.3 Medications Administered Current Inpatient Medications Acetaminophen (Acetaminophen 325 Mg Tab) 650 mg PO QID PRN PRN Reason: pain/fever Stop: 07/12/25 02:57 Last Admin: 06/15/25 02:03 Dose: 650 mg Carbidopa/Levodopa (Carbidopa/Levodopa 50/200mg Ext Rel Tab) 1 tab PO TID@0300,1200,2000 [facility] Stop: 07/07/25 03:29 Last Admin: 06/15/25 12:08 Dose: 1 tab Divalproex Sodium (Divalproex Delay Release 250 Mg Tabec) 250 mg PO BID [facility] Stop: 07/07/25 08:59 Last Admin: 06/15/25 08:29 Dose: 250 mg Divalproex Sodium (Divalproex Delay Release 500 Mg Tab) 1,000 mg PO BID [facility] Stop: 07/07/25 08:59 Last Admin: 06/15/25 08:27 Dose: 1,000 mg Folic Acid (Folic Acid 1 Mg Tab) 1 mg PO QAM [facility] Stop: 07/14/25 08:59 Last Admin: 06/15/25 08:29 Dose: 1 mg Lorazepam 1 mg/ Syringe 1 mls @ 2 mls/min IV Q2H PRN PRN Reason: Breakthrough Seizures Stop: 07/07/25 03:01 Last Admin: 06/12/25 05:00 Dose: 2 mls/min Lorazepam 1 mg/ Syringe 1 mls @ 2 mls/min IV Q8H PRN PRN Reason: Anxiety/Agitation Stop: 07/08/25 18:20 Last Admin: 06/10/25 12:55 Dose: 2 mls/min Levetiracetam (Levetiracetam 500 Mg Tab) 500 mg PO BID [facility] Stop: 07/07/25 08:59 Last Admin: 06/15/25 08:28 Dose: 500 mg Melatonin (Melatonin 3 Mg Tab) 3 mg PO HS PRN PRN Reason: Sleep Stop: 07/12/25 02:59 Last Admin: 06/14/25 20:58 Dose: 3 mg Nitroglycerin (Nitroglycerin Sl 0.4 Mg/Tab Tab) 0.4 mg SL Q5M PRN PRN Reason: Chest Pain Stop: 07/07/25 03:01 Polyethylene Glycol (Polyethylene (Miralax) 17 Gm Pack) 17 gm PO DAILY [facility] Stop: 07/13/25 10:29 Last Admin: 06/15/25 08:29 Dose: Not Given Quetiapine Fumarate (Quetiapine Fumarate 25 Mg Tablet) 25 mg PO HS [facility] Stop: 07/08/25 20:59 Last Admin: 06/14/25 20:58 Dose: 25 mg Tamsulosin HCl (Tamsulosin Hcl 0.4 Mg Cap) 0.4 mg PO [facility] Stop: 07/14/25 11:14 Last Admin: 06/15/25 08:28 Dose: 0.4 mg Thiamine HCl (Thiamine Hcl 100 Mg Tab) 100 mg PO [facility] Stop: 07/15/25 08:59 Last Admin: 06/15/25 08:36 Dose: 100 mg
--- NOTE | 2025-06-16 14:57 | Hospitalist Progress Note ---
Date of Service June 16, 2025 Assessment & Plan (1) AMS (altered mental status): Plan: In summary, 60-year-old male with past medical history significant for generalized nonconvulsive epilepsy, juvenile seizure disorder, cephalgia, migraine variant, Parkinson disease, history of tobacco abuse, history of mixed action and resting tremor admitted for acute metabolic encephalopathy with superimposed delirium. Per family patient has been declining over course of last year. Patient noted with urinary retention--rodriguez in place. Patient more calm with use of ativan IV prn, possible reaction/akathisia from Zyprexa. Able to eat with assistance 06/08 and take po seroquel, but will keep iv meds as is given unreliable/inconsistent with accepting po intake. #Acute metabolic encephalopathy, multifactorial likely secondary to dehydration/possible uti #Superimposed delirium #Parkinsons disease CT head, face CT, CT cervical spine: Chest x-ray, CT abdomen pelvis no acute findings No evidence of infection, B12 and folate levels are normal UA negative for nitrate and WBC but shows 2+ bacteria,Cultures negative Folate 3.08, sp IV replacement TSH normal at 1.4 Valproic acid level mildly elevated--discussed with neurology, not likely to contribute Keppra level Is normal ammonia 55 MRI without acute process Neurology suspects progression of PD Psychiatry consulted -AVOID ZYPREXA, can cause akathisia -IV ativan for agitation -1-on-1 prn -Started on Seroquel 25mg qhs, plan to titrate up to 25mg BID for behavioral management as needed -EKG ordered daily for now for qtc monitoring -Continue with delirium prevention measures: raising blinds during the day, closing at night, frequent re-orientation, contact with family/friends, explaining procedures/nursing care measures prior to physical contact, correct any hearing and visual impairments -For behavioral emergency: ativan 0.5 or 1 mg IV or IM for agitation. Caution this could worsen delirium. If this occurs consider use of ICU/Precedex given concern of antipsychotic use with his Parkinson's disease. Remains hemodynamically stable, confused and occasional agitation Requiring one-to-one sitter and also mittens to prevent taking out of IV lines and coming out of bed Clinically much better and does not require any more mittens Has been communicating more but he still has unsteadiness involving the extremities Medications have been changed to oral He has improved a lot and has been conversing normally Will get PT OT evaluation and plan for discharge through case management He has been much better and complains to have parkinsonian symptoms He will be started with Sinemet as before and also will get PT OT evaluation Clinically much better and has been communicating normally Pleasantly confused with unsteadiness and trying to come out of bed Will ask psychiatrist to reevaluate and adjust medications if needed Vitamin B1 level is low Could have an cephalopathy -Warnicke and cephalopathy due to low vitamin B1 level Will start high-dose of thiamine intravenously and see if any improvement- IV thiamine 500 mg 3 times daily Seems a little better and will continue high-dose of thiamine for a day or 2 With changes thiamine maintain a dose from tomorrow He will get thiamine at a regular dose #Chronic anemia No evidence of active ongoing bleeding Labs consistent with AoCD Hgb stable #Electrolyte abnormalities replace prn Magnesium supplemented intravenously Will check electrolytes regularly Electrolytes have been normalized #abnormal UA UA cx negative discontinued IV abx, no clear source of infection #epilespy Continue home Keppra and divalproex, IV formulation for now IV Ativan as needed for breakthrough seizures Neurology consultappreciate input and recommendation #Thrombocytopenia new, no clear source infection lyme negative Will follow labs, uptrending, possibly 2/2 infection/dehydration continues to uptrend 72-->113-->142 # Parkinson's Hold carbidopa levodopa, hold trihexyphenidyl Will restart Parkinson's treatment and keep holding trihexyphenidyl Parkinsonian symptoms are improving DVT prophylaxis Heparin subcu Full code for now Admission and Anticipated Discharge Date Admission Date: June 07, 2025 Subjective 06/11/2025 The patient was seen and examined in the medical floor He remains confused with agitation at times, trying to come out of Bed and requiring one-to-one sitter Trying to take out medical lines and has been requiring mittens 06/12/2025 The patient was seen and examined in medical floor He remains stable but still a little unstable in bed and trying to come out of bed and taking out IV lines Otherwise seems to be more conversant today Still requiring one-to-one sitter and mittens 06/13/2025 The patient was seen and examined in medical floor He is much better today and trying to converse normally Still remains unsteady in bed and wants to come out of bed and has been requiring one-to-one sitter 06/14/2025 Patient was seen and examined in medical floor He has been conversing more and almost normally Complains to have hypogastric pain secondary to catheter and wants it out Still remains unsteady in bed and wants to come out and requiring one-to-one sitter 06/15/2025 The patient was seen and examined in medical floor He has been much better and conversing normally Has tremors secondary to Parkinson disease Denies any other significant symptoms and the pain is reasonably controlled with intravenous Tylenol 06/16/2025 The patient was seen and examined in medical floor He has been much better still has unsteadiness Has been communicating normally and tremors are better Review of Systems Review of Systems: All systems reviewed and are unremarkable except as noted below Physical Exam Physical Exam: Lying in bed with unsteadiness but not been aggressive or harmful to others Constitutional: + ill appearing, average body habitus an d + behavioral limitations Eyes: PERRL, conjunctivae normal, anicteric sclerae ENMT: external ear and nose normal, oropharynx normal Neck: trachea midline, no thyromegaly Respiratory: no respiratory distress Auscultation: lungs clear to auscultation bilaterally Cardiovascular: Rate/Rhythm: regular rate and regular rhythm; not tachycardic Heart Sounds: normal S1 and normal S2; no murmur Extremities: no edema Gastrointestinal (Abdomen): Inspection/Auscultation: normal bowel sounds; abdomen not distended Percussion/Palpation: abdomen soft; abdomen nontender Neurologic: normal touch/pain/proprioception and moves all extremities; no focal motor deficits Has tremors likely secondary to Parkinson disease Lymphatic: no cervical or axillary lymphadenopathy Results & Data Results & Data Vital Signs (Past 12 Hours) Vital Signs Temp Pulse Resp BP Pulse Ox O2 Del Method 06/16/25 07:38 36.5 C 108 H 16 111/81 98 Room Air Medications Administered Current Inpatient Medications Acetaminophen (Acetaminophen 325 Mg Tab) 650 mg PO QID PRN PRN Reason: pain/fever Stop: 07/12/25 02:57 Last Admin: 06/16/25 08:21 Dose: 650 mg Carbidopa/Levodopa (Carbidopa/Levodopa 50/200mg Ext Rel Tab) 1 tab PO TID@0300,1200,2000 [facility] Stop: 07/07/25 03:29 Last Admin: 06/16/25 11:24 Dose: 1 tab Divalproex Sodium (Divalproex Delay Release 250 Mg Tabec) 250 mg PO BID [facility] Stop: 07/07/25 08:59 Last Admin: 06/16/25 08:19 Dose: 250 mg Divalproex Sodium (Divalproex Delay Release 500 Mg Tab) 1,000 mg PO BID [facility] Stop: 07/07/25 08:59 Last Admin: 06/16/25 08:19 Dose: 1,000 mg Folic Acid (Folic Acid 1 Mg Tab) 1 mg PO QAM [facility] Stop: 07/14/25 08:59 Last Admin: 06/16/25 08:19 Dose: 1 mg Lorazepam 1 mg/ Syringe 1 mls @ 2 mls/min IV Q2H PRN PRN Reason: Breakthrough Seizures Stop: 07/07/25 03:01 Last Admin: 06/12/25 05:00 Dose: 2 mls/min Lorazepam 1 mg/ Syringe 1 mls @ 2 mls/min IV Q8H PRN PRN Reason: Anxiety/Agitation Stop: 07/08/25 18:20 Last Admin: 06/10/25 12:55 Dose: 2 mls/min Levetiracetam (Levetiracetam 500 Mg Tab) 500 mg PO BID [facility] Stop: 07/07/25 08:59 Last Admin: 06/16/25 08:19 Dose: 500 mg Melatonin (Melatonin 3 Mg Tab) 3 mg PO HS PRN PRN Reason: Sleep Stop: 07/12/25 02:59 Last Admin: 06/14/25 20:58 Dose: 3 mg Nitroglycerin (Nitroglycerin Sl 0.4 Mg/Tab Tab) 0.4 mg SL Q5M PRN PRN Reason: Chest Pain Stop: 07/07/25 03:01 Polyethylene Glycol (Polyethylene (Miralax) 17 Gm Pack) 17 gm PO DAILY [facility] Stop: 07/13/25 10:29 Last Admin: 06/16/25 08:21 Dose: 17 gm Quetiapine Fumarate (Quetiapine Fumarate 25 Mg Tablet) 25 mg PO HS [facility] Stop: 07/08/25 20:59 Last Admin: 06/15/25 20:32 Dose: 25 mg Tamsulosin HCl (Tamsulosin Hcl 0.4 Mg Cap) 0.4 mg PO QAM [facility] Stop: 07/14/25 11:14 Last Admin: 06/16/25 08:19 Dose: 0.4 mg Thiamine HCl (Thiamine Hcl 100 Mg Tab) 100 mg PO [facility] Stop: 07/15/25 08:59 Last Admin: 06/16/25 08:19 Dose: 100 mg
--- NOTE | 2025-06-17 13:18 | Hospitalist Progress Note ---
Date of Service June 17, 2025 Assessment & Plan (1) AMS (altered mental status): Plan: In summary, 60-year-old male with past medical history significant for generalized nonconvulsive epilepsy, juvenile seizure disorder, cephalgia, migraine variant, Parkinson disease, history of tobacco abuse, history of mixed action and resting tremor admitted for acute metabolic encephalopathy with superimposed delirium. Per family patient has been declining over course of last year. Patient noted with urinary retention--rodriguez in place. Patient more calm with use of ativan IV prn, possible reaction/akathisia from Zyprexa. Able to eat with assistance 06/08 and take po seroquel, but will keep iv meds as is given unreliable/inconsistent with accepting po intake. #Acute metabolic encephalopathy, multifactorial likely secondary to dehydration/possible uti #Superimposed delirium #Parkinsons disease CT head, face CT, CT cervical spine: Chest x-ray, CT abdomen pelvis no acute findings No evidence of infection, B12 and folate levels are normal UA negative for nitrate and WBC but shows 2+ bacteria,Cultures negative Folate 3.08, sp IV replacement TSH normal at 1.4 Valproic acid level mildly elevated--discussed with neurology, not likely to contribute Keppra level Is normal ammonia 55 MRI without acute process Neurology suspects progression of PD Psychiatry consulted -AVOID ZYPREXA, can cause akathisia -IV ativan for agitation -1-on-1 prn -Started on Seroquel 25mg qhs, plan to titrate up to 25mg BID for behavioral management as needed -EKG ordered daily for now for qtc monitoring -Continue with delirium prevention measures: raising blinds during the day, closing at night, frequent re-orientation, contact with family/friends, explaining procedures/nursing care measures prior to physical contact, correct any hearing and visual impairments -For behavioral emergency: ativan 0.5 or 1 mg IV or IM for agitation. Caution this could worsen delirium. If this occurs consider use of ICU/Precedex given concern of antipsychotic use with his Parkinson's disease. Remains hemodynamically stable, confused and occasional agitation Requiring one-to-one sitter and also mittens to prevent taking out of IV lines and coming out of bed Clinically much better and does not require any more mittens Has been communicating more but he still has unsteadiness involving the extremities Medications have been changed to oral He has improved a lot and has been conversing normally Will get PT OT evaluation and plan for discharge through case management He has been much better and complains to have parkinsonian symptoms He will be started with Sinemet as before and also will get PT OT evaluation Clinically much better and has been communicating normally Pleasantly confused with unsteadiness and trying to come out of bed Will ask psychiatrist to reevaluate and adjust medications if needed Clinically much better and remains alert awake and oriented x 3 Having significant tremors with extrapyramidal componentsdiscussed with the neurologist and is started on trihexyphenidyl Awaiting psych evaluation for any change of his medications Will take off one-to-one sitter and continue PT and OT Vitamin B1 level is low Could have an cephalopathy -Warnicke and cephalopathy due to low vitamin B1 level Will start high-dose of thiamine intravenously and see if any improvement- IV thiamine 500 mg 3 times daily Seems a little better and will continue high-dose of thiamine for a day or 2 With changes thiamine maintain a dose from tomorrow He will get thiamine at a regular dose #Chronic anemia No evidence of active ongoing bleeding Labs consistent with AoCD Hgb stable #Electrolyte abnormalities replace prn Magnesium supplemented intravenously Will check electrolytes regularly Electrolytes have been normalized #abnormal UA UA cx negative discontinued IV abx, no clear source of infection #epilespy Continue home Keppra and divalproex, IV formulation for now IV Ativan as needed for breakthrough seizures Neurology consultappreciate input and recommendation #Thrombocytopenia new, no clear source infection lyme negative Will follow labs, uptrending, possibly 2/2 infection/dehydration continues to uptrend 72-->113-->142 # Parkinson's Hold carbidopa levodopa, hold trihexyphenidyl Will restart Parkinson's treatment and keep holding trihexyphenidyl Parkinsonian symptoms are improving DVT prophylaxis Heparin subcu Full code for now Will discuss with the POA Admission and Anticipated Discharge Date Admission Date: June 07, 2025 Subjective 06/11/2025 The patient was seen and examined in the medical floor He remains confused with agitation at times, trying to come out of Bed and requiring one-to-one sitter Trying to take out medical lines and has been requiring mittens 06/12/2025 The patient was seen and examined in medical floor He remains stable but still a little unstable in bed and trying to come out of bed and taking out IV lines Otherwise seems to be more conversant today Still requiring one-to-one sitter and mittens 06/13/2025 The patient was seen and examined in medical floor He is much better today and trying to converse normally Still remains unsteady in bed and wants to come out of bed and has been requiring one-to-one sitter 06/14/2025 Patient was seen and examined in medical floor He has been conversing more and almost normally Complains to have hypogastric pain secondary to catheter and wants it out Still remains unsteady in bed and wants to come out and requiring one-to-one sitter 06/15/2025 The patient was seen and examined in medical floor He has been much better and conversing normally Has tremors secondary to Parkinson disease Denies any other significant symptoms and the pain is reasonably controlled with intravenous Tylenol 06/16/2025 The patient was seen and examined in medical floor He has been much better still has unsteadiness Has been communicating normally and tremors are better 06/17/2025 The patient was seen and examined in medical floor He has been much better for the last 2 days Alert, awake and oriented x 3 and conversing normally Only symptoms that she has streamer's likely secondary to Parkinson disease associated with some extrapyramidal symptoms Review of Systems Review of Systems: All systems reviewed and are unremarkable except as noted below Physical Exam Physical Exam: Sitting at the edge of the bed with tremors but no other acute distress Constitutional: + ill appearing, average body habitus an d + behavioral limitations Eyes: PERRL, conjunctivae normal, anicteric sclerae ENMT: external ear and nose normal, oropharynx normal Neck: trachea midline, no thyromegaly Respiratory: no respiratory distress Auscultation: lungs clear to auscultation bilaterally Cardiovascular: Rate/Rhythm: regular rate and regular rhythm; not tachycardic Heart Sounds: normal S1 and normal S2; no murmur Extremities: no edema Gastrointestinal (Abdomen): Inspection/Auscultation: normal bowel sounds; abdomen not distended Percussion/Palpation: abdomen soft; abdomen nontender Musculoskeletal: No acute arthritis involving any of the joint Neurologic: normal touch/pain/proprioception and moves all extremities (Has significant tremors with extrapyramidal component); no focal motor deficits Lymphatic: no cervical or axillary lymphadenopathy Results & Data Results & Data Vital Signs (Past 12 Hours) Vital Signs Temp Pulse Resp BP Pulse Ox O2 Del Method 06/17/25 08:37 Room Air 06/17/25 07:01 36.4 C L 98 H 20 102/64 99 Room Air Medications Administered Current Inpatient Medications Acetaminophen (Acetaminophen 325 Mg Tab) 650 mg PO QID PRN PRN Reason: pain/fever Stop: 07/12/25 02:57 Last Admin: 06/16/25 08:21 Dose: 650 mg Carbidopa/Levodopa (Carbidopa/Levodopa 50/200mg Ext Rel Tab) 1 tab PO TID@0300,1200,2000 [facility] Stop: 07/07/25 03:29 Last Admin: 06/17/25 12:43 Dose: 1 tab Divalproex Sodium (Divalproex Delay Release 250 Mg Tabec) 250 mg PO BID [facility] Stop: 07/07/25 08:59 Last Admin: 06/17/25 08:27 Dose: 250 mg Divalproex Sodium (Divalproex Delay Release 500 Mg Tab) 1,000 mg PO BID [facility] Stop: 07/07/25 08:59 Last Admin: 06/17/25 08:29 Dose: 1,000 mg Folic Acid (Folic Acid 1 Mg Tab) 1 mg PO QAM [facility] Stop: 07/14/25 08:59 Last Admin: 06/17/25 08:29 Dose: 1 mg Lorazepam 1 mg/ Syringe 1 mls @ 2 mls/min IV Q2H PRN PRN Reason: Breakthrough Seizures Stop: 07/07/25 03:01 Last Admin: 06/12/25 05:00 Dose: 2 mls/min Lorazepam 1 mg/ Syringe 1 mls @ 2 mls/min IV Q8H PRN PRN Reason: Anxiety/Agitation Stop: 07/08/25 18:20 Last Admin: 06/10/25 12:55 Dose: 2 mls/min Levetiracetam (Levetiracetam 500 Mg Tab) 500 mg PO BID [facility] Stop: 07/07/25 08:59 Last Admin: 06/17/25 08:29 Dose: 500 mg Melatonin (Melatonin 3 Mg Tab) 3 mg PO HS PRN PRN Reason: Sleep Stop: 07/12/25 02:59 Last Admin: 06/14/25 20:58 Dose: 3 mg Nitroglycerin (Nitroglycerin Sl 0.4 Mg/Tab Tab) 0.4 mg SL Q5M PRN PRN Reason: Chest Pain Stop: 07/07/25 03:01 Polyethylene Glycol (Polyethylene (Miralax) 17 Gm Pack) 17 gm PO DAILY [facility] Stop: 07/13/25 10:29 Last Admin: 06/17/25 08:52 Dose: 17 gm Quetiapine Fumarate (Quetiapine Fumarate 25 Mg Tablet) 25 mg PO HS [facility] Stop: 07/08/25 20:59 Last Admin: 06/16/25 20:08 Dose: 25 mg Tamsulosin HCl (Tamsulosin Hcl 0.4 Mg Cap) 0.4 mg PO QAM [facility] Stop: 07/14/25 11:14 Last Admin: 06/17/25 08:29 Dose: 0.4 mg Thiamine HCl (Thiamine Hcl 100 Mg Tab) 100 mg PO QAM [facility] Stop: 07/15/25 08:59 Last Admin: 06/17/25 08:29 Dose: 100 mg Trihexyphenidyl HCl (Trihexyphenidyl Hcl 2 Mg Tab) 2 mg PO QAM [facility] Stop: 07/17/25 13:14
[2025-06-17] MEDS: TRIHEXYPHENIDYL HCL 2 MG TAB PO SCH (15:03)
--- NOTE | 2025-06-17 15:09 | Psychiatric Progress Note ---
Date of Service June 17, 2025 Impression / Recommendations Impression Diagnostically consistent with encephalopathy/delirium superimposed on Parkinson's disease with possible additional PD progression. Sounds like recent anticholinergic effects from trihexyphenidyl may have set off delirium vs new weakness from disease progression with decreased po intake and some electrolyte abnormalities. Unfortunately there are no known medications to cure or shorten the duration of delirium; rather antipsychotics are used at times to help with sleep/appetite/psychomotor agitation and hallucinations if these symptoms are causing significant distress and/or interfering with acute safety. Duration of delirium varies broadly with persistent delirium (defined as lasting for weeks or months) occurring frequently with [id number]% of patients exhibiting some symptoms of delirium at 6 months after symptom onset, see:Eunice Hernandez., Amado Han., Viktoriya Danielle.et al.Delirium.Natalie Rev Dis Primers6, 90 (2020). [email or web address]. PD is further complicated by worsening motor symptoms with most antispcyhtoics. Seroquel is preferred but only comes as a po option. Given 1-on-1 and RN chart review reports of increased physical agitation overnight, I also worry he may have experienced some akathisia from the olanzapine IM so agree with use of benzodiapines for behavioral emergencies when an IM or IV option is required. Caution that benzodiapines can sometimes worsen or peptuate delirium so monitor for response over time. Note all antipsychotic medications carry black box warning for increased risk of all-cause mortality in setting of dementia. A: Today, patient appears to have continual improvement of the delirium. He has some mild residual symptoms, including amnesia of the delirious period, some circumstantiality, and some distractibility. With delirium resolving, sometimes would consider discontinuing Seroquel. However his tremor is no worse and he is actually becoming more steady, and he continues to have mild trouble with his sleep. So I would recommend continuing Seroquel at the present dose. This could continue to be reevaluated in the future as he achieves further stabilization. No mood, anxiety, psychotic or behavioral symptoms present to suggest need for other recommendations. Overall, I spent a total of 35 minutes with this case including review of chart records, review of labwork, review of EKG QTc, direct evaluation of the patient at bedside, counseling the patient, discussion of the patient with the hospitalist provider, discussion with the psychiatric liason during clinical rounds and documentation in the electronic health record. (1) Metabolic encephalopathy: (2) Parkinson disease: (3) Epilepsy: Plan 06/17/25: - Continue Seroquel - no other changes needed, no psychiatric admission needed 06/08/25: -1-on-1 prn -Consider seroquel 12.5 mg qhs and can titrate up to 25mg BID for behavioral management as needed; would check EKG QTc routinely -Continue medical workup to rule out and treat any underlying causes contributi ng to potential delirium, avoid or limit use of deliriogenic medications (benzodiazepines, opioids, anticholinergics) -Continue with delirium prevention measures: raising blinds during the day, closing at night, frequent re-orientation, contact with family/friends, explaining procedures/nursing care measures prior to physical contact, correct any hearing and visual impairments -For behavioral emergency: ativan 0.5 or 1 mg IV or IM for agitation. Caution this could worsen delirium. If this occurs consider use of ICU/Precedex given concern of antipsychotic use with his Parkinson's disease. Interval History Identifying Information Edis Crockett is a 60 yo man with past medical history significant for generalized nonconvulsive epilepsy, juvenile seizure disorder, cephalgia migraine variant, Parkinson disease, history of tobacco use, history of mixed action and resting tremor was brought in because of confusion. Psychiatry consulted for consideration for psychiatric manifestations of Parkinson's disease. Follow up requested for an unclear reason. Chief Complaint "I feel good". Subjective Subjective Patient was seen & assessed and interval progress reviewed with psychiatric liaison, one-to-one and nurse. Chart reviewed, and progress notes indicate patient is doing "much better". I met with the patient in his room, along with the psych liaison and the [place]. Patient says he is feeling quite well. He says "earlier in the week, I was a mess." He said that because he had seizures, which leads to headaches and confusion at times. Feels he has been doing well over the last several days though. He denies any depression or anxiety. There has been no irritability or behavioral outbursts. He continues to have some trouble sleeping at night, but it is improving each day. He is becoming more stable on his feet. We did witness him take several steps and he appeared steady. He said his tremor is no worse. He estimates he has been in [facility] for 4 to 5 days, and seems to present as suggested it was actually 10. He did except that knowledge though. He was oriented to person and place. He said at first it was June 16, then corrected himself to sit and said July 16. He was oriented to year. He was a little tangential at times. He would make a comment and then veer off topic. He was easy to redirect, and did answer questions appropriately overall. Physical Exam Psychiatric Orientation: alert, oriented to person, oriented to place and oriented to time ( Oriented to year, not month) Apperance: appropriately dressed and appropriately groomed Eye Contact: + fair eye contact Motor Behavior: + tremor Parkinsonian tremor and shuffling gait. Gait appears to have improved from admission. Speech: normal rate/rhythm/volume of speech Affect: euthymic affect and mood congruent with affect; no depressed affect and no anxious affect Mood: no depressed mood and no anxious mood Euthymic Thought Process: goal directed thought process, clear/coherent thought process and + circumstantial thought process Thought Content: reality based without delusions Suicidal Thoughts: denies suicidal thoughts, denies suicidal plan and denies suicidal intent Homicidal Thoughts: denies homicidal thoughts, denies homicidal plan and denies homicidal intent Hallucinations: no auditory hallucinations and no visual hallucinations Cognition: remote memory grossly intact and language grossly intact mildly distractible, and does not recall the events of the past 10 to 14 days, consistent with when he was delirious Estimated Intelligence: average estimated intelligence Insight: good insight Judgment: good judgement Vital Signs (Past 24 Hours) Last Vital Signs Temp 36.4 C L 06/17/25 07:01 Pulse 98 H 06/17/25 07:01 Resp 20 06/17/25 07:01 BP 102/64 06/17/25 07:01 Pulse Ox 99 06/17/25 07:01 O2 Del Method Room Air 06/17/25 08:37 [facility] Current Inpatient Medications Current Inpatient Medications: Current Inpatient Medications Acetaminophen (Acetaminophen 325 Mg Tab) 650 mg PO QID PRN PRN Reason: pain/fever Stop: 07/12/25 02:57 Last Admin: 06/16/25 08:21 Dose: 650 mg Carbidopa/Levodopa (Carbidopa/Levodopa 50/200mg Ext Rel Tab) 1 tab PO TID@0300,1200,2000 [facility] Stop: 07/07/25 03:29 Last Admin: 06/17/25 12:43 Dose: 1 tab Divalproex Sodium (Divalproex Delay Release 250 Mg Tabec) 250 mg PO BID [facility] Stop: 07/07/25 08:59 Last Admin: 06/17/25 08:27 Dose: 250 mg Divalproex Sodium (Divalproex Delay Release 500 Mg Tab) 1,000 mg PO BID [facility] Stop: 07/07/25 08:59 Last Admin: 06/17/25 08:29 Dose: 1,000 mg Folic Acid (Folic Acid 1 Mg Tab) 1 mg PO QAM [facility] Stop: 07/14/25 08:59 Last Admin: 06/17/25 08:29 Dose: 1 mg Lorazepam 1 mg/ Syringe 1 mls @ 2 mls/min IV Q2H PRN PRN Reason: Breakthrough Seizures Stop: 07/07/25 03:01 Last Admin: 06/12/25 05:00 Dose: 2 mls/min Lorazepam 1 mg/ Syringe 1 mls @ 2 mls/min IV Q8H PRN PRN Reason: Anxiety/Agitation Stop: 07/08/25 18:20 Last Admin: 06/10/25 12:55 Dose: 2 mls/min Levetiracetam (Levetiracetam 500 Mg Tab) 500 mg PO BID [facility] Stop: 07/07/25 08:59 Last Admin: 06/17/25 08:29 Dose: 500 mg Melatonin (Melatonin 3 Mg Tab) 3 mg PO HS PRN PRN Reason: Sleep Stop: 07/12/25 02:59 Last Admin: 06/14/25 20:58 Dose: 3 mg Nitroglycerin (Nitroglycerin Sl 0.4 Mg/Tab Tab) 0.4 mg SL Q5M PRN PRN Reason: Chest Pain Stop: 07/07/25 03:01 Polyethylene Glycol (Polyethylene (Miralax) 17 Gm Pack) 17 gm PO DAILY [facility] Stop: 07/13/25 10:29 Last Admin: 06/17/25 08:52 Dose: 17 gm Quetiapine Fumarate (Quetiapine Fumarate 25 Mg Tablet) 25 mg PO HS [facility] Stop: 07/08/25 20:59 Last Admin: 06/16/25 20:08 Dose: 25 mg Tamsulosin HCl (Tamsulosin Hcl 0.4 Mg Cap) 0.4 mg PO QAM [facility] Stop: 07/14/25 11:14 Last Admin: 06/17/25 08:29 Dose: 0.4 mg Thiamine HCl (Thiamine Hcl 100 Mg Tab) 100 mg PO QAM [facility] Stop: 07/15/25 08:59 Last Admin: 06/17/25 08:29 Dose: 100 mg Trihexyphenidyl HCl (Trihexyphenidyl Hcl 2 Mg Tab) 2 mg PO QAM [facility] Stop: 07/17/25 13:14
--- NOTE | 2025-06-18 10:33 | Hospitalist Progress Note ---
Date of Service June 18, 2025 Assessment & Plan (1) AMS (altered mental status): Plan: In summary, 60-year-old male with past medical history significant for generalized nonconvulsive epilepsy, juvenile seizure disorder, cephalgia, migraine variant, Parkinson disease, history of tobacco abuse, history of mixed action and resting tremor admitted for acute metabolic encephalopathy with superimposed delirium. Per family patient has been declining over course of last year. Patient noted with urinary retention--rodriguez in place. Patient more calm with use of ativan IV prn, possible reaction/akathisia from Zyprexa. Able to eat with assistance 06/08 and take po seroquel, but will keep iv meds as is given unreliable/inconsistent with accepting po intake. #Acute metabolic encephalopathy, multifactorial likely secondary to dehydration/possible uti #Superimposed delirium #Parkinsons disease CT head, face CT, CT cervical spine: Chest x-ray, CT abdomen pelvis no acute findings No evidence of infection, B12 and folate levels are normal UA negative for nitrate and WBC but shows 2+ bacteria,Cultures negative Folate 3.08, sp IV replacement TSH normal at 1.4 Valproic acid level mildly elevated--discussed with neurology, not likely to contribute Keppra level Is normal ammonia 55 MRI without acute process Neurology suspects progression of PD Psychiatry consulted -AVOID ZYPREXA, can cause akathisia -IV ativan for agitation -1-on-1 prn -Started on Seroquel 25mg qhs, plan to titrate up to 25mg BID for behavioral management as needed -EKG ordered daily for now for qtc monitoring -Continue with delirium prevention measures: raising blinds during the day, closing at night, frequent re-orientation, contact with family/friends, explaining procedures/nursing care measures prior to physical contact, correct any hearing and visual impairments -For behavioral emergency: ativan 0.5 or 1 mg IV or IM for agitation. Caution this could worsen delirium. If this occurs consider use of ICU/Precedex given concern of antipsychotic use with his Parkinson's disease. Remains hemodynamically stable, confused and occasional agitation Requiring one-to-one sitter and also mittens to prevent taking out of IV lines and coming out of bed Clinically much better and does not require any more mittens Has been communicating more but he still has unsteadiness involving the extremities Medications have been changed to oral He has improved a lot and has been conversing normally Will get PT OT evaluation and plan for discharge through case management He has been much better and complains to have parkinsonian symptoms He will be started with Sinemet as before and also will get PT OT evaluation Clinically much better and has been communicating normally Pleasantly confused with unsteadiness and trying to come out of bed Will ask psychiatrist to reevaluate and adjust medications if needed Clinically much better and remains alert awake and oriented x 3 Having significant tremors with extrapyramidal componentsdiscussed with the neurologist and is started on trihexyphenidyl Awaiting psych evaluation for any change of his medications Will take off one-to-one sitter and continue PT and OT Remains medically stable with improvement of his tremors and unsteadiness Appreciate psychiatric input and recommendation Awaiting placement Vitamin B1 level is low Could have an cephalopathy -Warnicke and cephalopathy due to low vitamin B1 level Will start high-dose of thiamine intravenously and see if any improvement- IV thiamine 500 mg 3 times daily Seems a little better and will continue high-dose of thiamine for a day or 2 With changes thiamine maintain a dose from tomorrow He will get thiamine at a regular dose #Chronic anemia No evidence of active ongoing bleeding Labs consistent with AoCD Hgb stable #Electrolyte abnormalities replace prn Magnesium supplemented intravenously Will check electrolytes regularly Electrolytes have been normalized #abnormal UA UA cx negative discontinued IV abx, no clear source of infection #epilespy Continue home Keppra and divalproex, IV formulation for now IV Ativan as needed for breakthrough seizures Neurology consultappreciate input and recommendation #Thrombocytopenia new, no clear source infection lyme negative Will follow labs, uptrending, possibly 2/2 infection/dehydration continues to uptrend 72-->113-->142 # Parkinson's Hold carbidopa levodopa, hold trihexyphenidyl Will restart Parkinson's treatment and keep holding trihexyphenidyl Parkinsonian symptoms are improving Trihexyphenidyl has been restarted since yesterday and extremital symptoms are better DVT prophylaxis Heparin subcu Full code for now Will discuss with the POA Admission and Anticipated Discharge Date Admission Date: June 07, 2025 Subjective 06/11/2025 The patient was seen and examined in the medical floor He remains confused with agitation at times, trying to come out of Bed and requiring one-to-one sitter Trying to take out medical lines and has been requiring mittens 06/12/2025 The patient was seen and examined in medical floor He remains stable but still a little unstable in bed and trying to come out of bed and taking out IV lines Otherwise seems to be more conversant today Still requiring one-to-one sitter and mittens 06/13/2025 The patient was seen and examined in medical floor He is much better today and trying to converse normally Still remains unsteady in bed and wants to come out of bed and has been requiring one-to-one sitter 06/14/2025 Patient was seen and examined in medical floor He has been conversing more and almost normally Complains to have hypogastric pain secondary to catheter and wants it out Still remains unsteady in bed and wants to come out and requiring one-to-one sitter 06/15/2025 The patient was seen and examined in medical floor He has been much better and conversing normally Has tremors secondary to Parkinson disease Denies any other significant symptoms and the pain is reasonably controlled with intravenous Tylenol 06/16/2025 The patient was seen and examined in medical floor He has been much better still has unsteadiness Has been communicating normally and tremors are better 06/17/2025 The patient was seen and examined in medical floor He has been much better for the last 2 days Alert, awake and oriented x 3 and conversing normally Only symptoms that she has streamer's likely secondary to Parkinson disease associated with some extrapyramidal symptoms 06/18/2025 The patient was seen and examined in medical floor He has been much better and his parkinsonian symptoms and extrapyramidal symptoms are getting better Awaiting placement Review of Systems Review of Systems: All systems reviewed and are unremarkable except as noted below Physical Exam Physical Exam: Sitting at the edge of the bed with tremors but no other acute distress Constitutional: + ill appearing, average body habitus an d + behavioral limitations Eyes: PERRL, conjunctivae normal, anicteric sclerae ENMT: external ear and nose normal, oropharynx normal Neck: trachea midline, no thyromegaly Respiratory: no respiratory distress Auscultation: lungs clear to auscultation bilaterally Cardiovascular: Rate/Rhythm: regular rate and regular rhythm; not tachycardic Heart Sounds: normal S1 and normal S2; no murmur Extremities: no edema Gastrointestinal (Abdomen): Inspection/Auscultation: normal bowel sounds; abdomen not distended Percussion/Palpation: abdomen soft; abdomen nontender Musculoskeletal: no acute arthritis involving any of the joint Neurologic: normal touch/pain/proprioception and moves all extremities (Has significant tremors with extrapyramidal component); no focal motor deficits Lymphatic: no cervical or axillary lymphadenopathy Results & Data Results & Data Vital Signs (Past 12 Hours) Vital Signs Temp Pulse Resp BP Pulse Ox O2 Del Method 06/18/25 07:55 36.5 C 92 H 18 104/76 95 Room Air 06/17/25 23:22 36.2 C L 101 H 16 92/65 L 96 Room Air Medications Administered Current Inpatient Medications Acetaminophen (Acetaminophen 325 Mg Tab) 650 mg PO QID PRN PRN Reason: pain/fever Stop: 07/12/25 02:57 Last Admin: 06/16/25 08:21 Dose: 650 mg Carbidopa/Levodopa (Carbidopa/Levodopa 50/200mg Ext Rel Tab) 1 tab PO TID@0300,1200,2000 [facility] Stop: 07/07/25 03:29 Last Admin: 06/18/25 03:48 Dose: 1 tab Divalproex Sodium (Divalproex Delay Release 250 Mg Tabec) 250 mg PO BID [facility] Stop: 07/07/25 08:59 Last Admin: 06/18/25 08:58 Dose: 250 mg Divalproex Sodium (Divalproex Delay Release 500 Mg Tab) 1,000 mg PO BID [facility] Stop: 07/07/25 08:59 Last Admin: 06/18/25 08:58 Dose: 1,000 mg Folic Acid (Folic Acid 1 Mg Tab) 1 mg PO QAM [facility] Stop: 07/14/25 08:59 Last Admin: 06/18/25 08:57 Dose: 1 mg Lorazepam 1 mg/ Syringe 1 mls @ 2 mls/min IV Q2H PRN PRN Reason: Breakthrough Seizures Stop: 07/07/25 03:01 Last Admin: 06/12/25 05:00 Dose: 2 mls/min Lorazepam 1 mg/ Syringe 1 mls @ 2 mls/min IV Q8H PRN PRN Reason: Anxiety/Agitation Stop: 07/08/25 18:20 Last Admin: 06/10/25 12:55 Dose: 2 mls/min Levetiracetam (Levetiracetam 500 Mg Tab) 500 mg PO BID [facility] Stop: 07/07/25 08:59 Last Admin: 06/18/25 08:57 Dose: 500 mg Melatonin (Melatonin 3 Mg Tab) 3 mg PO HS PRN PRN Reason: Sleep Stop: 07/12/25 02:59 Last Admin: 06/14/25 20:58 Dose: 3 mg Nitroglycerin (Nitroglycerin Sl 0.4 Mg/Tab Tab) 0.4 mg SL Q5M PRN PRN Reason: Chest Pain Stop: 07/07/25 03:01 Polyethylene Glycol (Polyethylene (Miralax) 17 Gm Pack) 17 gm PO DAILY [facility] Stop: 07/13/25 10:29 Last Admin: 06/18/25 09:01 Dose: Not Given Quetiapine Fumarate (Quetiapine Fumarate 25 Mg Tablet) 25 mg PO HS [facility] Stop: 07/08/25 20:59 Last Admin: 06/17/25 20:30 Dose: 25 mg Tamsulosin HCl (Tamsulosin Hcl 0.4 Mg Cap) 0.4 mg PO QAM [facility] Stop: 07/14/25 11:14 Last Admin: 06/18/25 08:57 Dose: 0.4 mg Thiamine HCl (Thiamine Hcl 100 Mg Tab) 100 mg PO QAM [facility] Stop: 07/15/25 08:59 Last Admin: 06/18/25 08:57 Dose: 100 mg Trihexyphenidyl HCl (Trihexyphenidyl Hcl 2 Mg Tab) 2 mg PO QAM [facility] Stop: 07/17/25 13:14 Last Admin: 06/18/25 08:58 Dose: 2 mg
--- NOTE | 2025-06-19 12:39 | Hospitalist Progress Note ---
Date of Service June 19, 2025 Assessment & Plan (1) AMS (altered mental status): Plan: In summary, 60-year-old male with past medical history significant for generalized nonconvulsive epilepsy, juvenile seizure disorder, cephalgia, migraine variant, Parkinson disease, history of tobacco abuse, history of mixed action and resting tremor admitted for acute metabolic encephalopathy with superimposed delirium. Per family patient has been declining over course of last year. Patient noted with urinary retention--rodriguez in place. Patient more calm with use of ativan IV prn, possible reaction/akathisia from Zyprexa. Able to eat with assistance 06/08 and take po seroquel, but will keep iv meds as is given unreliable/inconsistent with accepting po intake. #Acute metabolic encephalopathy, multifactorial likely secondary to dehydration/possible uti #Superimposed delirium #Parkinsons disease CT head, face CT, CT cervical spine: Chest x-ray, CT abdomen pelvis no acute findings No evidence of infection, B12 and folate levels are normal UA negative for nitrate and WBC but shows 2+ bacteria,Cultures negative Folate 3.08, sp IV replacement TSH normal at 1.4 Valproic acid level mildly elevated--discussed with neurology, not likely to contribute Keppra level Is normal ammonia 55 MRI without acute process Neurology suspects progression of PD Psychiatry consulted -AVOID ZYPREXA, can cause akathisia -IV ativan for agitation -1-on-1 prn -Started on Seroquel 25mg qhs, plan to titrate up to 25mg BID for behavioral management as needed -EKG ordered daily for now for qtc monitoring -Continue with delirium prevention measures: raising blinds during the day, closing at night, frequent re-orientation, contact with family/friends, explaining procedures/nursing care measures prior to physical contact, correct any hearing and visual impairments -For behavioral emergency: ativan 0.5 or 1 mg IV or IM for agitation. Caution this could worsen delirium. If this occurs consider use of ICU/Precedex given concern of antipsychotic use with his Parkinson's disease. Remains hemodynamically stable, confused and occasional agitation Requiring one-to-one sitter and also mittens to prevent taking out of IV lines and coming out of bed Clinically much better and does not require any more mittens Has been communicating more but he still has unsteadiness involving the extremities Medications have been changed to oral He has improved a lot and has been conversing normally Will get PT OT evaluation and plan for discharge through case management He has been much better and complains to have parkinsonian symptoms He will be started with Sinemet as before and also will get PT OT evaluation Clinically much better and has been communicating normally Pleasantly confused with unsteadiness and trying to come out of bed Will ask psychiatrist to reevaluate and adjust medications if needed Clinically much better and remains alert awake and oriented x 3 Having significant tremors with extrapyramidal componentsdiscussed with the neurologist and is started on trihexyphenidyl Awaiting psych evaluation for any change of his medications Will take off one-to-one sitter and continue PT and OT Remains medically stable with improvement of his tremors and unsteadiness Appreciate psychiatric input and recommendation Awaiting placement-no other issues Vitamin B1 level is low Could have an cephalopathy -Warnicke and cephalopathy due to low vitamin B1 level Will start high-dose of thiamine intravenously and see if any improvement- IV thiamine 500 mg 3 times daily Seems a little better and will continue high-dose of thiamine for a day or 2 With changes thiamine maintain a dose from tomorrow He will get thiamine at a regular dose #Chronic anemia No evidence of active ongoing bleeding Labs consistent with AoCD Hgb stable #Electrolyte abnormalities replace prn Magnesium supplemented intravenously Will check electrolytes regularly Electrolytes have been normalized #abnormal UA UA cx negative discontinued IV abx, no clear source of infection #epilespy Continue home Keppra and divalproex, IV formulation for now IV Ativan as needed for breakthrough seizures Neurology consultappreciate input and recommendation #Thrombocytopenia new, no clear source infection lyme negative Will follow labs, uptrending, possibly 2/2 infection/dehydration continues to uptrend 72-->113-->142 # Parkinson's Hold carbidopa levodopa, hold trihexyphenidyl Will restart Parkinson's treatment and keep holding trihexyphenidyl Parkinsonian symptoms are improving Trihexyphenidyl has been restarted since yesterday and extremital symptoms are better Extraparametal symptoms are better with trihexyphenidyl DVT prophylaxis Heparin subcu Full code for now Will discuss with the POA Admission and Anticipated Discharge Date Admission Date: June 07, 2025 Subjective 06/11/2025 The patient was seen and examined in the medical floor He remains confused with agitation at times, trying to come out of Bed and requiring one-to-one sitter Trying to take out medical lines and has been requiring mittens 06/12/2025 The patient was seen and examined in medical floor He remains stable but still a little unstable in bed and trying to come out of bed and taking out IV lines Otherwise seems to be more conversant today Still requiring one-to-one sitter and mittens 06/13/2025 The patient was seen and examined in medical floor He is much better today and trying to converse normally Still remains unsteady in bed and wants to come out of bed and has been requiring one-to-one sitter 06/14/2025 Patient was seen and examined in medical floor He has been conversing more and almost normally Complains to have hypogastric pain secondary to catheter and wants it out Still remains unsteady in bed and wants to come out and requiring one-to-one sitter 06/15/2025 The patient was seen and examined in medical floor He has been much better and conversing normally Has tremors secondary to Parkinson disease Denies any other significant symptoms and the pain is reasonably controlled with intravenous Tylenol 06/16/2025 The patient was seen and examined in medical floor He has been much better still has unsteadiness Has been communicating normally and tremors are better 06/17/2025 The patient was seen and examined in medical floor He has been much better for the last 2 days Alert, awake and oriented x 3 and conversing normally Only symptoms that she has streamer's likely secondary to Parkinson disease associated with some extrapyramidal symptoms 06/18/2025 The patient was seen and examined in medical floor He has been much better and his parkinsonian symptoms and extrapyramidal symptoms are getting better Awaiting placement 06/19/2025 The patient was seen and examined in the medical floor He has been much better and ambulating in the room without any difficulties Remains a little unsteady on feet and awaiting placement placement Review of Systems Review of Systems: All systems reviewed and are unremarkable except as noted below Physical Exam Physical Exam: Sitting at the edge of the bed with tremors but no other acute distress Constitutional: + ill appearing, average body habitus an d + behavioral limitations Eyes: PERRL, conjunctivae normal, anicteric sclerae ENMT: external ear and nose normal, oropharynx normal Neck: trachea midline, no thyromegaly Respiratory: no respiratory distress Auscultation: lungs clear to auscultation bilaterally Cardiovascular: Rate/Rhythm: regular rate and regular rhythm; not tachycardic Heart Sounds: normal S1 and normal S2; no murmur Extremities: no edema Gastrointestinal (Abdomen): Inspection/Auscultation: normal bowel sounds; abdomen not distended Percussion/Palpation: abdomen soft; abdomen nontender Neurologic: normal touch/pain/proprioception and moves all extremities (Has significant tremors with extrapyramidal component); no focal motor deficits Lymphatic: no cervical or axillary lymphadenopathy Results & Data Results & Data Vital Signs (Past 12 Hours) Vital Signs Temp Pulse Resp BP Pulse Ox O2 Del Method 06/19/25 08:00 Room Air 06/19/25 07:48 36.2 C L 82 16 115/83 99 Room Air Medications Administered Current Inpatient Medications Acetaminophen (Acetaminophen 325 Mg Tab) 650 mg PO QID PRN PRN Reason: pain/fever Stop: 07/12/25 02:57 Last Admin: 06/16/25 08:21 Dose: 650 mg Carbidopa/Levodopa (Carbidopa/Levodopa 50/200mg Ext Rel Tab) 1 tab PO TID@0300,1200,2000 [facility] Stop: 07/07/25 03:29 Last Admin: 06/19/25 02:53 Dose: 1 tab Divalproex Sodium (Divalproex Delay Release 250 Mg Tabec) 250 mg PO BID [facility] Stop: 07/07/25 08:59 Last Admin: 06/19/25 09:48 Dose: 250 mg Divalproex Sodium (Divalproex Delay Release 500 Mg Tab) 1,000 mg PO BID [facility] Stop: 07/07/25 08:59 Last Admin: 06/19/25 09:47 Dose: 1,000 mg Folic Acid (Folic Acid 1 Mg Tab) 1 mg PO QAM [facility] Stop: 07/14/25 08:59 Last Admin: 06/19/25 09:47 Dose: 1 mg Lorazepam 1 mg/ Syringe 1 mls @ 2 mls/min IV Q2H PRN PRN Reason: Breakthrough Seizures Stop: 07/07/25 03:01 Last Admin: 06/12/25 05:00 Dose: 2 mls/min Lorazepam 1 mg/ Syringe 1 mls @ 2 mls/min IV Q8H PRN PRN Reason: Anxiety/Agitation Stop: 07/08/25 18:20 Last Admin: 06/10/25 12:55 Dose: 2 mls/min Levetiracetam (Levetiracetam 500 Mg Tab) 500 mg PO BID [facility] Stop: 07/07/25 08:59 Last Admin: 06/19/25 09:47 Dose: 500 mg Melatonin (Melatonin 3 Mg Tab) 3 mg PO HS PRN PRN Reason: Sleep Stop: 07/12/25 02:59 Last Admin: 06/14/25 20:58 Dose: 3 mg Nitroglycerin (Nitroglycerin Sl 0.4 Mg/Tab Tab) 0.4 mg SL Q5M PRN PRN Reason: Chest Pain Stop: 07/07/25 03:01 Polyethylene Glycol (Polyethylene (Miralax) 17 Gm Pack) 17 gm PO DAILY [facility] Stop: 07/13/25 10:29 Last Admin: 06/19/25 09:48 Dose: Not Given Quetiapine Fumarate (Quetiapine Fumarate 25 Mg Tablet) 25 mg PO HS [facility] Stop: 07/08/25 20:59 Last Admin: 06/18/25 20:39 Dose: 25 mg Tamsulosin HCl (Tamsulosin Hcl 0.4 Mg Cap) 0.4 mg PO QAM [facility] Stop: 07/14/25 11:14 Last Admin: 06/19/25 09:47 Dose: 0.4 mg Thiamine HCl (Thiamine Hcl 100 Mg Tab) 100 mg PO QAM [facility] Stop: 07/15/25 08:59 Last Admin: 06/19/25 09:47 Dose: 100 mg Trihexyphenidyl HCl (Trihexyphenidyl Hcl 2 Mg Tab) 2 mg PO QAM [facility] Stop: 07/17/25 13:14 Last Admin: 06/19/25 09:48 Dose: 2 mg
--- NOTE | 2025-06-20 13:09 | Hospitalist Progress Note ---
Date of Service June 20, 2025 Assessment & Plan (1) AMS (altered mental status): Plan: In summary, 60-year-old male with past medical history significant for generalized nonconvulsive epilepsy, juvenile seizure disorder, cephalgia, migraine variant, Parkinson disease, history of tobacco abuse, history of mixed action and resting tremor admitted for acute metabolic encephalopathy with superimposed delirium. Per family patient has been declining over course of last year. Patient noted with urinary retention--rodriguez in place. Patient more calm with use of ativan IV prn, possible reaction/akathisia from Zyprexa. Able to eat with assistance 06/08 and take po seroquel, but will keep iv meds as is given unreliable/inconsistent with accepting po intake. #Acute metabolic encephalopathy, multifactorial likely secondary to dehydration/possible uti #Superimposed delirium #Parkinsons disease CT head, face CT, CT cervical spine: Chest x-ray, CT abdomen pelvis no acute findings No evidence of infection, B12 and folate levels are normal UA negative for nitrate and WBC but shows 2+ bacteria,Cultures negative Folate 3.08, sp IV replacement TSH normal at 1.4 Valproic acid level mildly elevated--discussed with neurology, not likely to contribute Keppra level Is normal ammonia 55 MRI without acute process Neurology suspects progression of PD Psychiatry consulted -AVOID ZYPREXA, can cause akathisia -IV ativan for agitation -1-on-1 prn -Started on Seroquel 25mg qhs, plan to titrate up to 25mg BID for behavioral management as needed -EKG ordered daily for now for qtc monitoring -Continue with delirium prevention measures: raising blinds during the day, closing at night, frequent re-orientation, contact with family/friends, explaining procedures/nursing care measures prior to physical contact, correct a ny hearing and visual impairments -For behavioral emergency: ativan 0.5 or 1 mg IV or IM for agitation. Caution this could worsen delirium. If this occurs consider use of ICU/Precedex given concern of antipsychotic use with his Parkinson's disease. Remains hemodynamically stable, confused and occasional agitation Requiring one-to-one sitter and also mittens to prevent taking out of IV lines and coming out of bed Clinically much better and does not require any more mittens Has been communicating more but he still has unsteadiness involving the extremities Medications have been changed to oral He has improved a lot and has been conversing normally Will get PT OT evaluation and plan for discharge through case management He has been much better and complains to have parkinsonian symptoms He will be started with Sinemet as before and also will get PT OT evaluation Clinically much better and has been communicating normally Pleasantly confused with unsteadiness and trying to come out of bed Will ask psychiatrist to reevaluate and adjust medications if needed Clinically much better and remains alert awake and oriented x 3 Having significant tremors with extrapyramidal componentsdiscussed with the neurologist and is started on trihexyphenidyl Awaiting psych evaluation for any change of his medications Will take off one-to-one sitter and continue PT and OT Remains medically stable with improvement of his tremors and unsteadiness Appreciate psychiatric input and recommendation no acute issues and awaiting placement Vitamin B1 level is low Could have an cephalopathy -Warnicke and cephalopathy due to low vitamin B1 level Will start high-dose of thiamine intravenously and see if any improvement- IV thiamine 500 mg 3 times daily Seems a little better and will continue high-dose of thiamine for a day or 2 With changes thiamine maintain a dose from tomorrow He will get thiamine at a regular dose #Chronic anemia No evidence of active ongoing bleeding Labs consistent with AoCD Hgb stable #Electrolyte abnormalities replace prn Magnesium supplemented intravenously Will check electrolytes regularly Electrolytes have been normalized #abnormal UA UA cx negative discontinued IV abx, no clear source of infection #epilespy Continue home Keppra and divalproex, IV formulation for now IV Ativan as needed for breakthrough seizures Neurology consultappreciate input and recommendation #Thrombocytopenia new, no clear source infection lyme negative Will follow labs, uptrending, possibly 2/2 infection/dehydration continues to uptrend 72-->113-->142 # Parkinson's Hold carbidopa levodopa, hold trihexyphenidyl Will restart Parkinson's treatment and keep holding trihexyphenidyl Parkinsonian symptoms are improving Trihexyphenidyl has been restarted since yesterday and extremital symptoms are better Extraparametal symptoms are better with trihexyphenidyl Parkinsonian symptoms are improved DVT prophylaxis Heparin subcu Full code for now Admission and Anticipated Discharge Date Admission Date: June 07, 2025 Subjective 06/11/2025 The patient was seen and examined in the medical floor He remains confused with agitation at times, trying to come out of Bed and requiring one-to-one sitter Trying to take out medical lines and has been requiring mittens 06/12/2025 The patient was seen and examined in medical floor He remains stable but still a little unstable in bed and trying to come out of bed and taking out IV lines Otherwise seems to be more conversant today Still requiring one-to-one sitter and mittens 06/13/2025 The patient was seen and examined in medical floor He is much better today and trying to converse normally Still remains unsteady in bed and wants to come out of bed and has been requiring one-to-one sitter 06/14/2025 Patient was seen and examined in medical floor He has been conversing more and almost normally Complains to have hypogastric pain secondary to catheter and wants it out Still remains unsteady in bed and wants to come out and requiring one-to-one sitter 06/15/2025 The patient was seen and examined in medical floor He has been much better and conversing normally Has tremors secondary to Parkinson disease Denies any other significant symptoms and the pain is reasonably controlled with intravenous Tylenol 06/16/2025 The patient was seen and examined in medical floor He has been much better still has unsteadiness Has been communicating normally and tremors are better 06/17/2025 The patient was seen and examined in medical floor He has been much better for the last 2 days Alert, awake and oriented x 3 and conversing normally Only symptoms that she has streamer's likely secondary to Parkinson disease ass ociated with some extrapyramidal symptoms 06/18/2025 The patient was seen and examined in medical floor He has been much better and his parkinsonian symptoms and extrapyramidal symptoms are getting better Awaiting placement 06/19/2025 The patient was seen and examined in the medical floor He has been much better and ambulating in the room without any difficulties Remains a little unsteady on feet and awaiting placement placement 06/20/2025 The patient was seen and examined in the medical floor He has been stable and awaiting placement Review of Systems Review of Systems: All systems reviewed and are unremarkable except as noted below Physical Exam Physical Exam: Sitting at the edge of the bed with tremors but no other acute distress Constitutional: + ill appearing, average body habitus an d + behavioral limitations Eyes: PERRL, conjunctivae normal, anicteric sclerae ENMT: external ear and nose normal, oropharynx normal Neck: trachea midline, no thyromegaly Respiratory: no respiratory distress Auscultation: lungs clear to auscultation bilaterally Cardiovascular: Rate/Rhythm: regular rate and regular rhythm; not tachycardic Heart Sounds: normal S1 and normal S2; no murmur Extremities: no edema Gastrointestinal (Abdomen): Inspection/Auscultation: normal bowel sounds; abdomen not distended Percussion/Palpation: abdomen soft; abdomen nontender Neurologic: normal touch/pain/proprioception and moves all extremities (Has significant tremors with extrapyramidal component); no focal motor deficits Lymphatic: no cervical or axillary lymphadenopathy Results & Data Results & Data Vital Signs (Past 12 Hours) Vital Signs Temp Pulse Resp BP BP Pulse Ox O2 Del Method 06/20/25 08:00 36.3 C L 76 16 87/47 L 91/65 L 93 Room Air Medications Administered Current Inpatient Medications Acetaminophen (Acetaminophen 325 Mg Tab) 650 mg PO QID PRN PRN Reason: pain/fever Stop: 07/12/25 02:57 Last Admin: 06/16/25 08:21 Dose: 650 mg Carbidopa/Levodopa (Carbidopa/Levodopa 50/200mg Ext Rel Tab) 1 tab PO TID@0300,1200,2000 [facility] Stop: 07/07/25 03:29 Last Admin: 06/20/25 02:40 Dose: 1 tab Divalproex Sodium (Divalproex Delay Release 250 Mg Tabec) 250 mg PO BID [facility] Stop: 07/07/25 08:59 Last Admin: 06/20/25 10:32 Dose: 250 mg Divalproex Sodium (Divalproex Delay Release 500 Mg Tab) 1,000 mg PO BID [facility] Stop: 07/07/25 08:59 Last Admin: 06/20/25 10:32 Dose: 1,000 mg Folic Acid (Folic Acid 1 Mg Tab) 1 mg PO QAM [facility] Stop: 07/14/25 08:59 Last Admin: 06/20/25 10:32 Dose: 1 mg Lorazepam 1 mg/ Syringe 1 mls @ 2 mls/min IV Q2H PRN PRN Reason: Breakthrough Seizures Stop: 07/07/25 03:01 Last Admin: 06/12/25 05:00 Dose: 2 mls/min Lorazepam 1 mg/ Syringe 1 mls @ 2 mls/min IV Q8H PRN PRN Reason: Anxiety/Agitation Stop: 07/08/25 18:20 Last Admin: 06/10/25 12:55 Dose: 2 mls/min Levetiracetam (Levetiracetam 500 Mg Tab) 500 mg PO BID [facility] Stop: 07/07/25 08:59 Last Admin: 06/20/25 10:32 Dose: 500 mg Melatonin (Melatonin 3 Mg Tab) 3 mg PO HS PRN PRN Reason: Sleep Stop: 07/12/25 02:59 Last Admin: 06/14/25 20:58 Dose: 3 mg Nitroglycerin (Nitroglycerin Sl 0.4 Mg/Tab Tab) 0.4 mg SL Q5M PRN PRN Reason: Chest Pain Stop: 07/07/25 03:01 Polyethylene Glycol (Polyethylene (Miralax) 17 Gm Pack) 17 gm PO DAILY [facility] Stop: 07/13/25 10:29 Last Admin: 06/20/25 10:29 Dose: Not Given Quetiapine Fumarate (Quetiapine Fumarate 25 Mg Tablet) 25 mg PO HS [facility] Stop: 07/08/25 20:59 Last Admin: 06/19/25 20:04 Dose: 25 mg Tamsulosin HCl (Tamsulosin Hcl 0.4 Mg Cap) 0.4 mg PO QAM [facility] Stop: 07/14/25 11:14 Last Admin: 06/20/25 10:32 Dose: 0.4 mg Thiamine HCl (Thiamine Hcl 100 Mg Tab) 100 mg PO QAM [facility] Stop: 07/15/25 08:59 Last Admin: 06/20/25 10:31 Dose: 100 mg Trihexyphenidyl HCl (Trihexyphenidyl Hcl 2 Mg Tab) 2 mg PO QAM [facility] Stop: 07/17/25 13:14 Last Admin: 06/20/25 10:31 Dose: 2 mg
--- NOTE | 2025-06-21 14:58 | Hospitalist Progress Note ---
Date of Service June 21, 2025 Assessment & Plan (1) AMS (altered mental status): Plan: In summary, 60-year-old male with past medical history significant for generalized nonconvulsive epilepsy, juvenile seizure disorder, cephalgia, migraine variant, Parkinson disease, history of tobacco abuse, history of mixed action and resting tremor admitted for acute metabolic encephalopathy with superimposed delirium. Per family patient has been declining over course of last year. Patient noted with urinary retention--rodriguez in place. Patient more calm with use of ativan IV prn, possible reaction/akathisia from Zyprexa. Able to eat with assistance 06/08 and take po seroquel, but will keep iv meds as is given unreliable/inconsistent with accepting po intake. #Acute metabolic encephalopathy, multifactorial likely secondary to dehydration/possible uti #Superimposed delirium #Parkinsons disease CT head, face CT, CT cervical spine: Chest x-ray, CT abdomen pelvis no acute findings No evidence of infection, B12 and folate levels are normal UA negative for nitrate and WBC but shows 2+ bacteria,Cultures negative Folate 3.08, sp IV replacement TSH normal at 1.4 Valproic acid level mildly elevated--discussed with neurology, not likely to contribute Keppra level Is normal ammonia 55 MRI without acute process Neurology suspects progression of PD Psychiatry consulted -AVOID ZYPREXA, can cause akathisia -IV ativan for agitation -1-on-1 prn -Started on Seroquel 25mg qhs, plan to titrate up to 25mg BID for behavioral management as needed -EKG ordered daily for now for qtc monitoring -Continue with delirium prevention measures: raising blinds during the day, closing at night, frequent re-orientation, contact with family/friends, explaining procedures/nursing care measures prior to physical contact, correct a ny hearing and visual impairments -For behavioral emergency: ativan 0.5 or 1 mg IV or IM for agitation. Caution this could worsen delirium. If this occurs consider use of ICU/Precedex given concern of antipsychotic use with his Parkinson's disease. Remains hemodynamically stable, confused and occasional agitation Requiring one-to-one sitter and also mittens to prevent taking out of IV lines and coming out of bed Clinically much better and does not require any more mittens Has been communicating more but he still has unsteadiness involving the extremities Medications have been changed to oral He has improved a lot and has been conversing normally Will get PT OT evaluation and plan for discharge through case management He has been much better and complains to have parkinsonian symptoms He will be started with Sinemet as before and also will get PT OT evaluation Clinically much better and has been communicating normally Pleasantly confused with unsteadiness and trying to come out of bed Will ask psychiatrist to reevaluate and adjust medications if needed Clinically much better and remains alert awake and oriented x 3 Having significant tremors with extrapyramidal componentsdiscussed with the neurologist and is started on trihexyphenidyl Awaiting psych evaluation for any change of his medications Will take off one-to-one sitter and continue PT and OT Remains medically stable with improvement of his tremors and unsteadiness Appreciate psychiatric input and recommendation Remains medically stable to be discharged Vitamin B1 level is low Could have an cephalopathy -Warnicke and cephalopathy due to low vitamin B1 level Will start high-dose of thiamine intravenously and see if any improvement- IV thiamine 500 mg 3 times daily Seems a little better and will continue high-dose of thiamine for a day or 2 With changes thiamine maintain a dose from tomorrow He will get thiamine at a regular dose #Chronic anemia No evidence of active ongoing bleeding Labs consistent with AoCD Hgb stable-Will check CBC #Electrolyte abnormalities replace prn Magnesium supplemented intravenously Will check electrolytes regularly Electrolytes have been normalized Recheck PRP tomorrow #abnormal UA UA cx negative discontinued IV abx, no clear source of infection #epilespy Continue home Keppra and divalproex, IV formulation for now IV Ativan as needed for breakthrough seizures Neurology consultappreciate input and recommendation #Thrombocytopenia new, no clear source infection lyme negative Will follow labs, uptrending, possibly 2/2 infection/dehydration continues to uptrend 72-->113-->142 # Parkinson's Hold carbidopa levodopa, hold trihexyphenidyl Will restart Parkinson's treatment and keep holding trihexyphenidyl Parkinsonian symptoms are improving Trihexyphenidyl has been restarted since yesterday and extremital symptoms are better Extraparametal symptoms are better with trihexyphenidyl Parkinsonian symptoms are controlled DVT prophylaxis Heparin subcu Full code for now Admission and Anticipated Discharge Date Admission Date: June 07, 2025 Subjective 06/11/2025 The patient was seen and examined in the medical floor He remains confused with agitation at times, trying to come out of Bed and requiring one-to-one sitter Trying to take out medical lines and has been requiring mittens 06/12/2025 The patient was seen and examined in medical floor He remains stable but still a little unstable in bed and trying to come out of bed and taking out IV lines Otherwise seems to be more conversant today Still requiring one-to-one sitter and mittens 06/13/2025 The patient was seen and examined in medical floor He is much better today and trying to converse normally Still remains unsteady in bed and wants to come out of bed and has been requiring one-to-one sitter 06/14/2025 Patient was seen and examined in medical floor He has been conversing more and almost normally Complains to have hypogastric pain secondary to catheter and wants it out Still remains unsteady in bed and wants to come out and requiring one-to-one sitter 06/15/2025 The patient was seen and examined in medical floor He has been much better and conversing normally Has tremors secondary to Parkinson disease Denies any other significant symptoms and the pain is reasonably controlled with intravenous Tylenol 06/16/2025 The patient was seen and examined in medical floor He has been much better still has unsteadiness Has been communicating normally and tremors are better 06/17/2025 The patient was seen and examined in medical floor He has been much better for the last 2 days Alert, awake and oriented x 3 and conversing normally Only symptoms that she has streamer's likely secondary to Parkinson disease associated with some extrapyramidal symptoms 06/18/2025 The patient was seen and examined in medical floor He has been much better and his parkinsonian symptoms and extrapyramidal symptoms are getting better Awaiting placement 06/19/2025 The patient was seen and examined in the medical floor He has been much better and ambulating in the room without any difficulties Remains a little unsteady on feet and awaiting placement placement 06/20/2025 The patient was seen and examined in the medical floor He has been stable and awaiting placement 06/21/2025 The patient was seen and examined in medical floor He has been stable and awaiting placement Denies any significant symptoms okay Review of Systems Review of Systems: All systems reviewed and are unremarkable except as noted below Physical Exam Physical Exam: Sitting at the edge of the bed with tremors but no other acute distress Constitutional: + ill appearing, average body habitus an d + behavioral limitations Eyes: PERRL, conjunctivae normal, anicteric sclerae ENMT: external ear and nose normal, oropharynx normal Neck: trachea midline, no thyromegaly Respiratory: no respiratory distress Auscultation: lungs clear to auscultation bilaterally Cardiovascular: Rate/Rhythm: regular rate and regular rhythm; not tachycardic Heart Sounds: normal S1 and normal S2; no murmur Extremities: no edema Gastrointestinal (Abdomen): Inspection/Auscultation: normal bowel sounds; abdomen not distended Percussion/Palpation: abdomen soft; abdomen nontender Neurologic: normal touch/pain/proprioception and moves all extremities (Has significant tremors with extrapyramidal component); no focal motor deficits Lymphatic: no cervical or axillary lymphadenopathy Results & Data Results & Data Vital Signs (Past 12 Hours) Vital Signs Temp Pulse Resp BP Pulse Ox O2 Del Method 06/21/25 07:08 36.4 C L 67 16 98/66 L 96 Room Air Medications Administered Current Inpatient Medications Acetaminophen (Acetaminophen 325 Mg Tab) 650 mg PO QID PRN PRN Reason: pain/fever Stop: 07/12/25 02:57 Last Admin: 06/16/25 08:21 Dose: 650 mg Carbidopa/Levodopa (Carbidopa/Levodopa 50/200mg Ext Rel Tab) 1 tab PO TID@0300,1200,2000 [facility] Stop: 07/07/25 03:29 Last Admin: 06/21/25 12:07 Dose: 1 tab Divalproex Sodium (Divalproex Delay Release 250 Mg Tabec) 250 mg PO BID [facility] Stop: 07/07/25 08:59 Last Admin: 06/21/25 08:37 Dose: 250 mg Divalproex Sodium (Divalproex Delay Release 500 Mg Tab) 1,000 mg PO BID [facility] Stop: 07/07/25 08:59 Last Admin: 06/21/25 08:36 Dose: 1,000 mg Folic Acid (Folic Acid 1 Mg Tab) 1 mg PO QAM [facility] Stop: 07/14/25 08:59 Last Admin: 06/21/25 08:37 Dose: 1 mg Lorazepam 1 mg/ Syringe 1 mls @ 2 mls/min IV Q2H PRN PRN Reason: Breakthrough Seizures Stop: 07/07/25 03:01 Last Admin: 06/12/25 05:00 Dose: 2 mls/min Lorazepam 1 mg/ Syringe 1 mls @ 2 mls/min IV Q8H PRN PRN Reason: Anxiety/Agitation Stop: 07/08/25 18:20 Last Admin: 06/10/25 12:55 Dose: 2 mls/min Levetiracetam (Levetiracetam 500 Mg Tab) 500 mg PO BID [facility] Stop: 07/07/25 08:59 Last Admin: 06/21/25 08:37 Dose: 500 mg Melatonin (Melatonin 3 Mg Tab) 3 mg PO HS PRN PRN Reason: Sleep Stop: 07/12/25 02:59 Last Admin: 06/14/25 20:58 Dose: 3 mg Nitroglycerin (Nitroglycerin Sl 0.4 Mg/Tab Tab) 0.4 mg SL Q5M PRN PRN Reason: Chest Pain Stop: 07/07/25 03:01 Polyethylene Glycol (Polyethylene (Miralax) 17 Gm Pack) 17 gm PO DAILY [facility] Stop: 07/13/25 10:29 Last Admin: 06/21/25 09:12 Dose: Not Given Quetiapine Fumarate (Quetiapine Fumarate 25 Mg Tablet) 25 mg PO HS [facility] Stop: 07/08/25 20:59 Last Admin: 06/20/25 20:33 Dose: 25 mg Tamsulosin HCl (Tamsulosin Hcl 0.4 Mg Cap) 0.4 mg PO QAM [facility] Stop: 07/14/25 11:14 Last Admin: 06/21/25 08:37 Dose: 0.4 mg Thiamine HCl (Thiamine Hcl 100 Mg Tab) 100 mg PO QAM [facility] Stop: 07/15/25 08:59 Last Admin: 06/21/25 08:37 Dose: 100 mg Trihexyphenidyl HCl (Trihexyphenidyl Hcl 2 Mg Tab) 2 mg PO QAM [facility] Stop: 07/17/25 13:14 Last Admin: 06/21/25 08:36 Dose: 2 mg
[2025-06-22 06:29] LABS: Hematocrit (blood only) 25.8 % (42.0-52.0); Hemoglobin 8.8 g/dL (14.0-18.0); Immature Granulocytes # (auto) 0.01 K/uL (0.01-0.20); Immature Granulocytes % (auto) 0.3 %; Mean Corpuscular Hemoglobin 30.1 pg (25.0-34.0); Mean Corpuscular Volume 88.4 fL (80.0-100.0); Platelet Count 173 K/uL (130-400); RDW Standard Deviation 49.5 fL (36.4-46.3); Red Blood Count 2.92 M/uL (4.70-6.10); White Blood Count 3.93 K/ul (4.8-10.8)
[2025-06-22 07:07] LABS: Anion Gap 5.0 (3-11); Blood Urea Nitrogen 24.0 mg/dl (6-23); Calcium 8.9 mg/dl (8.6-10.3); Carbon Dioxide 29.0 mmol/L (21-32); Chloride 103.0 mmol/L (98-107); Creatinine Clr Calc Pharmacy 110.1 ml/min; Glucose 81.0 mg/dl (70-99(Fasting)); Potassium 4.3 mmol/L (3.5-5.1); Sodium 137.0 mmol/L (136-145)
--- NOTE | 2025-06-22 15:26 | Hospitalist Progress Note ---
Date of Service June 22, 2025 Assessment & Plan (1) AMS (altered mental status): Plan: Patient is a 60-year-old male with past medical history significant for generalized nonconvulsive epilepsy, juvenile seizure disorder, cephalgia, migraine variant, Parkinson disease, history of tobacco abuse, history of mixed action and resting tremor admitted for acute metabolic encephalopathy with superimposed delirium. Per family patient has been declining over course of last year. Patient noted with urinary retention--rodriguez in place. Patient more calm with use of ativan IV prn, possible reaction/akathisia from Zyprexa. Able to eat with assistance 06/08 and take po seroquel, but will keep iv meds as is given unreliable/inconsistent with accepting po intake. Acute metabolic encephalopathy, multifactorial likely secondary to dehydration/Meds Superimposed delirium Parkinson's disease CT head, face CT, CT cervical spine: Chest x-ray, CT abdomen pelvis no acute findings Urine Cx: Negative Ammonia normal Thiamine low: <6 Folate 2.08 >>22.30 S/P replacement TSH normal Valproic acid level mildly elevated--discussed with neurology, not likely to contribute Keppra level Is normal MRI without acute process Neurology suspects progression of PD Psychiatry consulted -AVOID ZYPREXA, can cause akathisia -IV Ativan for agitation -1-on-1 prn -Started on Seroquel 25mg qhs, plan to titrate up to 25mg BID for behavioral management as needed -EKG ordered daily for now for qtc monitoring -Continue with delirium prevention measures: raising blinds during the day, closing at night, frequent re-orientation, contact with family/friends, explai soren procedures/nursing care measures prior to physical contact, correct any hearing and visual impairments -For behavioral emergency: ativan 0.5 or 1 mg IV or IM for agitation. Caution this could worsen delirium. If this occurs consider use of ICU/Precedex given concern of antipsychotic use with his Parkinson's disease. --Also started on Sinemet, Artane Mental status seems to be back to baseline Continue PT OT while hospitalized Appreciate psychiatry, neurology input Needs follow-up with psychiatry, neurology on discharge Vitamin B1 level is low Suspected metabolic/-Wernicke Encephalopathy due to low vitamin B1 level Received IV thiamine Continue p.o. thiamine Hypomagnesemia Replace and monitor Chronic anemia No evidence of active ongoing bleeding Labs consistent with AoCD Hgb stable-Will check CBC Epilepsy Continue home Keppra and divalproex IV Ativan as needed for breakthrough seizures Neurology consultappreciate input and recommendation Thrombocytopenia lyme negative Thrombocytopenia resolved Monitor Parkinson's Continue carbidopa levodopa, trihexyphenidyl Extrapyramidal symptoms are better with trihexyphenidyl DVT Px: SCDs Code Status Full code Disposition Case management to help with discharge planning Admission and Anticipated Discharge Date Admission Date: June 07, 2025 Subjective Patient is seen and examined at bedside Reports chronic headache which he attributes to migraine Offers no other complaints today Denies any chest pain, dyspnea, nausea, vomiting, abdominal pain, dizziness Review of Systems Review of Systems: All systems reviewed & are unremarkable except as noted in Subjective Physical Exam Physical Exam: Physical Exam: Vitals signs as noted above General Appearance: Thin, frail, chronic ill appearing, no apparent distress Head: normocephalic, Atraumatic Eyes: normal inspection, EOMI Neck: supple, Trachea midline Respiratory/Chest: Normal breath sounds, CTA, No accessory muscle use Cardiovascular: S1, S2, No murmur Abdomen/GI:Soft, Non tender, Bowel sounds present Extremities/Musculoskeletal:normal inspection, no edema Neurologic/Psych:AAOX3, grossly no focal neurological deficits, Intermittent tremor Skin: normal color, warm Results & Data Results & Data Vital Signs (Past 12 Hours) Vital Signs Temp Pulse Resp BP Pulse Ox O2 Del Method 06/22/25 07:13 36.9 C 63 16 96/58 L 96 Room Air Laboratory Results Short CBC 06/22/25 Range/Units 05:51 WBC 3.93 L (4.8-10.8) K/ul Hgb 8.8 L (14.0-18.0) g/dL Hct 25.8 L (42.0-52.0) % Plt Count 173 (130-400) K/uL BMP 06/22/25 05:51 Sodium 137 Potassium 4.3 Chloride 103 Carbon Dioxide 29 BUN 24 H Creatinine 0.60 Glucose 81 Calcium 8.9
[2025-06-23 06:16] LABS: Hematocrit (blood only) 25.1 % (42.0-52.0); Hemoglobin 8.7 g/dL (14.0-18.0)
[2025-06-23 06:34] LABS: Anion Gap 5.0 (3-11); Blood Urea Nitrogen 23.0 mg/dl (6-23); Calcium 8.8 mg/dl (8.6-10.3); Carbon Dioxide 29.0 mmol/L (21-32); Chloride 102.0 mmol/L (98-107); Creatinine Clr Calc Pharmacy 100.1 ml/min; Glucose 87.0 mg/dl (70-99(Fasting)); Magnesium 1.8 mg/dl (1.7-2.4); Potassium 4.3 mmol/L (3.5-5.1); Sodium 136.0 mmol/L (136-145)
--- NOTE | 2025-06-23 13:46 | Hospitalist Progress Note ---
Date of Service June 23, 2025 Assessment & Plan (1) AMS (altered mental status): Plan: Patient is a 60-year-old male with past medical history significant for generalized nonconvulsive epilepsy, juvenile seizure disorder, cephalgia, migraine variant, Parkinson disease, history of tobacco abuse, history of mixed action and resting tremor admitted for acute metabolic encephalopathy with superimposed delirium. Per family patient has been declining over course of last year. Patient noted with urinary retention--rodriguez in place. Patient more calm with use of ativan IV prn, possible reaction/akathisia from Zyprexa. Able to eat with assistance 06/08 and take po seroquel, but will keep iv meds as is given unreliable/inconsistent with accepting po intake. Acute metabolic encephalopathy, multifactorial likely secondary to dehydration/Meds Superimposed delirium Parkinson's disease CT head, face CT, CT cervical spine: Chest x-ray, CT abdomen pelvis no acute findings Urine Cx: Negative Ammonia normal Thiamine low: <6 Folate 2.08 >>22.30 S/P replacement TSH normal Valproic acid level mildly elevated--discussed with neurology, not likely to contribute Keppra level Is normal MRI without acute process Neurology suspects progression of PD Psychiatry consulted -AVOID ZYPREXA, can cause akathisia -IV Ativan for agitation -1-on-1 prn -Started on Seroquel 25mg qhs, plan to titrate up to 25mg BID for behavioral management as needed -EKG ordered daily for now for qtc monitoring -Continue with delirium prevention measures: raising blinds during the day, closing at night, frequent re-orientation, contact with family/friends, explai soren procedures/nursing care measures prior to physical contact, correct any hearing and visual impairments -For behavioral emergency: ativan 0.5 or 1 mg IV or IM for agitation. Caution this could worsen delirium. If this occurs consider use of ICU/Precedex given concern of antipsychotic use with his Parkinson's disease. --Also started on Sinemet, Artane Mental status seems to be back to baseline Continue PT OT while hospitalized Appreciate psychiatry, neurology input Needs follow-up with psychiatry, neurology on discharge Clinically improved Likely discharge home with home health tomorrow Vitamin B1 level is low Suspected metabolic/-Wernicke Encephalopathy due to low vitamin B1 level Received IV thiamine Continue p.o. thiamine Hypomagnesemia Replace and monitor Chronic anemia Labs consistent with AoCD Denies any bleeding issues Advised to get colonoscopy as outpatient Epilepsy Continue home Keppra and divalproex IV Ativan as needed for breakthrough seizures Neurology consultappreciate input and recommendation Thrombocytopenia lyme negative Thrombocytopenia resolved Monitor Parkinson's Continue carbidopa levodopa, trihexyphenidyl Extrapyramidal symptoms are better with trihexyphenidyl DVT Px: SCDs Code Status Full code Disposition Case management to help with discharge planning Admission and Anticipated Discharge Date Admission Date: June 07, 2025 Subjective Patient is seen and examined at bedside Headache is controlled Updated patient's sister over the phone Offers no new complaints Denies any chest pain, dyspnea, nausea, vomiting, abdominal pain, dizziness Review of Systems Review of Systems: All systems reviewed & are unremarkable except as noted in Subjective Physical Exam Physical Exam: Physical Exam: Vitals signs as noted above General Appearance: Thin, frail, chronic ill appearing, no apparent distress Head: normocephalic, Atraumatic Eyes: normal inspection, EOMI Neck: supple, Trachea midline Respiratory/Chest: Normal breath sounds, CTA, No accessory muscle use Cardiovascular: S1, S2, No murmur Abdomen/GI:Soft, Non tender, Bowel sounds present Extremities/Musculoskeletal:normal inspection, no edema Neurologic/Psych:AAOX3, grossly no focal neurological deficits, Intermittent tremor Skin: normal color, warm Results & Data Results & Data Vital Signs (Past 12 Hours) Vital Signs Temp Pulse Resp BP Pulse Ox O2 Del Method 06/23/25 08:28 36.6 C 74 18 97/63 L 97 Room Air Laboratory Results Short CBC 06/23/25 Range/Units 05:48 Hgb 8.7 L (14.0-18.0) g/dL Hct 25.1 L (42.0-52.0) % BMP 06/23/25 05:48 Sodium 136 Potassium 4.3 Chloride 102 Carbon Dioxide 29 BUN 23 Creatinine 0.66 Glucose 87 Calcium 8.8
[2025-06-24 08:16] VITALS: BP 95/67; PULSE 75; RESP 18; TEMP 97.3; O2SAT 93
--- NOTE | 2025-06-24 10:26 | Hospitalist Progress Note ---
Date of Service June 24, 2025 Assessment & Plan (1) AMS (altered mental status): Plan: Patient is a 60-year-old male with past medical history significant for generalized nonconvulsive epilepsy, juvenile seizure disorder, cephalgia, migraine variant, Parkinson disease, history of tobacco abuse, history of mixed action and resting tremor admitted for acute metabolic encephalopathy with superimposed delirium. Per family patient has been declining over course of last year. Patient noted with urinary retention--rodriguez in place. Patient more calm with use of ativan IV prn, possible reaction/akathisia from Zyprexa. Able to eat with assistance 06/08 and take po seroquel, but will keep iv meds as is given unreliable/inconsistent with accepting po intake. Acute metabolic encephalopathy, multifactorial likely secondary to dehydration/Meds Superimposed delirium--resolved Parkinson's disease CT head, face CT, CT cervical spine: Chest x-ray, CT abdomen pelvis no acute findings Urine Cx: Negative Ammonia normal Thiamine low: <6 Folate 2.08 >>22.30 S/P replacement TSH normal Valproic acid level mildly elevated--discussed with neurology, not likely to contribute Keppra level Is normal MRI without acute process Neurology suspects progression of PD Psychiatry consulted -AVOID ZYPREXA, can cause akathisia -IV Ativan for agitation -1-on-1 prn -Started on Seroquel 25mg qhs, plan to titrate up to 25mg BID for behavioral management as needed -EKG ordered daily for now for qtc monitoring -Continue with delirium prevention measures: raising blinds during the day, closing at night, frequent re-orientation, contact with family/friends, explaining procedures/nursing care measures prior to physical contact, correct any hearing and visual impairments -For behavioral emergency: ativan 0.5 or 1 mg IV or IM for agitation. Caution this could worsen delirium. If this occurs consider use of ICU/Precedex given concern of antipsychotic use with his Parkinson's disease. --Also started on Sinemet, Artane Mental status seems to be back to baseline Continue PT OT while hospitalized Appreciate psychiatry, neurology input Needs follow-up with psychiatry, neurology on discharge Plan to discharge home today Vitamin B1 level is low Suspected metabolic/-Wernicke Encephalopathy due to low vitamin B1 level Received IV thiamine Continue p.o. thiamine Hypomagnesemia Replace and monitor Chronic anemia Labs consistent with AoCD Denies any bleeding issues Advised to get colonoscopy as outpatient Epilepsy Continue home Keppra and divalproex IV Ativan as needed for breakthrough seizures Neurology consultappreciate input and recommendation Thrombocytopenia lyme negative Thrombocytopenia resolved Monitor Parkinson's Continue carbidopa levodopa, trihexyphenidyl Extrapyramidal symptoms are better with trihexyphenidyl DVT Px: SCDs Code Status Full code Disposition Home with Home Health Admission and Anticipated Discharge Date Admission Date: June 07, 2025 Subjective Patient is seen and examined at bedside No new complaints states feeling well today Denies any chest pain, dyspnea, nausea, vomiting, abdominal pain, dizziness Review of Systems Review of Systems: All systems reviewed & are unremarkable except as noted in Subjective Physical Exam Physical Exam: Physical Exam: Vitals signs as noted above General Appearance: Thin, frail, chronic ill appearing, no apparent distress Head: normocephalic, Atraumatic Eyes: normal inspection, EOMI Neck: supple, Trachea midline Respiratory/Chest: Normal breath sounds, CTA, No accessory muscle use Cardiovascular: S1, S2, No murmur Abdomen/GI:Soft, Non tender, Bowel sounds present Extremities/Musculoskeletal:normal inspection, no edema Neurologic/Psych:AAOX3, grossly no focal neurological deficits, Intermittent tremor Skin: normal color, warm Results & Data Results & Data Vital Signs (Past 12 Hours) Vital Signs Temp Pulse Resp BP Pulse Ox O2 Del Method 06/24/25 08:14 36.3 C L 75 18 95/67 L 93 Room Air
--- NOTE | 2025-06-24 10:34 | Discharge Summary ---
Date of Service June 24, 2025 Admission HPI Per Admitting Provider 60-year-old male with past medical history significant for generalized nonconvulsive epilepsy, juvenile seizure disorder, cephalgia, migraine variant, Parkinson disease, history of tobacco abuse, history of mixed action and resting tremor was brought in because of confusion. As per ER patient's friend/advocate brought the patient to the hospital. Patient seems falling at home. Seems friend came to know about patient condition recently and became concerned. Friend also took the patient recently to neurology on 06/01/2025. As patient is getting confused at times neurology stopped trihexyphenidyl. Not able to reach his friend currently. His phone number is not on the chart. Called his sister. Sister states on Friday she and her daughter went to check on the patient. Patient seemed very confused. Was trying to talk but not able to speak much. He was speaking 1 or 2 words per sister. He seemed very weak. Seemed not eating. Patient was walking holding furniture. There is no signs of diarrhea or nausea or vomiting per sister. Currently in ER patient received Ativan and Zyprexa. He was trying to answer but not able to speak. Mostly drowsy. Past medical history. As mentioned above Past surgical history. Colonoscopy. Reconstruction of nose. Social history. Smoked 0.3 packs a day. Alcohol rarely. No drug use. Family history. Father had diabetes. Brother has asthma. Diabetes. Maternal grandmother had hemolytic anemia. Paternal grandmother had colon cancer. Admission Exam Per Admitting Provider General- Not in acute distress. Head- atraumatic Eyes- PERRL. ENT- oropharynx clear Neck- supple, no JVD Lungs- clear to auscultation no wheezing or crackles Heart- regular rhythm; no murmur, no gallop. Abdomen- normal bowel sounds, soft, nontender, no distension Extremities- no pretibial edema, no erythema seen Neuro- Drowsy; PERRL, no facial palsy; minimal movement of extremities Principal Diagnosis Acute metabolic encephalopathy Parkinson's disease Vitamin B1 deficiency Urinary retention Discharge Data Allergies Allergy/AdvReac Type Severity Reaction Status Date / Time mushroom Allergy Unknown "ENDED UP Verified 10/09/24 04:03 IN HOSPITAL" olanzapine [From Zyprexa] AdvReac Intermediate Agitated Verified 06/08/25 18:14 Consultations 06/06/25 23:16 ED Decision to Admit Stat 06/07/25 08:00 Consult Neurology Routine 06/07/25 14:15 Consult Psychiatry Routine Procedures Performed Laboratory Results WBC 3.93 K/ul (4.8-10.8) L 06/22/25 05:51 RBC 2.92 M/uL (4.70-6.10) L 06/22/25 05:51 Hgb 8.7 g/dL (14.0-18.0) L 06/23/25 05:48 POC Hgb 13.3 g/dl (14.0-18.0) L 06/06/25 18:36 Hct 25.1 % (42.0-52.0) L 06/23/25 05:48 POC Hct 39 % (42-52) L 06/06/25 18:36 MCV 88.4 fL (80.0-100.0) 06/22/25 05:51 MCH 30.1 pg (25.0-34.0) 06/22/25 05:51 MCHC 34.1 g/dL (32.0-36.0) 06/22/25 05:51 RDW Std Deviation 49.5 fL (36.4-46.3) H 06/22/25 05:51 RDW Coeff of Alley 15.5 % (11.5-14.5) H 06/22/25 05:51 Plt Count 173 K/uL (130-400) 06/22/25 05:51 MPV 9.8 fL (9.4-12.4) 06/22/25 05:51 Immature Gran % (Auto) 0.3 % 06/22/25 05:51 Neut % (Auto) 53.3 % 06/22/25 05:51 Lymph % (Auto) 34.4 % 06/22/25 05:51 [place] % (Auto) 9.9 % 06/22/25 05:51 Eos % (Auto) 1.3 % 06/22/25 05:51 Baso % (Auto) 0.8 % 06/22/25 05:51 Neut # (Auto) 2.10 K/uL (1.40-6.50) 06/22/25 05:51 Lymph # (Auto) 1.35 K/uL (1.20-3.40) 06/22/25 05:51 [place] # (Auto) 0.39 K/uL (0.11-0.59) 06/22/25 05:51 Eos # (Auto) 0.05 K/uL (0.00-0.50) 06/22/25 05:51 Baso # (Auto) 0.03 K/uL (0.00-0.20) 06/22/25 05:51 Immature Gran # (Auto) 0.01 K/uL (0.01-0.20) 06/22/25 05:51 Platelet Estimate Decreased (Normal) L 06/06/25 18:29 PT 12.4 Seconds (9.0-12.0) H 06/06/25 18:29 INR 1.2 (0.9-1.1) H 06/06/25 18:29 POC Sodium 138 mmol/L (135-144) 06/06/25 18:36 Sodium 136 mmol/L (136-145) 06/23/25 05:48 POC Potassium 3.3 mmol/L (3.3-5.0) 06/06/25 18:36 Potassium 4.3 mmol/L (3.5-5.1) 06/23/25 05:48 POC Chloride 95 mmol/L (101-112) L 06/06/25 18:36 Chloride 102 mmol/L (98-107) 06/23/25 05:48 Carbon Dioxide 29 mmol/L (21-32) 06/23/25 05:48 POC Total CO2 32 mmol/L (24-31) H 06/06/25 18:36 Anion Gap 5 (3-11) 06/23/25 05:48 POC Anion Gap 15.0 mmol/L (16-25) L 06/06/25 18:36 POC BUN 47 mg/dl (7-18) H 06/06/25 18:36 BUN 23 mg/dl (6-23) 06/23/25 05:48 Creatinine 0.66 mg/dl (0.6-1.4) 06/23/25 05:48 POC Creatinine 1.2 mg/dl (0.6-1.3) 06/06/25 18:36 Est Cr Clr Drug Dosing 100.1 ml/min 06/23/25 05:48 eGFR 106.05 06/23/25 05:48 BUN/Creatinine Ratio 34.8 (10-20) H 06/23/25 05:48 Glucose 87 mg/dl (70-99(Fasting)) 06/23/25 05:48 POC Glucose (other) 109 mg/dl (70-99) H 06/06/25 18:36 Calcium 8.8 mg/dl (8.6-10.3) 06/23/25 05:48 POC Ioniz Calcium Omar 1.09 mmol/l (1.12-1.32) L 06/06/25 18:36 Phosphorus 3.7 mg/dl (2.5-4.9) 06/13/25 05:57 Magnesium 1.8 mg/dl (1.7-2.4) 06/23/25 05:48 Iron 97 mcg/dl (35-175) 06/07/25 15:19 TIBC 260 mcg/dl (250-450) 06/07/25 15:19 Transferrin 186 mg/dl (200-360) L 06/07/25 15:19 Transferrin % Sat 37 % (20-50) 06/07/25 15:19 Ferritin 356.1 ng/ml (8-388) 06/08/25 08:21 Total Bilirubin 0.5 mg/dl (0.2-1.0) 06/06/25 18:29 AST 11 U/L (13-39) L 06/06/25 18:29 ALT < 3 U/L (7-52) L 06/06/25 18:29 Alkaline Phosphatase 72 U/L (34-104) 06/06/25 18:29 Ammonia 55.0 umol/L (18-72) 06/07/25 07:21 Troponin I High Sens 8.2 pg/ml (0-20) 06/06/25 18:29 Total Protein 6.9 gm/dl (6.0-8.3) 06/06/25 18:29 Albumin 3.5 gm/dl (3.4-5.0) 06/06/25 18:29 Globulin 3.4 gm/dl (2.5-4.0) 06/06/25 18:29 Albumin/Globulin Ratio 1.0 (0.9-2) 06/06/25 18:29 Lipase 73 U/L (11-82) 06/06/25 18:29 Vitamin B1 <6 nmol/L (8-30) L 06/07/25 04:27 Vitamin B12 633 pg/ml (180-914) 06/07/25 04:27 Folate > 22.30 ng/ml (>5.38) 06/07/25 15:19 TSH 1.494 uIu/ml (0.300-4.500) 06/06/25 18:29 Urine Color Dark Yellow 06/06/25 22:52 Urine Appearance Clear (Clear) 06/06/25 22: Urine pH 6.0 (4.5-7.5) 06/06/25 22:52 Ur Specific [place] 1.026 (1.000-1.030) 06/06/25 22:52 Urine Protein Trace (Negative) H 06/06/25 22:52 Urine Glucose (UA) Negative (Negative) 06/06/25 22:52 Urine Ketones 1+ (Negative) H 06/06/25 22:52 Urine Blood Negative (Negative) 06/06/25 22:52 Urine Nitrite Negative (Negative) 06/06/25 22:52 Urine Bilirubin Negative (Negative) 06/06/25 22:52 Urine Urobilinogen Negative (Negative) 06/06/25 22:52 Ur Leukocyte Esterase Trace (Negative) H 06/06/25 22:52 Urine WBC (Auto) 0-5 /hpf (0-5) 06/06/25 22:52 Urine RBC (Auto) 0-2 /hpf (0-2) 06/06/25 22:52 U Hyaline Cast (Auto) 3-5 /lpf (0-2) H 06/06/25 22:52 U Epithel Cells (Auto) 0-2 /hpf (0-2) 06/06/25 22:52 Urine Bacteria (Auto) 2+ (None Seen) H 06/06/25 22:52 Urine Comment 06/06/25 22:52 Valproic Acid 102 mcg/ml (50-100) H 06/06/25 18:29 Levetiracetam 39.7 mcg/mL (6.0-46.0) 06/06/25 18:29 Anaplasma Smear See Comment 06/07/25 10: A. phagocytophilum DNA Negative (Negative) 06/07/25 10: Babesia Smear See Comment 06/07/25 10:26 Babesia microti DNA PCR Not Detected (Not Detected) 06/07/25 10:26 Lyme Disease Screen Negative (Negative) 06/07/25 10:26 Impressions Abdomen/Pelvis CT 06/06/25 18:42 Exam(s): CT ABDOMEN + PELVIS With Contrast IV Amt: 90cc opti 320 EXAM: CT Abdomen and Pelvis With Intravenous Contrast CLINICAL HISTORY: Reason for exam: weight loss, hypotension. TECHNIQUE: Axial computed tomography images of the abdomen and pelvis with intravenous contrast. CTDI is 6 years 13 mGy and DLP is 648 mGy-cm. Automated exposure control was utilized for the study. A dose lowering technique was utilized adhering to the principles of ALARA. CONTRAST: Patient received 90cc opti 320 of IV contrast COMPARISON: No relevant prior studies available. FINDINGS: Lung bases: Unremarkable. No mass. No consolidation. ABDOMEN: Liver: Unremarkable. No mass. Gallbladder and bile ducts: Unremarkable. No calcified stones. No ductal dilation. Pancreas: Unremarkable. No mass. No ductal dilation. Spleen: Unremarkable. No splenomegaly. Adrenals: Unremarkable. No mass. Kidneys and ureters: Scattered bilateral renal cortical cysts are seen, the largest one measuring up to 3.4 cm in diameter. Stomach and bowel: Mild sigmoid colonic diverticulosis. No obstruction. No mucosal thickening. PELVIS: Appendix: No findings to suggest acute appendicitis. Bladder: Unremarkable. No mass. Reproductive: Unremarkable as visualized. ABDOMEN and PELVIS: Intraperitoneal space: Unremarkable. No free air. No significant fluid collection. Bones/joints: There is T12 chronic anterior wedge compression deformity. No dislocation. Soft tissues: Unremarkable. Vasculature: Unremarkable. No abdominal aortic aneurysm. Lymph nodes: Unremarkable. No enlarged lymph nodes. IMPRESSION: No neoplastic process seen in the abdomen Electronically signed by: Ian Calderon MD 06/06/25 21:[address] 06/06/25 18:42 Exam(s): CT C SPINE EXAM: CT Cervical Spine Without Intravenous Contrast CLINICAL HISTORY: Reason for exam: trauma. TECHNIQUE: Axial computed tomography images of the cervical spine without intravenous contrast. CTDI is 26 mGy and DLP is 731 mGy-cm. Automated exposure control was utilized for the study. A dose lowering technique was utilized adhering to the principles of ALARA. COMPARISON: No relevant prior studies available. FINDINGS: Vertebrae: Unremarkable. No acute fracture. Discs/spinal canal/neural foramina: No acute findings. No spinal canal stenosis. Moderately degenerative disc disease changes seen in the cervical spine. Soft tissues: Unremarkable. IMPRESSION: Normal cervical spine CT. Electronically signed by: Ian Calderon MD 06/06/25 20:44 PM Chest X-Ray 06/06/25 18:42 Exam: Chest one view portable. Reason for exam: Weakness. Previous studies: 06/04/2019. FINDINGS: Cardiac size remains normal. Emphysematous changes noted. No acute lung infiltrate or edema seen. Old fracture left fourth rib. IMPRESSION: Probable COPD. Otherwise negative for acute disease. Electronically signed by Bimal Bess 06-06-2025 9:[address] 06/06/25 18:42 Exam(s): CT FACIAL Without Contrast EXAM: CT Maxillofacial Without Intravenous Contrast CLINICAL HISTORY: Reason for exam: trauma. TECHNIQUE: Axial computed tomography images of the face without intravenous contrast. CTDI is 26 mGy and DLP is 731 mGy-cm. Automated exposure control was utilized for the study. A dose lowering technique was utilized adhering to the principles of ALARA. COMPARISON: No relevant prior studies available. FINDINGS: Bones/joints: No acute fracture. Soft tissues: Unremarkable. Orbits: Unremarkable. Sinuses: Mucus retention cysts are seen in the right maxillary sinus. No air-fluid levels. IMPRESSION: No acute facial fracture Electronically signed by: Ian Calderon MD 06/06/25 21:[address] 06/06/25 18:42 Exam(s): CT HEAD Without Contrast EXAM: CT Head Without Intravenous Contrast CLINICAL HISTORY: Reason for exam: trauma. TECHNIQUE: Axial computed tomography images of the head/brain without intravenous contrast. CTDI is 36.79 mGy and DLP is 624 mGy-cm. Automated exposure control was utilized for the study. A dose lowering technique was utilized adhering to the principles of ALARA. COMPARISON: No relevant prior studies available. FINDINGS: Brain: Unremarkable. No hemorrhage. No significant white matter disease. No edema. Ventricles: Unremarkable. No ventriculomegaly. Bones/joints: Unremarkable. No acute fracture. Soft tissues: Unremarkable. Sinuses: Unremarkable as visualized. No acute sinusitis. Mastoid air cells: Unremarkable as visualized. No mastoid effusion. IMPRESSION: Normal head/brain CT. Electronically signed by: Ian Calderon MD 06/06/25 20:58 PM Brain MRI 06/07/25 03:02 MR brain wo/w con HISTORY: 60 years-old Male confusion acutely altered mental status like activity COMPARISON: Head CT 06/06/2025, brain MR 10/09/2024 TECHNIQUE: Multiplanar multisequence MRI of the brain was obtained with and without IV contrast FINDINGS: Study is motion degraded. No restricted diffusion to suggest an acute or subacute infarct. Midline structures are unremarkable. Degenerative changes of the cervical spine. No acute intracranial hemorrhage, midline shift, abnormal extra-axial collection, hydrocephalus or intra-axial mass. Involutional changes of the brain parenchyma. Minimal T2/FLAIR hyperintense foci within the white matter are nonspecific and may represent early changes of chronic microvascular ischemic disease. Cerebral venous sinuses and major arterial flow voids appear patent as visualized. Mild mucosal thickening of the right maxillary sinus. Trace mastoid effusions are suggested. No abnormal enhancement. IMPRESSION: 1. Motion degraded exam without acute intracranial abnormality identified. 2. No acute infarct. 3. No abnormal enhancement. ACT 112: Negative or not required by law. The above report was generated using voice recognition software. It may contain grammatical, syntax or spelling errors. Electronically signed by: Seb Williamson M.D. 06/07/2025 11:02 AM Ordered Studies 06/06/25 18:42 CT abd pelvis IV con only Stat CT cervical spine wo con Stat CT facial bones wo con Stat CT head/brain wo con Stat 06/07/25 03:02 MRI Brain [MR brain wo/w con] Urgent Hospital Course (1) AMS (altered mental status): Patient is a 60-year-old male with past medical history significant for generalized nonconvulsive epilepsy, juvenile seizure disorder, cephalgia, migraine variant, Parkinson disease, history of tobacco abuse, history of mixed action and resting tremor admitted for acute metabolic encephalopathy with superimposed delirium. Per family patient has been declining over course of last year. Patient noted with urinary retention--rodriguez in place. Patient more calm with use of ativan IV prn, possible reaction/akathisia from Zyprexa. Able to eat with assistance 06/08 and take po seroquel, but will keep iv meds as is given unreliable/inconsistent with accepting po intake. Acute metabolic encephalopathy, multifactorial likely secondary to dehydration/Meds Superimposed delirium--resolved Parkinson's disease CT head, face CT, CT cervical spine: Chest x-ray, CT abdomen pelvis no acute findings Urine Cx: Negative Ammonia normal Thiamine low: <6 Folate 2.08 >>22.30 S/P replacement TSH normal Valproic acid level mildly elevated--discussed with neurology, not likely to contribute Keppra level Is normal MRI without acute process Neurology suspects progression of PD Psychiatry consulted -AVOID ZYPREXA, can cause akathisia -IV Ativan for agitation -1-on-1 prn -Started on Seroquel 25mg qhs, plan to titrate up to 25mg BID for behavioral management as needed -EKG ordered daily for now for qtc monitoring -Continue with delirium prevention measures: raising blinds during the day, closing at night, frequent re-orientation, contact with family/friends, explaining procedures/nursing care measures prior to physical contact, correct any hearing and visual impairments -For behavioral emergency: ativan 0.5 or 1 mg IV or IM for agitation. Caution this could worsen delirium. If this occurs consider use of ICU/Precedex given concern of antipsychotic use with his Parkinson's disease. --Also started on Sinemet, Artane Mental status seems to be back to baseline Continue PT OT while hospitalized Appreciate psychiatry, neurology input Needs follow-up with psychiatry, neurology on discharge Plan to discharge home today Vitamin B1 level is low Suspected metabolic/-Wernicke Encephalopathy due to low vitamin B1 level Received IV thiamine Continue p.o. thiamine Hypomagnesemia Replace and monitor Chronic anemia Labs consistent with AoCD Denies any bleeding issues Advised to get colonoscopy as outpatient Epilepsy Continue home Keppra and divalproex IV Ativan as needed for breakthrough seizures Neurology consultappreciate input and recommendation Thrombocytopenia lyme negative Thrombocytopenia resolved Monitor Parkinson's Continue carbidopa levodopa, trihexyphenidyl Extrapyramidal symptoms are better with trihexyphenidyl Urinary retention Started on Flomax May need follow-up with urology on discharge DVT Px: SCDs Code Status Full code Disposition Home with Home Health Total Time Total Time Spent Total Time Spent (In Minutes): 55 minutes Discharge Plan Discharge Items Patient Disposition: Home - Home Health Services Reason For Visit: CONFUSION Discharge Diagnosis: Acute metabolic encephalopathy Parkinson's disease Vitamin B1 deficiency Urinary retention Condition on Discharge: Fair Activity: Per Instructions section Exercise/Sports: Gradually increase as tolerated Non-emergency contact: Primary Care Provider and Neurologist Call non-emergency contact if: you have any medication questions, your symptoms worsen, your pain is concerning for you and you have a fever Follow-up/Referrals: Faraz Downey DO [Primary Care Provider] - (Date & Time 06/29/2025 11:00 AM Provider: Faraz Downey DO Department Family Practice [facility] ) Sera Gonzalez PA-C [Physician Post Partum Nurse] - (Date & Time 07/05/2025 12:30 PM Provider: Sera Gonzalez PA-C Neurology [facility] ) Diet: Regular Diet Texture: Dental soft (bite-sized) Addtl Attending Provider Instructions: -- Follow-up with your primary care physician on 06/29/2025 11:00 AM -- Follow-up with your neurologist Sera Gonzalez on 07/05/2025 12:30 PM -- Continue following with your urologist to rule out prostate enlargement as you are incidentally found to have urinary retention while you are hospitalized. Seek immediate medical attention if your symptoms reoccur or worsen Please review medication list provided on discharge for any medication changes as instructed. Please call if you have any questions or problems. You can reach a [facility] hospitalist on duty at [facility] 24 hours a day by calling [phone] Pending Studies at Discharge: No Stand-Alone Forms: My [facility], Smoking Cessation Medications and DC Order Prescriptions: New quetiapine 25 mg Tablet 25 mg PO HS Qty: 30 0RF thiamine HCl (vitamin B1) 100 mg Tablet 100 mg PO QAM Qty: 30 0RF tamsulosin 0.4 mg Capsule 0.4 mg PO QAM Qty: 30 0RF trihexyphenidyl 2 mg Tablet 2 mg PO QAM Qty: 30 0RF Continued divalproex 250 mg tablet,delayed release (DR/EC) 250 mg PO BID carbidopa-levodopa 50-200 mg tablet extended release 1 tab PO UD Rx Instructions: one tablet three times daily at 3am, Noon and 8pm divalproex 500 mg tablet,delayed release (DR/EC) 1,000 mg PO BID levetiracetam 250 mg tablet 500 mg PO BID Discharge Orders: Discharge Order (Routine); Ordered 06/24/25 Ordered By: Syed Pittman Admission Data Admit Date/Time: 06/07/25 02:41 Attending Provider: Syed Pittman Admit Provider: Walt Gilbert Primary Care Provider: Faraz Downey Other Providers: Walt Gilbert; Angela Blas; Medhat Luque; Angela Pradhan; Bimal Garland; Moises Coffey; Tray Swanson; Rubin Singh; Sera Gonzalez; Derrek Kunz; Gab Dahl; Vaishali Ascencio; David Jimenez; Elena Hendrix; Rubin Jensen; Leonela Lyle; Nasreen Walsh; Lilibeth Koroma; Medhat Dwyer; Tanja Clark; Bimal Diallo; Raven Rogel.; Elizabeth Cooper; Alonzo Bush; Mahogany Herbert; Jose J Gomez; Maryanne Hudson; [facility]
== END 2025-06-24 13:59 | disposition home health service (06) | DRG 640 ==
LOC: ED 17:40 → EDINP 06-07 02:41 → SUATTDRO 06-07 02:41 → 2S 06-07 03:02 → 3E 06-09 19:37